=== PATIENT | male | born 1955 ===

== ENCOUNTER 2016-12-12 16:53 | Inpatient (IN) | payer OTHER ==
[2016-12-12] MEDS ORDERED: IBUPROFEN 600 MG TAB PO STA (17:16)
[2016-12-12] MEDS ORDERED: ACETAMINOPHEN TAB 325 MG TAB PO STA ×2 (17:16→18:43)
[2016-12-12] MEDS ORDERED: HYDROmorphone 1 MG/ML 1 ML SYRINGE IVP STA (17:31)
[2016-12-12] MEDS ORDERED: ALBUTEROL NEBULIZED 7.5 MG, IPRATROPIUM NEBULIZED 0.5 MG, SODIUM CHLORIDE 0.9% NEBULIZ ... INHALATION ONE ×3 (17:32)
--- NOTE | 2016-12-12 17:43 | ED ---
SOB HPI - General Source: patient, family, RN notes reviewed Mode of arrival: wheelchair Limitations: no limitations <Alisa Torre - Last Filed: 12/12/16 19:37> <Demian Michael - Last Filed: 12/12/16 19:51> - General Chief Complaint: Shortness of Breath Stated Complaint: Legs Numb Time Seen by Provider: 12/12/16 17:01 - History of Present Illness Initial Comments: 61-year-old male presents to the emergency department with a chief complaint of weakness. The patient has been weak for the past few days. They state that they've noticed changes in his breathing. He stated at home it was down to 84. They state that they have noticed that he has not been eating much and he has been having falls at home due to weakness in his lower extremities. They state that at the beginning of fall this about one week ago he did complain of some neck discomfort and he has pain with movement of the neck. Patient states that there is no fall or injury that developed this discomfort. Patient denies any nausea or vomiting and the patient. The patient states besides his neck hurting he has no complaints. Family states that they do notice obvious shortness of breath as well. They state that they were concerned due to the patient's symptoms so they thought that they should be evaluated. Patient denies any recent chest pain, back pain, abdominal pain, nausea vomiting, numbness or tingling, dysuria or hematuria, constipation or diarrhea, headaches or visual changes, or any other current symptoms. (Alisa Torre) - Related Data Home Medications Medication Instructions Recorded Confirmed ALPRAZolam [Xanax] 0.25 mg PO BID PRN 12/12/16 12/12/16 Aspirin [Adult Low Dose Aspirin EC] 81 mg PO DAILY 12/12/16 12/12/16 Atorvastatin [Lipitor] 20 mg PO DAILY 12/12/16 12/12/16 Glimepiride [Amaryl] 2 mg PO BID 12/12/16 12/12/16 Labetalol [Trandate] 200 mg PO BID 12/12/16 12/12/16 Zolpidem [Ambien] 5 mg PO HS PRN 12/12/16 12/12/16 amLODIPine BESYLATE/BENAZEPRIL 1 cap PO DAILY 12/12/16 12/12/16 [amLODIPine BESYLATE/BENAZEPRIL 10-20 mg] metFORMIN HCL 1,000 mg PO BID 12/12/16 12/12/16 oxyCODONE-APAP 5-325MG [Percocet 0.5 - 1 tab PO Q6HR PRN 12/12/16 12/12/16 5-325 mg] Allergies Allergy/AdvReac Type Severity Reaction Status Date / Time No Known Allergies Allergy Verified 12/12/16 17:16 Review of Systems ROS Other: All systems not noted in ROS Statement are negative. <Alisa Torre - Last Filed: 12/12/16 19:37> ROS Other: All systems not noted in ROS Statement are negative. <Demian Michael - Last Filed: 12/12/16 19:51> ROS Statement: Those systems with pertinent positive or pertinent negative responses have been documented in the HPI. Past Medical History Past Medical History: Diabetes Mellitus, Hypertension History of Any Multi-Drug Resistant Organisms: None Reported Past Surgical History: Hernia Repair Past Psychological History: No Psychological Hx Reported Smoking Status: Never smoker Past Alcohol Use History: None Reported Past Drug Use History: None Reported <Alisa Torre - Last Filed: 12/12/16 19:37> General Exam Limitations: no limitations <Alisa Torre - Last Filed: 12/12/16 19:37> <Demian Michael - Last Filed: 12/12/16 19:51> - General Exam Comments Initial Comments: General: The patient is awake and alert, in no distress, and does not appear acutely ill. Eye: Pupils are equal, round and reactive to light, extra-ocular movements are intact; there is normal conjunctiva bilaterally. No signs of icterus. Ears, nose, mouth and throat: There are dry mucous membranes. Neck: The neck is supple, there is tenderness palpation midline. Cardiovascular: There is a regular rate and rhythm. No murmur, rub or gallop is appreciated. Respiratory: Patient being unable to sit up in the room unable to get a good examination of the patient's lungs at this time. Patient does have an obese body habitus he does appear to have some respiratory distress. Gastrointestinal: Soft, non-distended, non-tender abdomen without masses or organomegaly noted. There is no rebound or guarding present. No CVA tenderness. Bowel sounds are unremarkable. Back: There is no tenderness to palpation in the midline. There is no obvious deformity. No rashes noted. Musculoskeletal: Normal ROM, no tenderness, There is no pedal edema. There is no calf tenderness or swelling. Sensation intact. Pulses equal bilaterally 2+. Neurological: CN II-XII intact, There are no obvious motor or sensory deficits. Coordination appears grossly intact. Speech is normal. Skin: Skin is warm and dry and no rashes or lesions are noted. Psychiatric: Cooperative, appropriate mood & affect, normal judgment. (Alisa Torre) Medical Decision Making - Lab Data Result diagrams: 12/12/16 17:40 12/12/16 17:40 - Radiology Data Radiology results: report reviewed, image reviewed <Alisa Torre - Last Filed: 12/12/16 19:37> - Lab Data Result diagrams: 12/12/16 17:40 12/12/16 17:40 <Demian Michael - Last Filed: 12/12/16 19:51> - Medical Decision Making 61-year-old male with a chief complaint of what appears to be fever and weakness. At this time patient's lab work has been reviewed. Patient has an elevated white blood cell count with a concern for possible pneumonia as well as concern for UTI. Patient was given Rocephin as well as Levaquin here in the emergency department. Patient is also found to be in DKA as well as dehydration at this time. We did give the patient fluid bolus. We did not meet the criteria for fluid hydration due to the fact that the patient is obese and this requires a large fluid bolus of 4358 along with an elevated BNP with concern for possible heart failure as well as for sepsis as well as the DKA. This time we will get a 3 L bolus and the patient can be reevaluated at that time for further fluid necessity. At this time the severity of the case was discussed with the family. We did discuss we will be admitting to the ICU. We did discuss the lab findings. They state that they understood. (Alisa Torre) Decision-making. The patient arrived emergency room with complaint of runs of breath. Labs find of the patient's chest x-ray shows possible left lower lobe pneumonia. Rations labs show white count 12.6 hemoglobin 13 hematocrit of 43, and INR 1.0. Lites show a sodium states his sodium to be low at 128 as chlorides 90. Potassium is 4.0. BUN is elevated at 44 creatinine elevated at 2.12 significantly elevated blood sugar 749. Patient reports that he's been altering his medications at home and has not been taking any medications for the last week or more. Patient is pleasant last gas is 3.4. CK is elevated at 3188 with MB of 6.0 and troponin 0.059. BNP is 1900. Chest x-ray reviewed radiologist suggests left lower lobe pneumonia. Urinalysis shows 10 reds 33 whites. Influenza is negative. Troponin is negative. I examine the patient and interviewed the patient. I discussed the case with Dr. Harrell who is coming emergency room the see the patient. Dr. Michael (Demian Michael) - Lab Data Lab Results 12/12/16 12/12/16 12/12/16 Range/Units 17:40 17:40 17:40 WBC 12.6 H (3.8-10.6) k/uL RBC 4.81 (4.30-5.90) m/uL Hgb 13.8 (13.0-17.5) gm/dL Hct 43.0 (39.0-53.0) % MCV 89.5 (80.0-100.0) fL MCH 28.7 (25.0-35.0) pg MCHC 32.1 (31.0-37.0) g/dL RDW 13.7 (11.5-15.5) % Plt Count 170 (150-450) k/uL Neutrophils % 87 % Lymphocytes % 4 % Monocytes % 6 % Eosinophils % 0 % Basophils % 0 % Neutrophils # 10.9 H (1.3-7.7) k/uL Lymphocytes # 0.5 L (1.0-4.8) k/uL Monocytes # 0.8 (0-1.0) k/uL Eosinophils # 0.0 (0-0.7) k/uL Basophils # 0.1 (0-0.2) k/uL PT (9.0-12.0) sec INR (<1.1) APTT (22.0-30.0) sec Sodium 128 L (137-145) mmol/L Potassium 4.0 (3.5-5.1) mmol/L Chloride 90 L (98-107) mmol/L Carbon Dioxide 25 (22-30) mmol/L Anion Gap 13 mmol/L BUN 44 H (9-20) mg/dL Creatinine 2.12 H (0.66-1.25) mg/dL Est GFR (MDRD) Af Amer 39 (>60 ml/min/1.73 sqM) Est GFR (MDRD) Non-Af 32 (>60 ml/min/1.73 sqM) Glucose 749 H* (74-99) mg/dL Plasma Lactic Acid Juan A 3.4 H* (0.7-2.0) mmol/L Calcium 8.3 L (8.4-10.2) mg/dL Total Bilirubin 1.0 (0.2-1.3) mg/dL AST 77 H (17-59) U/L ALT 47 (21-72) U/L Alkaline Phosphatase 112 (38-126) U/L Total Creatine Kinase (55-170) U/L CK-MB (CK-2) (0.0-2.4) ng/mL CK-MB (CK-2) Rel Index Troponin I (0.000-0.034) ng/mL NT-Pro-B Natriuret Pep pg/mL Total Protein 5.7 L (6.3-8.2) g/dL Albumin 2.9 L (3.5-5.0) g/dL Urine Color Urine Appearance (Clear) Urine pH (5.0-8.0) Ur Specific [place] (1.001-1.035) Urine Protein (Negative) Urine Glucose (UA) (Negative) Urine Ketones (Negative) Urine Blood (Negative) Urine Nitrite (Negative) Urine Bilirubin (Negative) Urine Urobilinogen (<2.0) mg/dL Ur Leukocyte Esterase (Negative) Urine RBC (0-5) /hpf Urine WBC (0-5) /hpf Ur Squamous Epith Cells (0-4) /hpf Urine Bacteria (None) /hpf Acetone, Qual (Negative) Influenza Type A RNA (Not Detectd) Influenza Type B (PCR) (Not Detectd) 12/12/16 12/12/16 12/12/16 Range/Units 17:40 17:40 17:40 WBC (3.8-10.6) k/uL RBC (4.30-5.90) m/uL Hgb (13.0-17.5) gm/dL Hct (39.0-53.0) % MCV (80.0-100.0) fL MCH (25.0-35.0) pg MCHC (31.0-37.0) g/dL RDW (11.5-15.5) % Plt Count (150-450) k/uL Neutrophils % % Lymphocytes % % Monocytes % % Eosinophils % % Basophils % % Neutrophils # (1.3-7.7) k/uL Lymphocytes # (1.0-4.8) k/uL Monocytes # (0-1.0) k/uL Eosinophils # (0-0.7) k/uL Basophils # (0-0.2) k/uL PT 10.6 (9.0-12.0) sec INR 1.0 (<1.1) APTT 25.3 (22.0-30.0) sec Sodium (137-145) mmol/L Potassium (3.5-5.1) mmol/L Chloride (98-107) mmol/L Carbon Dioxide (22-30) mmol/L Anion Gap mmol/L BUN (9-20) mg/dL Creatinine (0.66-1.25) mg/dL Est GFR (MDRD) Af Amer (>60 ml/min/1.73 sqM) Est GFR (MDRD) Non-Af (>60 ml/min/1.73 sqM) Glucose (74-99) mg/dL Plasma Lactic Acid Juan A (0.7-2.0) mmol/L Calcium (8.4-10.2) mg/dL Total Bilirubin (0.2-1.3) mg/dL AST (17-59) U/L ALT (21-72) U/L Alkaline Phosphatase (38-126) U/L Total Creatine Kinase 3188 H (55-170) U/L CK-MB (CK-2) 6.0 H* (0.0-2.4) ng/mL CK-MB (CK-2) Rel Index Troponin I 0.059 H* (0.000-0.034) ng/mL NT-Pro-B Natriuret Pep pg/mL Total Protein (6.3-8.2) g/dL Albumin (3.5-5.0) g/dL Urine Color Urine Appearance (Clear) Urine pH (5.0-8.0) Ur Specific [place] (1.001-1.035) Urine Protein (Negative) Urine Glucose (UA) (Negative) Urine Ketones (Negative) Urine Blood (Negative) Urine Nitrite (Negative) Urine Bilirubin (Negative) Urine Urobilinogen (<2.0) mg/dL Ur Leukocyte Esterase (Negative) Urine RBC (0-5) /hpf Urine WBC (0-5) /hpf Ur Squamous Epith Cells (0-4) /hpf Urine Bacteria (None) /hpf Acetone, Qual (Negative) Influenza Type A RNA Not Detected (Not Detectd) Influenza Type B (PCR) Not Detected (Not Detectd) 12/12/16 12/12/16 12/12/16 Range/Units 17:40 17:40 17:40 WBC (3.8-10.6) k/uL RBC (4.30-5.90) m/uL Hgb (13.0-17.5) gm/dL Hct (39.0-53.0) % MCV (80.0-100.0) fL MCH (25.0-35.0) pg MCHC (31.0-37.0) g/dL RDW (11.5-15.5) % Plt Count (150-450) k/uL Neutrophils % % Lymphocytes % % Monocytes % % Eosinophils % % Basophils % % Neutrophils # (1.3-7.7) k/uL Lymphocytes # (1.0-4.8) k/uL Monocytes # (0-1.0) k/uL Eosinophils # (0-0.7) k/uL Basophils # (0-0.2) k/uL PT (9.0-12.0) sec INR (<1.1) APTT (22.0-30.0) sec Sodium (137-145) mmol/L Potassium (3.5-5.1) mmol/L Chloride (98-107) mmol/L Carbon Dioxide (22-30) mmol/L Anion Gap mmol/L BUN (9-20) mg/dL Creatinine (0.66-1.25) mg/dL Est GFR (MDRD) Af Amer (>60 ml/min/1.73 sqM) Est GFR (MDRD) Non-Af (>60 ml/min/1.73 sqM) Glucose (74-99) mg/dL Plasma Lactic Acid Juan A (0.7-2.0) mmol/L Calcium (8.4-10.2) mg/dL Total Bilirubin (0.2-1.3) mg/dL AST (17-59) U/L ALT (21-72) U/L Alkaline Phosphatase (38-126) U/L Total Creatine Kinase (55-170) U/L CK-MB (CK-2) (0.0-2.4) ng/mL CK-MB (CK-2) Rel Index Troponin I (0.000-0.034) ng/mL NT-Pro-B Natriuret Pep 1900 pg/mL Total Protein (6.3-8.2) g/dL Albumin (3.5-5.0) g/dL Urine Color Yellow Urine Appearance Cloudy (Clear) Urine pH 5.0 (5.0-8.0) Ur Specific [place] 1.014 (1.001-1.035) Urine Protein 1+ H (Negative) Urine Glucose (UA) 4+ H (Negative) Urine Ketones Negative (Negative) Urine Blood Moderate H (Negative) Urine Nitrite Negative (Negative) Urine Bilirubin Negative (Negative) Urine Urobilinogen <2.0 (<2.0) mg/dL Ur Leukocyte Esterase Small H (Negative) Urine RBC 10 H (0-5) /hpf Urine WBC 33 H (0-5) /hpf Ur Squamous Epith Cells 1 (0-4) /hpf Urine Bacteria Occasional H (None) /hpf Acetone, Qual Negative (Negative) Influenza Type A RNA (Not Detectd) Influenza Type B (PCR) (Not Detectd) Critical Care Time Critical Care Time: Yes Total Critical Care Time: 45 <Demian Michael - Last Filed: 12/12/16 19:51> Disposition Time of Disposition: 19:13 Decision Date: 12/12/16 Decision Time: 19:13 <Alisa Torre - Last Filed: 12/12/16 19:37> <Demian Michael - Last Filed: 12/12/16 19:51> Clinical Impression: DKA, type 2, Septic shock, UTI (urinary tract infection), Bilateral pneumonia, Acute CHF (congestive heart failure), Acute kidney injury, Dehydration Disposition: ADMITTED IP TO THIS HOSP Condition: Critical Addendum entered and electronically signed by Alisa Torre PAC 12/12/16 19:37: Sinus tachycardia 108 bpm, normal axis, no atopy, no S-T depressions or elevations,
[2016-12-12] MEDS ORDERED: SODIUM CHLORIDE 0.9% 1,000 ML IV STA ×3 (17:46→19:34)
[2016-12-12 18:18] LABS: Basophils # (A) 0.1 k/uL (0-0.2); Basophils % (A) 0 %; CH 28.9; CHCM 32.4; Eosinophils % (A) 0 %; HDW 2.93; HGB 13.8 gm/dL (13.0-17.5); Luc # (Auto) 0.35; Luc % (Auto) 3; Lymphocytes # (A) 0.5 k/uL (1.0-4.8); Lymphocytes % (A) 4 %; MCH 28.7 pg (25.0-35.0); MCHC 32.1 g/dL (31.0-37.0); MCV 89.5 fL (80.0-100.0); Mean Platelet Volume 8.9; Monocytes # (A) 0.8 k/uL (0-1.0); Monocytes % (A) 6 %; Neutrophils # (A) 10.9 k/uL (1.3-7.7); Neutrophils % (A) 87 %; RBC 4.81 m/uL (4.30-5.90); RDW 13.7 % (11.5-15.5); WBC 12.6 k/uL (3.8-10.6); WBC (Perox) 12.19
--- NOTE | 2016-12-12 18:30 | XR ---
EXAMINATION TYPE: XR chest 2V DATE OF EXAM: 12/12/2016 6:21 PM COMPARISON: NONE HISTORY: Fever per order. Weakness and shortness of breath for 1 day per patient. TECHNIQUE: Frontal and lateral views of the chest are obtained. FINDINGS: Lateral views essentially nondiagnostic due to patient's large body habitus low lung volume s are present. Cardiomegaly is seen. Ectatic aorta is noted. Visualized right lung is clear. Left low er lung is suboptimally evaluated cannot exclude infiltrate at this level. No large pleural effusion or pneumothorax is seen bilaterally. The osseous structures are intact. IMPRESSION: Suboptimal study, there is cardiomegaly and low lung volumes. Cannot exclude left lower l halie infiltrate on patient of this size.
[2016-12-12 18:31] LABS: Appearance,Urine Cloudy (Clear); Bacteria,Urine Occasional /hpf; Bilirubin,Urine Negative (Negative); Glucose,Urine (UA) 4+ (Negative); Ketones,Urine Negative (Negative); Leukocyte Esterase,Urine Small (Negative); Nitrite,Urine Negative (Negative); Particle Count 11429; Protein,Urine 1+ (Negative); RBC,Urine 10 /hpf (0-5); Specific Gravity,Urine 1.014 (1.001-1.035); Squamous Epithelial Cell,Urine 1 /hpf (0-4); UA Billing (MACRO vs. MICRO) MICRO; Urobilinogen,Urine <2.0 mg/dL (<2.0); WBC,Urine 33 /hpf (0-5)
[2016-12-12 18:35] LABS: Calcium 8.3 mg/dL (8.4-10.2); Total Protein 5.7 g/dL (6.3-8.2)
[2016-12-12] MEDS ORDERED: IBUPROFEN 200 MG TAB PO STA (18:44)
[2016-12-12] MEDS: SODIUM CHLORIDE 0.9% 500 ML IV SCH ×2 (18:45→19:15)
[2016-12-12 18:48] LABS: Partial Thromboplastin Time 25.3 sec (22.0-30.0); Prothrombin Time 10.6 sec (9.0-12.0)
[2016-12-12 18:52] LABS: Troponin I 0.059 ng/mL (0.000-0.034)
[2016-12-12] MEDS ORDERED: INSULIN REGULAR BOLUS (FROM DRIP BAG) IV ONE (18:56)
[2016-12-12] MEDS ORDERED: SODIUM CHLORIDE 0.9% 1,000 ML IV SCH (19:00)
[2016-12-12] MEDS ORDERED: D5-0.45% NACL WITH KCL 20MEQ/L 1,000 ML IV SCH (19:00)
--- NOTE | 2016-12-12 19:01 | CT ---
EXAMINATION TYPE: CT brain yesenia garcía DATE OF EXAM: 12/12/2016 6:48 PM COMPARISON: NONE HISTORY: Bilateral leg weakness and numbness. Headache and neck pain. CT DLP: 1659.70 mGycm. Automated Exposure Control for Dose Reduction was Utilized. TECHNIQUE: CT scan of the head and cervical spine are performed without contrast. FINDINGS: There is no acute intracranial hemorrhage or midline shift identified. There is mild vent ricular and sulcal prominence. There is mild low-attenuation periventricular white matter. Old lacun ar infarct right basal ganglia is felt present on axial image 24. The globes are intact and the visua lized sinuses are clear. Cervical spine is visualized in its entirety from C1 through upper thoracic levels and demonstrates r eversal of normal cervical curvature without evidence of acute fracture or dislocation. Prevertebral soft tissue appears within normal limits. The C1-C2 articulation is within normal limits on the cor onal images. Vertebral body heights are maintained. There is moderate spurring and disc space narrowing at C4-C5 t hrough C6-C7 levels. Reconstructed images are suboptimal due to artifact related to body habitus. Axial images C3-C4 level show broad-based central disc protrusion effacing anterior thecal sac and ca using moderate left greater than right neural foraminal narrowing. Axial images at mid to lower cervical levels are suboptimal as are degraded by artifact related to marilynn aviles's body habitus. Some uncovertebral facet degenerative changes and marginal spurring contribute bilateral neural foraminal narrowing at C4-C5 level. Spinal canal is suboptimally evaluated. Lung api avery are not included. IMPRESSION: 1. There is no acute fracture or dislocation evident in the cervical spine. Suboptimal study with str aightening and moderate multilevel degenerative changes. 2. No acute intracranial hemorrhage or midline shift shift is seen. There is mild diffuse age-related cerebral atrophy and chronic small vessel ischemic change with old right-sided lacunar infarct felt present.
[2016-12-12] MEDS ORDERED: LEVOFLOXACIN 750MG-D5W PMX 750 MG in DEXTROSE/WATER 1 150ML.BAG IVPB STA (19:04)
[2016-12-12] MEDS ORDERED: ZOLPIDEM 5 MG TAB PO PRN (19:07)
[2016-12-12] MEDS ORDERED: IPRATROPIUM-ALBUTEROL 3 ML NEB INHALATION PRN (19:13)
[2016-12-12] MEDS ORDERED: LEVOFLOXACIN 750MG-D5W PMX 750 MG in DEXTROSE/WATER 1 150ML.BAG IVPB SCH (19:15)
[2016-12-12] MEDS: INSULIN REGULAR 100 UNIT in SODIUM CHLORIDE 0.9% 100 ML IV SCH ×3 (19:32→23:59)
[2016-12-12 20:03] LABS: Glucose,Whole Blood 596 mg/dL (75-99)
[2016-12-12 20:29] LABS: Glucose,Whole Blood 523 mg/dL (75-99)
[2016-12-12] MEDS ORDERED: SODIUM CHLORIDE 0.9% 2,000 ML IV ONE (20:45)
[2016-12-12] MEDS: NOREPINEPHRIN 4 MG-0.9% NS PMX 4 MG/250 ML ML IV SCH (21:00)
[2016-12-12] MEDS ORDERED: LABETALOL 200 MG TAB PO SCH (21:00)
[2016-12-12 21:01] LABS: Phosphorous 2.9 mg/dL (2.5-4.5); Potassium 3.3 mmol/L (3.5-5.1)
[2016-12-12 21:17] LABS: Glucose,Whole Blood 448 mg/dL (75-99)
[2016-12-12] MEDS: SODIUM CHLORIDE 0.9% 1,000 ML IV SCH (21:33)
[2016-12-12] MEDS ORDERED: NALOXONE 0.4 MG/ML 1 ML VIAL IV PRN (21:53)
[2016-12-12 22:08] LABS: Glucose,Whole Blood 506 mg/dL (75-99)
[2016-12-12] MEDS: FAMOTIDINE 20 MG TAB PO SCH (22:22)
[2016-12-12 23:02] LABS: Glucose,Whole Blood 362 mg/dL (75-99)
--- NOTE | 2016-12-12 23:18 | HP ---
DATE OF ADMISSION: 12/12/2016 Patient is a 61-year-old came to the emergency department quite weak and lethargic found to have highly elevated temperature, the patient only has cough. Patient was found to be severely septic with elevated lactic acid and patient was cyanotic when he came in. The patient also found to have highly elevated blood sugars and quite a bit dehydrate secondary to that. The patient is morbidly obese. Wheezing secondary to morbidly obese, possibility of sleep apnea. The patient was complaining of some questionable dysuria. Denied any history of benign prostatic hypertrophy. Only complaining of minimal cough. Denied any chest pain. Patient actually had a fall because of the weakness I believe but he says because of his floor and he slipped on the floor. Denied any nausea, vomiting, denied any diarrhea. REVIEW OF SYSTEMS: CONSTITUTIONAL: As described in HPI HEENT: No recent visual problems or hearing problems. Denied any sore throat. CARDIOVASCULAR: No chest pain, orthopnea, PND, no palpitations, no syncope. PULMONARY: As described in HPI GASTROINTESTINAL: No diarrhea, no nausea, no vomiting, no abdominal pain. Normoactive bowel sounds. NEUROLOGICAL: No headaches, no weakness, no numbness. HEMATOLOGICAL: Denies any bleeding or petechiae. GENITOURINARY: Denies any burning micturition, frequency, or urgency. MUSCULOSKELETAL/RHEUMATOLOGICAL: Denies any joint pain, swelling, or any muscle pain. ENDOCRINE: Denies any polyuria or polydipsia. The rest of the 14 point review of systems is negative. Home medications: 1. Alprazolam. 2. Aspirin. 3. Atorvastatin. 4. Glimepiride. 5. Labetalol. 6. Ambien. 7. Amlodipine. 8. Metformin. 9. Oxycodone. ALLERGIES: No known drug allergies. PAST MEDICAL HISTORY: Significant for diabetes mellitus, hypertension, morbid obesity, probably undiagnosed sleep apnea. SOCIAL HISTORY: Denied any smoking, alcohol abuse or any drug abuse. PAST SURGICAL HISTORY: Patient had a hernia repair in the past. FAMILY HISTORY: Significant for diabetes mellitus. PHYSICAL EXAMINATION: VITAL SIGNS: Temperature 99.8. A 24-hour T-max is 102.7, pulse of 86, respiratory rate of 28 shallow breathing and blood pressure is 81/44. Patient is presently on Levophed drip, saturating at 93% O2 by nasal cannula. GENERAL: The patient is in significant respiratory distress appears to be in respiratory distress because of lactic acidosis. Alert and oriented x2, morbidly obese. HEENT: Pupils are round and equally reacting to light. EOMI. No scleral icterus. No conjunctival pallor. Normocephalic, atraumatic. No pharyngeal erythema. No thyromegaly. CARDIOVASCULAR: S1 and S2 present. No murmurs, rubs, or gallops. PULMONARY: The patient has decreased air entry into bilateral lung bases. Significant wheezing on exam. No crackles were appreciated. The patient does not have any elevated JVD, thick neck. Patient is not cyanotic when I evaluated the patient. ABDOMEN: Soft, nontender, nondistended, normoactive bowel sounds. No palpable organomegaly. MUSCULOSKELETAL: No joint swelling or deformity. EXTREMITIES: No cyanosis, clubbing, or pedal edema. NEUROLOGICAL: Gross neurological examination did not reveal any focal deficits. SKIN: No rashes. LABORATORY DATA: CBC, CMP is abnormal for elevated WBC count ( ), sodium is 128 secondary to Pseudohyponatremia from hyperglycemia, potassium of 3.3 which will be supplemented and bicarbonate of 21, anion gap of 30, anion gap was secondary to lactic acidosis, not due to DKA. Patient's creatinine is around 2.12 and now 0.5. Unfortunately he received ibuprofen in the ER. Patient's blood sugars when he came in is around 700 and now came down to 448 and a nonspecific elevation of CK to 3188. AST is 77. CK MBs is 6.0. Minimal elevation of troponins 0.59, without any significant EKG changes or chest pain. Urinary protein is 1+, 4+ glucose, moderate blood and small leukocyte esterase, 10 RBC, 33 WBC. Acetone negative. Chest x-ray because of morbid obesity not very clear but patient appears to have some infiltrate of the left lower lung phillips. ASSESSMENT AND PLAN: 1. Severe septic shock requiring patient received 3 L of IV fluids, continue to monitor ( ) normal saline and patient is not in diabetic ketoacidosis although because of highly elevated blood sugars we will continue with IV insulin at this point of time. Patient was started on Levophed drip. 2. Significant intravascular volume depletion and severe dehydration secondary to diuresis secondary to diabetes mellitus and highly elevated blood sugars. Patient will need continued aggressive hydration and management as mentioned above. 3. Hyponatremia appears to be Pseudohyponatremia from hyperglycemia. 4. Hypokalemia secondary to IV fluid resuscitation, which will be supplemented. 5. Acute renal failure, prerenal azotemia, plus possible acute tubular necrosis from severe sepsis. Patient appears to have a BUN and creatinine ratio patient appears to some chronic kidney disease component from diabetic nephropathy and uncontrolled diabetes mellitus . 6. Diabetes mellitus , patient was apparently tried on new medications in the past with significant side effects because of which his primary care physician is in the process of changing the medications. Since then, his blood sugars were not under control. 7. Lactic acidosis due to septic shock as mentioned above. 8. Minimal nonspecific elevation of troponins ( ) from severe sepsis. 9. Severe hyperglycemia. Management as mentioned above. 10. Morbid obesity. 11. Possibility of sleep apnea. 12. My suspicion is low that patient has chronic obstructive pulmonary disease. Patient wheezing is probably related to his morbid obesity and restrictive lung disease. Patient will need sleep study down the line. 13. Possible community acquired pneumonia initially started on ceftriaxone. Because of his severity in the illness we should broaden the spectrum of antibiotic therapy to Zosyn for now and I will obtain sputum cultures and blood cultures. Patient will need GI prophylaxis as well as DVT prophylaxis this time. Patient will be started on Symbicort. Patient is critically ill. I spent about 90 minutes of critical care time in managing the patient.
[2016-12-12] MEDS: HEPARIN SODIUM,PORCINE 5,000 UNIT/ML 1 ML VIAL SQ SCH (23:56)
[2016-12-12] MEDS: PIPERACILLIN-TAZOBACTAM 3.375 GM in DEXTROSE/WATER 1 50ML.BAG IVPB SCH (23:56)
[2016-12-12 23:59] LABS: Glucose,Whole Blood 340 mg/dL (75-99)
[2016-12-13] MEDS ORDERED: IPRATROPIUM-ALBUTEROL 3 ML NEB INHALATION SCH
[2016-12-13 00:48] LABS: Glucose,Whole Blood 309 mg/dL (75-99)
[2016-12-13] MEDS: INSULIN REGULAR 100 UNIT in SODIUM CHLORIDE 0.9% 100 ML IV SCH (00:50)
[2016-12-13 01:50] LABS: Glucose,Whole Blood 220 mg/dL (75-99)
[2016-12-13] MEDS ORDERED: INSULIN GLARGINE 100 UNIT/ML 10 ML VIAL SQ ONE (03:00)
[2016-12-13 03:02] LABS: Glucose,Whole Blood 152 mg/dL (75-99)
[2016-12-13] MEDS: SODIUM CHLORIDE 0.9% 1,000 ML IV SCH ×3 (04:48→21:46)
[2016-12-13 05:06] LABS: Aty Lym Flag Slight; CHCM 33.9; HCT 35.6 % (39.0-53.0); HDW 3.18; HGB 12.1 gm/dL (13.0-17.5); MCH 29.2 pg (25.0-35.0); MCV 85.9 fL (80.0-100.0); Mean Platelet Volume 8.9; RBC 4.15 m/uL (4.30-5.90); RDW 13.5 % (11.5-15.5); WBC 11.1 k/uL (3.8-10.6); WBC (Perox) 11.79
[2016-12-13 05:20] LABS: Magnesium 1.5 mg/dL (1.6-2.3); Phosphorous 3.2 mg/dL (2.5-4.5); Potassium 3.2 mmol/L (3.5-5.1)
[2016-12-13] MEDS ORDERED: Potassium Replacement Protocol 1 EACH MISC MISCELLANE PRN (05:26)
[2016-12-13] MEDS ORDERED: Magnesium Replacement Protocol 1 EACH MISC MISCELLANE PRN (05:26)
[2016-12-13 05:34] LABS: Add Differential Manual Differential
[2016-12-13 05:36] LABS: Manual Review Performed; Nucleated Red Blood Cells 0 /100 WBC (0-0); Total Cells Counted 100
[2016-12-13 05:37] LABS: Large Platelets Present
[2016-12-13] MEDS: POTASSIUM CHLORIDE ER 20 MEQ TAB.ER PO SCH ×2 (06:17→10:29)
[2016-12-13] MEDS: MAGNESIUM SULFATE-D5W PMX 1 GM in DEXTROSE/WATER 1 100ML.BAG IVPB SCH ×2 (06:17→10:41)
[2016-12-13] MEDS: NOREPINEPHRIN 4 MG-0.9% NS PMX 4 MG/250 ML ML IV SCH (06:31)
[2016-12-13] MEDS: IPRATROPIUM-ALBUTEROL 3 ML NEB INHALATION SCH ×4 (07:20→20:21)
[2016-12-13] MEDS: SYMBICORT 160-4.5 MCG INHALER INHALATION SCH ×2 (07:20→20:21)
[2016-12-13 07:26] LABS: Glucose,Whole Blood 275 mg/dL (75-99)
--- NOTE | 2016-12-13 07:30 | XR ---
EXAMINATION TYPE: XR chest 1V DATE OF EXAM: 12/13/2016 6:29 AM CLINICAL HISTORY: Difficulty breathing and pneumonia progress study. TECHNIQUE: Single AP portable upright view of the chest is obtained. COMPARISON: Chest x-ray from one day earlier FINDINGS: Exam suboptimal secondary to patient's large body habitus. Cardiomegaly is redemonstrated. Ectatic aorta is noted. Visualized right lung is clear. Left lower lung remains suboptimally evaluate d cannot exclude infiltrate at this level. Left upper lung is clear. No large pleural effusion or pne umothorax is seen bilaterally. The osseous structures are intact. IMPRESSION: Overall stable findings, cardiomegaly with left lower lung infiltrate and/or atelectasi s not excluded.
[2016-12-13] MEDS: oxyCODONE-APAP 5-325MG 1 EACH TAB PO PRN ×2 (08:26→21:16)
[2016-12-13] MEDS: FAMOTIDINE 20 MG TAB PO SCH (08:37)
[2016-12-13] MEDS: HEPARIN SODIUM,PORCINE 5,000 UNIT/ML 1 ML VIAL SQ SCH (08:37)
[2016-12-13] MEDS: ATORVASTATIN 20 MG TAB PO SCH (08:37)
[2016-12-13] MEDS: PIPERACILLIN-TAZOBACTAM 3.375 GM in DEXTROSE/WATER 1 50ML.BAG IVPB SCH ×2 (08:37→16:55)
[2016-12-13] MEDS ORDERED: AMLODIPINE BESYLATE PO SCH (09:00)
[2016-12-13] MEDS ORDERED: BENAZEPRIL PO SCH (09:00)
[2016-12-13] MEDS ORDERED: [UNRECOGNIZED DRUG - OTHER] PO SCH (09:00)
[2016-12-13] MEDS ORDERED: FUROSEMIDE 10 MG/ML 2 ML VIAL IV SCH (09:00)
[2016-12-13] MEDS ORDERED: AZITHROMYCIN 500 MG in SODIUM CHLORIDE 0.9% 250 ML IVPB SCH (09:00)
[2016-12-13] MEDS ORDERED: PANTOPRAZOLE 40 MG/10 ML VIAL IV SCH (09:00)
[2016-12-13] MEDS: INSULIN LISPRO (humaLOG) 300 UNIT/3 ML VIAL SQ SCH ×5 (09:00→21:17)
--- NOTE | 2016-12-13 09:37 | P.CNPUL ---
History of Present Illness Consult date: 12/13/16 Chief complaint: Sepsis History of present illness: Orally daily obese 61-year-old male patient who weighs approximately 150 kg, came into the emergency department yesterday with generalized weakness, lethargy , fever and feeling sick in general. Immediately the patient was found to be in septic shock. The patient was hypotensive with diminished urine output. He is known to have urethral strictures and chronic urinary retention and previous history of urinary tract infections. As such a UA was done and the findings were quite abnormal and the urine itself was quite dirty and cloudy. At that point, the patient was started on IV fluids for aggressive fluid resuscitation. He got moved to the intensive care unit where he was placed on a combination of Zosyn and Zithromax. The patient was also placed on pressors briefly when he was on norepinephrine infusion and later on 6:30 AM the norepinephrine infusion was discontinued. Most recent blood pressure is in the 108 systolic. Urine output has been uncertain nontender the patient had difficulties in urination. He claims it has been difficult for him to insert a Davalos catheter because of urinary stricture. He refused a Davalos catheter. A urology consultation has been initiated. The patient also has BPH. Meanwhile, the patient was noted to have significantly elevated blood sugar with his blood sugar was in the 700s range. He was started on insulin drip which ultimately got discontinued. Patient is known to have diabetes mellitus and hypertension. He is morbidly obese. Earlier this morning he went into atrial fibrillation with a heart rate of 118. No chest pain. No shortness of breath. Minimal cough. No open wounds or sores. No change in mental status. He is complaining of a neck pain and he has had multiple falls. Note that the CAT scan of the brain and spine was done in the emergency department at time of arrival and it showed no acute intracranial hemorrhage or midline shift. There was mild ventricular prominence. There is evidence of old lacunar infarct in the right basal ganglia. Cervical spine showed moderate degree of multilevel degenerative changes. Note that his lactic acid level has dropped from 3.4 at baseline down to 1.8. Review of Systems 12 point review of system was done and the positive findings are mentioned above in history of present illness. In addition his mental status is improved. He is complaining of neck pain. He has had frequent falls. He has had difficulty with urination and urethral stricture and BPH. He has had previous UTIs. No nausea. No vomiting. No abdominal pain. No chest pain. 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 Patient also has hyperlipidemia, chronic degenerative arthritis and neck pain, lacunar infarct on a CAT scan of the head History of Any Multi-Drug Resistant Organisms: None Reported Past Surgical History: Hernia Repair Additional Past Surgical History / Comment(s): urthera strictures x2 Past Anesthesia/Blood Transfusion Reactions: No Reported Reaction Past Psychological History: No Psychological Hx Reported Smoking Status: Never smoker Past Alcohol Use History: None Reported Past Drug Use History: None Reported Medications and Allergies Home Medications Medication Instructions Recorded Confirmed Type ALPRAZolam [Xanax] 0.25 mg PO BID PRN 12/12/16 12/12/16 History Aspirin [Adult Low Dose Aspirin EC] 81 mg PO DAILY 12/12/16 12/12/16 History Atorvastatin [Lipitor] 20 mg PO DAILY 12/12/16 12/12/16 History Glimepiride [Amaryl] 2 mg PO BID 12/12/16 12/12/16 History Labetalol [Trandate] 200 mg PO BID 12/12/16 12/12/16 History Zolpidem [Ambien] 5 mg PO HS PRN 12/12/16 12/12/16 History amLODIPine BESYLATE/BENAZEPRIL 1 cap PO DAILY 12/12/16 12/12/16 History [amLODIPine BESYLATE/BENAZEPRIL 10-20 mg] metFORMIN HCL 1,000 mg PO BID 12/12/16 12/12/16 History oxyCODONE-APAP 5-325MG [Percocet 0.5 - 1 tab PO Q6HR PRN 12/12/16 12/12/16 History 5-325 mg] Allergies Allergy/AdvReac Type Severity Reaction Status Date / Time No Known Allergies Allergy Verified 12/12/16 17:16 Physical Exam Vitals: Vital Signs Temp Pulse Resp BP Pulse Ox 12/13/16 09:00 108 H 26 H 108/65 95 12/13/16 08:00 98.6 F 125 H 29 H 114/67 95 12/13/16 07:29 108 H 12/13/16 07:20 100 04/30/17 07:00 93 26 H 117/60 96 12/13/16 06:00 96 31 H 109/60 94 L 12/13/16 05:00 96 30 H 119/57 93 L 12/13/16 04:00 98.2 F 89 24 85/63 96 12/13/16 03:00 87 26 H 100/58 94 L 12/13/16 02:00 84 27 H 103/60 94 L 12/13/16 01:00 86 24 118/65 95 12/13/16 00:00 97.5 F L 84 26 H 106/62 94 L 12/12/16 23:18 83 12/12/16 23:07 84 12/12/16 23:00 84 66 H 91/54 94 L 12/12/16 22:00 87 29 H 103/51 88 L 12/12/16 21:20 86 28 H 81/44 93 L 12/12/16 21:10 88 30 H 77/49 94 L 12/12/16 21:00 89 26 H 77/49 94 L 12/12/16 20:50 88 28 H 69/44 92 L 12/12/16 20:40 89 25 H 62/38 89 L 12/12/16 20:30 91 6 L 64/44 92 L 12/12/16 20:26 94 L 12/12/16 20:00 99.8 F H 102 H 24 102/58 98 12/12/16 19:45 106 H 24 99/44 98 Intake and Output 12/12/16 12/13/16 12/13/16 22:59 06:59 14:59 Intake Total 2554.215 2550.50 875 Output Total 0 150 0 Balance 2554.215 2400.50 875 Intake: IV 2400 2000 375 Sodium Chloride 0.9% 1, 400 1000 375 000 ml @ 125 mls/hr IV . Q8H [facility] Rx#:[id number] Sodium Chloride 0.9% 1, 2000 1000 000 ml @ 999 mls/hr IV . Q1H1M [facility] Rx#:[id number] Intake, IV Titration 154.215 400.50 300 Amount Azithromycin 500 mg In 250 Sodium Chloride 0.9% 250 ml @ 125 mls/hr IVPB DAILY [facility] Rx#:[id number] Insulin Regular 100 unit 102.715 202 In Sodium Chloride 0.9% 100 ml @ 0.1 UNITS/KG/HR 14.7 mls/hr IV .Q6H53M [facility] Rx#:[id number] Norepinephrin 4 mg-0.9% 51.5 198.50 Ns Pmx 4 mg In 250 ml @ Titrate IV .Q0M [facility] Rx#: [id number] Piperacillin-Tazobactam 3 50 .375 gm In Dextrose/Water 1 50ml.bag @ 12.5 mls/hr IVPB Q8HR [facility] Rx#: [id number] Oral 150 200 Output: Urine 0 150 0 Other: Voiding Method Urinal # Voids 0 0 Weight 145.7 kg 151.2 kg Morbid obese, calm and comfortable, not in acute distress. His main complaint is neck pain. His neck is hurting and for that reason the patient is trying to get himself comfortable and tries not to move his neck because of pain. The upper cervical spine is a bit tender to palpation. The neck is also painful to passive range of motion.Head exam was generally normal. There was no scleral icterus or corneal arcus. Mucous membranes were moist. No JVDs. No goiter or neck masses. The patient has significant crowding of the posterior oropharynx. Lung sounds are diminished in the lung bases bilaterally. There is no wheezes or rhonchi. Heart sounds are irregular and tachycardic, positive S1-S2 , no significant murmurs appreciated. Abdomen is obese soft nontender. Organs cannot be palpated. No direct tenderness, no rebound tenderness, no guarding. Extremities trace edema there is no cyanosis or clubbing and pulses are diminished bilaterally. Neurologically the patient is awake and alert. No focal neurological deficits. Results - Laboratory Findings CBC and BMP: 12/13/16 04:49 12/13/16 04:49 PT/INR, D-dimer PT 10.6 sec (9.0-12.0) 12/12/16 17:40 INR 1.0 (<1.1) 12/12/16 17:40 Abnormal lab findings: Abnormal Labs 12/12/16 12/12/16 12/12/16 20:01 20:27 20:31 WBC RBC Hgb Hct Plt Count Neutrophils # (Manual) Sodium Potassium Carbon Dioxide BUN Creatinine Glucose POC Glucose (mg/dL) 596 H 523 H Plasma Lactic Acid Juan A 3.3 H* Calcium Magnesium 12/12/16 12/12/16 12/12/16 20:31 21:15 22:06 WBC RBC Hgb Hct Plt Count Neutrophils # (Manual) Sodium 131 L Potassium 3.3 L Carbon Dioxide 21 L BUN 44 H Creatinine 2.50 H Glucose 564 H* POC Glucose (mg/dL) 448 H 506 H Plasma Lactic Acid Juan A Calcium Magnesium 12/12/16 12/12/16 12/13/16 23:01 23:58 00:46 WBC RBC Hgb Hct Plt Count Neutrophils # (Manual) Sodium Potassium Carbon Dioxide BUN Creatinine Glucose POC Glucose (mg/dL) 362 H 340 H 309 H Plasma Lactic Acid Juan A Calcium Magnesium 12/13/16 12/13/16 12/13/16 01:48 02:59 04:49 WBC 11.1 H RBC 4.15 L Hgb 12.1 L Hct 35.6 L Plt Count 142 L Neutrophils # (Manual) 8.8 H Sodium Potassium Carbon Dioxide BUN Creatinine Glucose POC Glucose (mg/dL) 220 H 152 H Plasma Lactic Acid Juan A Calcium Magnesium 12/13/16 12/13/16 04:49 07:24 WBC RBC Hgb Hct Plt Count Neutrophils # (Manual) Sodium 136 L Potassium 3.2 L Carbon Dioxide 21 L BUN 44 H Creatinine 2.50 H Glucose 201 H POC Glucose (mg/dL) 275 H Plasma Lactic Acid Juan A Calcium 7.0 L Magnesium 1.5 L - Diagnostic Findings Chest x-ray: image reviewed Assessment and Plan Plan: Assessment 1 acute septic shock/intravascular volume depletion/dehydration. Suspect a urine checked infection with secondary septicemia. 2 profound hypovolemia 3 diabetes mellitus with severe hyperglycemia, no signs of DKA 4 acute kidney injury secondary to above 5 chronic obstructive uropathy secondary to BPH and urethral strictures 6 new onset atrial fibrillation with rapid ventricular response 7 lactic acidosis, improving 8 morbid obesity 9 chronic obstructive sleep apnea. 10 neck pain/muscle spasm 11 Lacunar infarct of the brain, old and chronic Plan Continue IV fluids for fluid resuscitation. Norepinephrine infusion is already been discontinued. Meanwhile the patient went into atrial fibrillation with rapid ventricular response. We'll put the patient on 5 L of Cardizem drip for rate control and will put the patient IV heparin order an echocardiogram. Meanwhile we'll order a bladder scan to make sure the patient is voiding appropriately. We'll insert the Davalos catheter if needed. We'll obtain urology consultation. We'll obtain ultrasound the kidneys to make her there is no hydronephrosis. Urine cultures. Blood cultures. Continue the Zosyn. Discontinue the Zithromax. Tighter blood sugar control. Percocet for neck pain along with Flexeril for muscle relaxation. We will continue to follow.
[2016-12-13] MEDS ORDERED: IV VANCOMYCIN PER PHARMACY 1 EACH MISC MISCELLANE PRN (09:40)
--- NOTE | 2016-12-13 10:22 | US ---
EXAMINATION TYPE: US kidneys/renal and bladder DATE OF EXAM: 12/13/2016 10:14 AM COMPARISON: NONE CLINICAL HISTORY: 61-year-old male JULIO CESAR. Diabetic, no flank pain. TECHNIQUE: Multiple sonographic images of the kidneys and bladder were obtained. FINDINGS: Incidental echogenic appearance to the adjacent liver. Right Kidney: 12.2 x 6.3 x 6.3 cm Left Kidney: 13.9 x 6.2 x 7.1 cm No hydronephrosis on either side. There is a dromedary hump along the mid left kidney. Partial distention of the bladder limits its evaluation. Neither ureteral jet is seen during the cour se of the exam. IMPRESSION: 1. No hydronephrosis. 2. Somewhat echogenic appearance to the liver. Correlate for underlying fatty infiltration.
[2016-12-13] MEDS: HEPARIN SODIUM,PORCINE/D5W PMX 25,000 UNIT in DEXTROSE/WATER 1 500ML.BAG IV SCH (10:28)
[2016-12-13] MEDS: DILTIAZEM 125 MG in SODIUM CHLORIDE 0.9% 100 ML IV SCH (10:29)
[2016-12-13] MEDS ORDERED: VANCOMYCIN 2,250 MG in SODIUM CHLORIDE 0.9% 500 ML IVPB ONE (11:00)
[2016-12-13] MEDS: CYCLOBENZAPRINE 10 MG TAB PO PRN ×2 (11:11→21:46)
[2016-12-13 12:14] LABS: Glucose,Whole Blood 308 mg/dL (75-99)
[2016-12-13] MEDS ORDERED: INSULIN LISPRO (humaLOG) 300 UNIT/3 ML VIAL SQ ONE (12:54)
--- NOTE | 2016-12-13 15:59 | P.CRDCN ---
History of Present Illness Consult date: 12/13/16 History of present illness: This is a pleasant 61-year-old gentleman with a past medical history significant for morbid obesity, diabetes, hypertension, and dyslipidemia, was admitted to the emergency room because he was not feeling well. The patient history started about a week ago when he was experiencing some exertional dyspnea up on doing some work at home. The symptoms got worse over the next few days. Earlier today he went to the bathroom and obviously he fell on the floor and he was unable to get up because he was so weak. He did not experience any chest pain or discomfort and he did not lose his consciousness. The family brought the patient to the emergency room. In the ER the patient was found to have fever and also he was diagnosed with septic shock where he required vasopressors for brief period of time. We get involved in the care of the patient because he developed an A. fib with RVR. The patient is not aware of any prior cardiac history and there were seen a web search evaluator in the past. Currently the patient is in A. fib with uncontrolled heart rate. The blood pressure has been stable without any vasopressors. He was initiated on Cardizem. Beside that he was also started on heparin IV. I will keep the patient on the Cardizem IV as far as he is maintaining the blood pressure. Its a blood pressure drop I will stop the Cardizem and start the patient on amiodarone IV. I will obtain an echocardiogram with Doppler. 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 Patient also has hyperlipidemia, chronic degenerative arthritis and neck pain, lacunar infarct on a CAT scan of the head History of Any Multi-Drug Resistant Organisms: None Reported Past Surgical History: Hernia Repair Additional Past Surgical History / Comment(s): urthera strictures x2 Past Anesthesia/Blood Transfusion Reactions: No Reported Reaction Past Psychological History: No Psychological Hx Reported Smoking Status: Never smoker Past Alcohol Use History: None Reported Past Drug Use History: None Reported Medications and Allergies Home Medications Medication Instructions Recorded Confirmed Type ALPRAZolam [Xanax] 0.25 mg PO BID PRN 12/12/16 12/12/16 History Aspirin [Adult Low Dose Aspirin EC] 81 mg PO DAILY 12/12/16 12/12/16 History Atorvastatin [Lipitor] 20 mg PO DAILY 12/12/16 12/12/16 History Glimepiride [Amaryl] 2 mg PO BID 12/12/16 12/12/16 History Labetalol [Trandate] 200 mg PO BID 12/12/16 12/12/16 History Zolpidem [Ambien] 5 mg PO HS PRN 12/12/16 12/12/16 History amLODIPine BESYLATE/BENAZEPRIL 1 cap PO DAILY 12/12/16 12/12/16 History [amLODIPine BESYLATE/BENAZEPRIL 10-20 mg] metFORMIN HCL 1,000 mg PO BID 12/12/16 12/12/16 History oxyCODONE-APAP 5-325MG [Percocet 0.5 - 1 tab PO Q6HR PRN 12/12/16 12/12/16 History 5-325 mg] Allergies Allergy/AdvReac Type Severity Reaction Status Date / Time No Known Allergies Allergy Verified 12/12/16 17:16 Physical Exam Vitals: Vital Signs Temp Pulse Resp BP Pulse Ox 12/13/16 15:00 109 H 29 H 121/72 100 12/13/16 14:00 114 H 26 H 106/66 98 12/13/16 13:00 131 H 26 H 117/71 94 L 12/13/16 12:00 98.3 F 115 H 22 96/70 94 L 12/13/16 11:26 114 H 12/13/16 11:17 106 H 12/13/16 11:00 114 H 26 H 115/60 95 12/13/16 10:00 119 H 27 H 102/57 96 12/13/16 09:00 108 H 26 H 108/65 95 12/13/16 08:00 98.6 F 125 H 29 H 114/67 95 12/13/16 07:29 108 H 12/13/16 07:20 100 12/13/16 07:00 93 26 H 117/60 96 12/13/16 06:00 96 31 H 109/60 94 L 12/13/16 05:00 96 30 H 119/57 93 L 12/13/16 04:00 98.2 F 89 24 85/63 96 12/13/16 03:00 87 26 H 100/58 94 L 12/13/16 02:00 84 27 H 103/60 94 L 12/13/16 01:00 86 24 118/65 95 12/13/16 00:00 97.5 F L 84 26 H 106/62 94 L 12/12/16 23:18 83 12/12/16 23:07 84 12/12/16 23:00 84 66 H 91/54 94 L 12/12/16 22:00 87 29 H 103/51 88 L 12/12/16 21:20 86 28 H 81/44 93 L 12/12/16 21:10 88 30 H 77/49 94 L 12/12/16 21:00 89 26 H 77/49 94 L 12/12/16 20:50 88 28 H 69/44 92 L 12/12/16 20:40 89 25 H 62/38 89 L 12/12/16 20:30 91 6 L 64/44 92 L 12/12/16 20:26 94 L 12/12/16 20:00 99.8 F H 102 H 24 102/58 98 12/12/16 19:45 106 H 24 99/44 98 Intake and Output 12/13/16 12/13/16 12/13/16 06:59 14:59 22:59 Intake Total 2550.50 2534.2 249.9 Output Total 150 425 Balance 2400.50 2109.2 249.9 Intake: IV 2000 1000 125 Sodium Chloride 0.9% 1, 1000 1000 125 000 ml @ 125 mls/hr IV . Q8H [facility] Rx#:[id number] Sodium Chloride 0.9% 1, 1000 000 ml @ 999 mls/hr IV . Q1H1M [facility] Rx#:[id number] Intake, IV Titration 400.50 994.2 24.9 Amount Azithromycin 500 mg In 250 Sodium Chloride 0.9% 250 ml @ 125 mls/hr IVPB DAILY [facility] Rx#:[id number] Diltiazem 125 mg In 15 5 Sodium Chloride 0.9% 100 ml @ 5 MG/HR 5 mls/hr IV .Q24H [facility] Rx#:[id number] Heparin Sodium,Porcine/ 79.2 19.9 D5w Pmx 25,000 unit In Dextrose/Water 1 500ml. bag @ 6.6 UNITS/KG/HR 19. 95 mls/hr IV .Q24H [facility] Rx #:[id number] Insulin Regular 100 unit 202 In Sodium Chloride 0.9% 100 ml @ 0.1 UNITS/KG/HR 14.7 mls/hr IV .Q6H53M [facility] Rx#:[id number] Magnesium Sulfate-D5w Pmx 100 1 gm In Dextrose/Water 1 100ml.bag @ 100 mls/hr IVPB Q1H [facility] Rx#: [id number] Norepinephrin 4 mg-0.9% 198.50 Ns Pmx 4 mg In 250 ml @ Titrate IV .Q0M [facility] Rx#: [id number] Piperacillin-Tazobactam 3 50 .375 gm In Dextrose/Water 1 50ml.bag @ 12.5 mls/hr IVPB Q8HR [facility] Rx#: [id number] Vancomycin 2,250 mg In 500 Sodium Chloride 0.9% 500 ml @ 167 mls/hr IVPB Q24H [facility] Rx#:[id number] Oral 150 540 100 Output: Urine 150 425 Post Void Residual 0 Other: Voiding Method Urinal Urinal # Voids 0 0 Weight 151.2 kg - Constitutional General appearance: mild distress - Respiratory Respiratory: bilateral: diminished - Cardiovascular Rhythm: irregularly irregular Results 12/13/16 04:49 12/13/16 04:49 CBC 12/13/16 Range/Units 04:49 WBC 11.1 H (3.8-10.6) k/uL RBC 4.15 L (4.30-5.90) m/uL Hgb 12.1 L (13.0-17.5) gm/dL Hct 35.6 L (39.0-53.0) % Plt Count 142 L (150-450) k/uL Comprehensive Metabolic Panel 12/12/16 12/13/16 Range/Units 20:31 04:49 Sodium 131 L 136 L (137-145) mmol/L Potassium 3.3 L 3.2 L (3.5-5.1) mmol/L Chloride 100 106 (98-107) mmol/L Carbon Dioxide 21 L 21 L (22-30) mmol/L BUN 44 H 44 H (9-20) mg/dL Creatinine 2.50 H 2.50 H (0.66-1.25) mg/dL Glucose 564 H* 201 H (74-99) mg/dL Calcium 7.0 L (8.4-10.2) mg/dL Current Medications Generic Name Dose Route Start Last Admin Trade Name Freq PRN Reason Stop Dose Admin Albuterol/Ipratropium 3 ml 12/12/16 19:13 12/12/16 23:14 Duoneb 0.5 Mg-3 Mg/3 Ml Soln INHALATION 3 ml RT-QID PRN Administration Shortness Of Breath Or Wheezing Albuterol/Ipratropium 3 ml 12/13/16 08:00 12/13/16 11:17 Duoneb 0.5 Mg-3 Mg/3 Ml Soln INHALATION 3 ml RT-QID [facility] Administration Alprazolam 0.25 mg 12/12/16 19:07 Xanax PO BID PRN Anxiety Atorvastatin Calcium 20 mg 12/13/16 09:00 12/13/16 08:37 Lipitor PO 20 mg DAILY [facility] Administration Budesonide/Formoterol Fumarate 2 puff 12/13/16 08:00 12/13/16 07:20 Symbicort 160-4.5 Mcg Inhaler INHALATION 2 puff RT-BID [facility] Administration Cyclobenzaprine HCl 10 mg 12/13/16 09:38 12/13/16 11:11 Flexeril PO 10 mg TID PRN Administration Muscle Spasm Famotidine 20 mg 12/14/16 09:00 Pepcid PO DAILY [facility] Heparin Sodium (Porcine) 0 unit 12/13/16 09:39 Heparin IV PER PROTOCOL PRN Low PTT Protocol Sodium Chloride 1,000 mls @ 125 mls/hr 12/12/16 19:45 12/13/16 12:55 Saline 0.9% IV 125 mls/hr .Q8H [facility] Administration Norepinephrine Bitartrate 4 mg in 250 mls @ 0 mls/hr 12/12/16 20:45 12/13/16 06:31 Levophed-0.9% Nacl 4 Mg/250ml Pmx IV 0 mcg/min .Q0M [facility] 0 mls/hr Protocol Titration Titrate Piperacillin/Tazobactam/ 50 mls @ 12.5 mls/hr 12/13/16 00:00 12/13/16 08:37 Dextrose 3.375 gm/ IV Solution IVPB 12.5 mls/hr Q8HR [facility] Administration Diltiazem HCl 125 mg/ Sodium 125 mls @ 5 mls/hr 12/13/16 09:45 12/13/16 10:29 Chloride IV 5 mg/hr .Q24H [facility] 5 mls/hr Protocol Administration 5 MG/HR Heparin Sodium/Dextrose 25,000 500 mls @ 19.95 mls/hr 12/13/16 09:45 10:28 unit/ IV Solution IV 6.6 units/kg/hr .Q24H [facility] 19.95 mls/hr Protocol Administration 6.6 UNITS/KG/HR Vancomycin HCl 2,250 mg/ 500 mls @ 167 mls/hr 12/14/16 06:00 Sodium Chloride IVPB Q24H [facility] Insulin Glargine 35 unit 12/13/16 21:00 Lantus SQ HS [facility] Insulin Human Lispro 0 unit 12/13/16 07:30 12/13/16 12:47 Humalog SQ 5 unit ACHS [facility] Administration Protocol Insulin Human Lispro 10 unit 12/13/16 17:30 Humalog SQ AC-TID [facility] Miscellaneous Information 1 each 12/13/16 05:26 Magnesium Per Protocol MISCELLANE DAILY PRN Per Protocol Protocol Miscellaneous Information 1 each 12/13/16 05:26 Potassium Per Protocol MISCELLANE DAILY PRN Per Protocol Protocol Morphine Sulfate 4 mg 12/12/16 19:14 Morphine Sulfate (Inj) IVP Q4HR PRN Pain Naloxone HCl 0.2 mg 12/12/16 21:53 Narcan IV Q2M PRN Opioid Reversal Oxycodone/Acetaminophen 1 each 12/12/16 19:07 12/13/16 08:26 Percocet 5-325 PO 1 each Q6HR PRN Administration Pain Zolpidem Tartrate 5 mg 12/12/16 19:07 Ambien PO HS PRN Insomnia Intake and Output 12/13/16 12/13/16 12/13/16 06:59 14:59 22:59 Intake Total 2550.50 2534.2 249.9 Output Total 150 425 Balance 2400.50 2109.2 249.9 Intake: IV 2000 1000 125 Sodium Chloride 0.9% 1, 1000 1000 125 000 ml @ 125 mls/hr IV . Q8H [facility] Rx#:[id number] Sodium Chloride 0.9% 1, 1000 000 ml @ 999 mls/hr IV . Q1H1M [facility] Rx#:[id number] Intake, IV Titration 400.50 994.2 24.9 Amount Azithromycin 500 mg In 250 Sodium Chloride 0.9% 250 ml @ 125 mls/hr IVPB DAILY [facility] Rx#:[id number] Diltiazem 125 mg In 15 5 Sodium Chloride 0.9% 100 ml @ 5 MG/HR 5 mls/hr IV .Q24H [facility] Rx#:[id number] Heparin Sodium,Porcine/ 79.2 19.9 D5w Pmx 25,000 unit In Dextrose/Water 1 500ml. bag @ 6.6 UNITS/KG/HR 19. 95 mls/hr IV .Q24H [facility] Rx #:[id number] Insulin Regular 100 unit 202 In Sodium Chloride 0.9% 100 ml @ 0.1 UNITS/KG/HR 14.7 mls/hr IV .Q6H53M [facility] Rx#:[id number] Magnesium Sulfate-D5w Pmx 100 1 gm In Dextrose/Water 1 100ml.bag @ 100 mls/hr IVPB Q1H [facility] Rx#: [id number] Norepinephrin 4 mg-0.9% 198.50 Ns Pmx 4 mg In 250 ml @ Titrate IV .Q0M [facility] Rx#: [id number] Piperacillin-Tazobactam 3 50 .375 gm In Dextrose/Water 1 50ml.bag @ 12.5 mls/hr IVPB Q8HR [facility] Rx#: [id number] Vancomycin 2,250 mg In 500 Sodium Chloride 0.9% 500 ml @ 167 mls/hr IVPB Q24H [facility] Rx#:[id number] Oral 150 540 100 Output: Urine 150 425 Post Void Residual 0 Other: Voiding Method Urinal Urinal # Voids 0 0 Weight 151.2 kg 12/13/16 04:49 12/13/16 04:49 Assessment and Plan Plan: Assessment Septic shock A. fib with RVR Morbid obesity Acute renal failure Hypovolemia Plan Agree to keep the patient on Cardizem and drip as far as he is maintaining blood pressure The patient was initiated on heparin IV we'll continue that Obtain an echocardiogram was Doppler Follow-up with the patient
[2016-12-13 16:53] LABS: Calcium 7.2 mg/dL (8.4-10.2); Potassium 3.7 mmol/L (3.5-5.1); Total Bilirubin 0.4 mg/dL (0.2-1.3)
--- NOTE | 2016-12-13 17:08 | PN ---
Patient is a 61-year-old came into the emergency department with septic shock and patient is in septic shock. Source is not very clear. It can be either pneumonia or UTI. Patient is bacteremic awaiting cultures. We will repeat ( ) the patient went into atrial fibrillation. Patient is off Levophed drip at this point of time. Continue with IV fluids. Patient had an ultrasound of the abdomen. Multiple consultants following the patient. Patient went into atrial fibrillation after which patient is started on IV heparin and Cardizem drip. REVIEW OF SYSTEMS: CARDIOVASCULAR: No chest pain, no orthopnea, no PND, no palpitations. PULMONARY: Denied any shortness of breath. No cough or hemoptysis. GASTROINTESTINAL: No diarrhea, nausea or vomiting. No abdominal pain. Normoactive bowel sounds. NEUROLOGIC: No headaches, no weakness, no numbness. Patient is feeling much better compared to yesterday. PHYSICAL EXAMINATION: Temperature 98.5, pulse of 109. Patient is in A. fib, irregularly irregular rhythm, respiratory rate of 29, blood pressure is 129/72. Saturating at 97% on 4 liters O2 by nasal cannula. GENERAL: On examination the patient looks much better compared to yesterday, although still in is in distress, morbidly obese. HEENT: Pupils are round and equally reacting to light. EOMI. No scleral icterus. No conjunctival pallor. Normocephalic, atraumatic. No pharyngeal erythema. No thyromegaly. CARDIOVASCULAR: S1 and S2 present. Patient is irregularly irregular rhythm. PULMONARY: Chest is clear to auscultation, no wheezing or crackles. ABDOMEN: Soft, nontender, nondistended, normoactive bowel sounds. No palpable organomegaly. MUSCULOSKELETAL: No joint swelling or deformity. EXTREMITIES: No cyanosis, clubbing, or pedal edema. NEUROLOGICAL: Gross neurological examination did not reveal any focal deficits. SKIN: No rashes. LABORATORY DATA: CBC, and BNP are abnormal for improved leukocytosis, sodium of 136, potassium 3.2, mildly worsening kidney function which is expected to worsen initially and get back to normal, come down. Patient may have a component of CKD, magnesium of 1.5 which will be supplemented, calcium is 7, corrected calcium should be okay. ASSESSMENT AND PLAN: 1. Severe septic shock. Shock is improving. Patient is bacteremic with gram-positive cocci. Repeat blood cultures tomorrow and the day after. Patient will be continued on Zosyn and vancomycin. Possibility of ( ) source, possible sources as mentioned above. 2. Significant intravascular volume depletion, severe dehydration secondary to excessive diuresis from diabetes mellitus, continue with aggressive IV hydration. 3. Pseudohyponatremia from hyperglycemia, which improved with the resolution of hyperglycemia. 4. Type 2 diabetes mellitus, patient Lantus and premeal insulin dosing was uptitrated. 5. Atrial fibrillation. Management as mentioned above. Echocardiogram will be obtained. 6. Acute renal failure from prerenal azotemia from acute tubular necrosis as well as from severe sepsis. 7. The patient may have a component of diabetic nephropathy and chronic kidney disease. 8. Diabetes mellitus type 2 uncontrolled blood sugars. 9. Lactic acidosis due to septic shock which improved. 10. Mild, nonspecific elevation of troponin secondary to demand ischemia. 11. Mild morbid obesity. 12. Possibility of sleep apnea.
[2016-12-13] MEDS: HEPARIN SODIUM,PORCINE 5,000 UNIT/ML 1 ML VIAL IV PRN (17:10)
[2016-12-13] MEDS ORDERED: POTASSIUM CHLORIDE ER 20 MEQ TAB.ER PO ONE (17:30)
[2016-12-13 17:39] LABS: Magnesium 2.2 mg/dL (1.6-2.3)
[2016-12-13 17:49] LABS: Glucose,Whole Blood 390 mg/dL (75-99)
[2016-12-13] MEDS ORDERED: INSULIN GLARGINE 100 UNIT/ML 10 ML VIAL SQ SCH (21:00)
[2016-12-13 21:09] LABS: Glucose,Whole Blood 324 mg/dL (75-99)
[2016-12-14] MEDS: PIPERACILLIN-TAZOBACTAM 3.375 GM in DEXTROSE/WATER 1 50ML.BAG IVPB SCH ×4 (00:31→23:06)
[2016-12-14] MEDS: HEPARIN SODIUM,PORCINE 5,000 UNIT/ML 1 ML VIAL IV PRN ×2 (00:32→14:35)
[2016-12-14 05:10] LABS: Basophils % (A) 0 %; CH 28.6; CHCM 32.3; Eosinophils # (A) 0.1 k/uL (0-0.7); Eosinophils % (A) 1 %; HCT 37.1 % (39.0-53.0); HDW 3.01; HGB 11.9 gm/dL (13.0-17.5); Luc # (Auto) 0.42; Luc % (Auto) 4; Lymphocytes # (A) 0.8 k/uL (1.0-4.8); Lymphocytes % (A) 8 %; MCH 28.7 pg (25.0-35.0); MCHC 32.2 g/dL (31.0-37.0); MCV 89.1 fL (80.0-100.0); Mean Platelet Volume 8.8; Monocytes # (A) 0.7 k/uL (0-1.0); Monocytes % (A) 7 %; Neutrophils # (A) 7.7 k/uL (1.3-7.7); Neutrophils % (A) 79 %; RBC 4.16 m/uL (4.30-5.90); RDW 13.6 % (11.5-15.5); WBC 9.7 k/uL (3.8-10.6)
[2016-12-14 05:24] LABS: Calcium 7.1 mg/dL (8.4-10.2); Potassium 3.6 mmol/L (3.5-5.1)
[2016-12-14] MEDS: HEPARIN SODIUM,PORCINE/D5W PMX 25,000 UNIT in DEXTROSE/WATER 1 500ML.BAG IV SCH ×5 (05:51→17:28)
[2016-12-14] MEDS: SODIUM CHLORIDE 0.9% 1,000 ML IV SCH ×3 (05:52→12:06)
[2016-12-14] MEDS: DILTIAZEM 125 MG in SODIUM CHLORIDE 0.9% 100 ML IV SCH ×3 (05:53→12:06)
[2016-12-14] MEDS ORDERED: VANCOMYCIN 2,250 MG in SODIUM CHLORIDE 0.9% 500 ML IVPB SCH (06:00)
[2016-12-14] MEDS ORDERED: POTASSIUM CHLORIDE ER 20 MEQ TAB.ER PO SCH ×2 (06:00→14:00)
--- NOTE | 2016-12-14 07:24 | XR ---
EXAMINATION TYPE: XR chest 1V DATE OF EXAM: 12/14/2016 6:42 AM HISTORY: Shortness of breath. COMPARISON: 12/13/2016 TECHNIQUE: Single view of the chest is submitted. FINDINGS: Demonstrated are scattered senescent parenchymal change. There is no evidence for focal infiltrate. The heart is stable. Hilar and mediastinal structures are within normal limits. Degenerative changes are seen of the dorsal spine. IMPRESSION: 1. Chronic changes without evidence for acute pulmonary disease.
[2016-12-14 07:27] LABS: Glucose,Whole Blood 323 mg/dL (75-99)
[2016-12-14] MEDS: SYMBICORT 160-4.5 MCG INHALER INHALATION SCH ×2 (08:10→18:04)
[2016-12-14] MEDS: IPRATROPIUM-ALBUTEROL 3 ML NEB INHALATION SCH ×4 (08:10→18:04)
[2016-12-14] MEDS: INSULIN LISPRO (humaLOG) 300 UNIT/3 ML VIAL SQ SCH ×7 (08:16→21:08)
[2016-12-14] MEDS: ATORVASTATIN 20 MG TAB PO SCH (08:20)
[2016-12-14] MEDS: FAMOTIDINE 20 MG TAB PO SCH (08:20)
[2016-12-14] MEDS: CYCLOBENZAPRINE 10 MG TAB PO PRN (08:24)
--- NOTE | 2016-12-14 09:05 | P.GSCN ---
History of Present Illness Consult date: 12/14/16 Reason for Consult: Urethral stricture Requesting physician: Abel Cantrell History of present illness: Mr. Garcia is a 61-year-old male with known urethral stricture disease. He underwent a direct visual internal ureterotomy (DVIU) by Dr. Plasencia on 2 occasions, in 2009 and in 2010. He was self catheterizing, but is now unable to do so. He reports a weak stream, but feels that he empties his bladder. He reports occasional mild dysuria. Blladder Scan showed complete bladder emptying. Review of Systems - Genitourinary Reports dysuria, Reports urinary hesitancy Past Medical History Past Medical History: Diabetes Mellitus, Hypertension Additional Past Medical History / Comment(s): Morbid obesity, diabetes mellitus , hypertension, 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 Patient also has hyperlipidemia, chronic degenerative arthritis and neck pain, lacunar infarct on a CAT scan of the head History of Any Multi-Drug Resistant Organisms: None Reported Past Surgical History: Hernia Repair Additional Past Surgical History / Comment(s): urthera strictures x2 Past Anesthesia/Blood Transfusion Reactions: No Reported Reaction Past Psychological History: No Psychological Hx Reported Smoking Status: Never smoker Past Alcohol Use History: None Reported Past Drug Use History: None Reported Medications and Allergies Home Medications Medication Instructions Recorded Confirmed Type ALPRAZolam [Xanax] 0.25 mg PO BID PRN 12/12/16 12/12/16 History Aspirin [Adult Low Dose Aspirin EC] 81 mg PO DAILY 12/12/16 12/12/16 History Atorvastatin [Lipitor] 20 mg PO DAILY 12/12/16 12/12/16 History Glimepiride [Amaryl] 2 mg PO BID 12/12/16 12/12/16 History Labetalol [Trandate] 200 mg PO BID 12/12/16 12/12/16 History Zolpidem [Ambien] 5 mg PO HS PRN 12/12/16 12/12/16 History amLODIPine BESYLATE/BENAZEPRIL 1 cap PO DAILY 12/12/16 12/12/16 History [amLODIPine BESYLATE/BENAZEPRIL 10-20 mg] metFORMIN HCL 1,000 mg PO BID 12/12/16 12/12/16 History oxyCODONE-APAP 5-325MG [Percocet 0.5 - 1 tab PO Q6HR PRN 12/12/16 12/12/16 History 5-325 mg] Allergies Allergy/AdvReac Type Severity Reaction Status Date / Time No Known Allergies Allergy Verified 12/12/16 17:16 Surgical - Exam Vital Signs Temp Pulse Resp BP Pulse Ox 102 F H 110 H 22 119/71 92 L 12/12/16 16:57 12/12/16 16:57 12/12/16 16:57 12/12/16 16:57 12/12/16 16:57 - General well developed, well nourished, no distress, obese - Abdomen Abdomen: soft, non tender, no guarding, no rigid, no rebound - Psychiatric oriented to time, oriented to person, oriented to place, speech is normal, memory intact Results - Labs 12/14/16 04:04 12/14/16 04:04 Abnormal Lab Results - Last 24 Hours (Table) 12/13/16 12/13/16 12/13/16 Range/Units 12:11 16:21 17:48 RBC (4.30-5.90) m/uL Hgb (13.0-17.5) gm/dL Hct (39.0-53.0) % Plt Count (150-450) k/uL Lymphocytes # (1.0-4.8) k/uL APTT (22.0-30.0) sec Sodium 134 L (137-145) mmol/L Carbon Dioxide (22-30) mmol/L BUN 47 H (9-20) mg/dL Creatinine 2.48 H (0.66-1.25) mg/dL Glucose 355 H (74-99) mg/dL POC Glucose (mg/dL) 308 H 390 H (75-99) mg/dL Calcium 7.2 L (8.4-10.2) mg/dL Total Protein 5.0 L (6.3-8.2) g/dL Albumin 2.3 L (3.5-5.0) g/dL 12/13/16 12/14/16 12/14/16 Range/Units 21:07 04:04 04:04 RBC 4.16 L (4.30-5.90) m/uL Hgb 11.9 L (13.0-17.5) gm/dL Hct 37.1 L (39.0-53.0) % Plt Count 147 L (150-450) k/uL Lymphocytes # 0.8 L (1.0-4.8) k/uL APTT (22.0-30.0) sec Sodium (137-145) mmol/L Carbon Dioxide 21 L (22-30) mmol/L BUN 49 H (9-20) mg/dL Creatinine 2.69 H (0.66-1.25) mg/dL Glucose 332 H (74-99) mg/dL POC Glucose (mg/dL) 324 H (75-99) mg/dL Calcium 7.1 L (8.4-10.2) mg/dL Total Protein (6.3-8.2) g/dL Albumin (3.5-5.0) g/dL 12/14/16 12/14/16 Range/Units 04:04 07:25 RBC (4.30-5.90) m/uL Hgb (13.0-17.5) gm/dL Hct (39.0-53.0) % Plt Count (150-450) k/uL Lymphocytes # (1.0-4.8) k/uL APTT 34.0 H (22.0-30.0) sec Sodium (137-145) mmol/L Carbon Dioxide (22-30) mmol/L BUN (9-20) mg/dL Creatinine (0.66-1.25) mg/dL Glucose (74-99) mg/dL POC Glucose (mg/dL) 323 H (75-99) mg/dL Calcium (8.4-10.2) mg/dL Total Protein (6.3-8.2) g/dL Albumin (3.5-5.0) g/dL Diabetes panel 12/13/16 12/14/16 Range/Units 16:21 04:04 Sodium 134 L 137 (137-145) mmol/L Potassium 3.7 3.6 (3.5-5.1) mmol/L Chloride 104 106 (98-107) mmol/L Carbon Dioxide 22 21 L (22-30) mmol/L BUN 47 H 49 H (9-20) mg/dL Creatinine 2.48 H 2.69 H (0.66-1.25) mg/dL Glucose 355 H 332 H (74-99) mg/dL Calcium 7.2 L 7.1 L (8.4-10.2) mg/dL AST 50 (17-59) U/L ALT 43 (21-72) U/L Alkaline Phosphatase 83 (38-126) U/L Total Protein 5.0 L (6.3-8.2) g/dL Albumin 2.3 L (3.5-5.0) g/dL Calcium panel 12/13/16 12/14/16 Range/Units 16:21 04:04 Calcium 7.2 L 7.1 L (8.4-10.2) mg/dL Phosphorus 3.0 (2.5-4.5) mg/dL Albumin 2.3 L (3.5-5.0) g/dL Pituitary panel 12/13/16 12/14/16 Range/Units 16:21 04:04 Sodium 134 L 137 (137-145) mmol/L Potassium 3.7 3.6 (3.5-5.1) mmol/L Chloride 104 106 (98-107) mmol/L Carbon Dioxide 22 21 L (22-30) mmol/L BUN 47 H 49 H (9-20) mg/dL Creatinine 2.48 H 2.69 H (0.66-1.25) mg/dL Glucose 355 H 332 H (74-99) mg/dL Calcium 7.2 L 7.1 L (8.4-10.2) mg/dL Adrenal panel 12/13/16 12/14/16 Range/Units 16:21 04:04 Sodium 134 L 137 (137-145) mmol/L Potassium 3.7 3.6 (3.5-5.1) mmol/L Chloride 104 106 (98-107) mmol/L Carbon Dioxide 22 21 L (22-30) mmol/L BUN 47 H 49 H (9-20) mg/dL Creatinine 2.48 H 2.69 H (0.66-1.25) mg/dL Glucose 355 H 332 H (74-99) mg/dL Calcium 7.2 L 7.1 L (8.4-10.2) mg/dL Total Bilirubin 0.4 (0.2-1.3) mg/dL AST 50 (17-59) U/L ALT 43 (21-72) U/L Alkaline Phosphatase 83 (38-126) U/L Total Protein 5.0 L (6.3-8.2) g/dL Albumin 2.3 L (3.5-5.0) g/dL - Imaging US - kidney/bladder: report reviewed Assessment and Plan (1) Urethral stricture, postoperative Status: Acute Plan: Mr. Garcia almost certainly has a recurrent urethral stricture. However, he is emptying his bladder. His renal ultrasound is unremarkable, and a urine culture is negative. In view of this, he does not require immediate intervention. He was advised to follow up with Dr. Plasencia as an outpatient. Time with Patient: Less than 30
--- NOTE | 2016-12-14 09:13 | P.PN ---
Subjective Principal diagnosis: Atrial fibrillation This is a pleasant 61-year-old gentleman with a past medical history significant for morbid obesity, diabetes, hypertension, and dyslipidemia, was admitted to the emergency room because he was not feeling well. The patient history started about a week ago when he was experiencing some exertional dyspnea up on doing some work at home. The symptoms got worse over the next few days. Earlier today he went to the bathroom and obviously he fell on the floor and he was unable to get up because he was so weak. He did not experience any chest pain or discomfort and he did not lose his consciousness. The family brought the patient to the emergency room. In the ER the patient was found to have fever and also he was diagnosed with septic shock where he required vasopressors for brief period of time. We get involved in the care of the patient because he developed an A. fib with RVR. The patient is not aware of any prior cardiac history and there were seen a insurance sales specialist in the past. Currently the patient is in A. fib with uncontrolled heart rate. The blood pressure has been stable without any vasopressors. He was initiated on Cardizem. Beside that he was also started on heparin IV. On follow-up with the patient today, he is feeling slightly better. He continues to be in atrial fibrillation with slightly uncontrolled heart rates. He continues to be on Cardizem and drip as well as heparin drip. I am going to start him back on the beta melanie by mouth and he was taking at home labetalol. He seems to be retaining some fluid. He might need to be started on diuretics by tomorrow. Objective - Vital Signs Vital signs: Vital Signs Temp 99.5 F 12/14/16 08:00 Pulse 119 H 12/14/16 08:00 Resp 37 H 12/14/16 08:00 BP 179/85 12/14/16 08:00 Pulse Ox 97 12/14/16 08:00 Intake & Output 12/13/16 12/14/16 12/14/16 18:59 06:59 18:59 Intake Total 3292.9 2399.684 585 Output Total 600 1175 225 Balance 2692.9 1224.684 360 Weight 155 kg Intake: IV 1500 1125 75 Sodium Chloride 0.9% 1, 1500 1125 75 000 ml @ 125 mls/hr IV . Q8H [facility] Rx#:[id number] Intake, IV Titration 1152.9 674.684 510 Amount Azithromycin 500 mg In 250 Sodium Chloride 0.9% 250 ml @ 125 mls/hr IVPB DAILY [facility] Rx#:[id number] Diltiazem 125 mg In 35 60 10 Sodium Chloride 0.9% 100 ml @ 5 MG/HR 5 mls/hr IV .Q24H [facility] Rx#:[id number] Heparin Sodium,Porcine/ 167.9 552.184 D5w Pmx 25,000 unit In Dextrose/Water 1 500ml. bag @ 12.6 UNITS/KG/HR 38 .1 mls/hr IV .Q13H8M [facility] Rx#:[id number] Magnesium Sulfate-D5w Pmx 100 1 gm In Dextrose/Water 1 100ml.bag @ 100 mls/hr IVPB Q1H [facility] Rx#: [id number] Piperacillin-Tazobactam 3 100 62.5 .375 gm In Dextrose/Water 1 50ml.bag @ 12.5 mls/hr IVPB Q8HR [facility] Rx#: [id number] Vancomycin 2,250 mg In 500 500 Sodium Chloride 0.9% 500 ml @ 167 mls/hr IVPB Q24H [facility] Rx#:[id number] Oral 640 600 Output: Urine 600 1175 225 Post Void Residual 0 Other: Voiding Method Urinal Urinal # Voids 0 # Bowel Movements 0 0 - Constitutional General appearance: Present: mild distress, morbidly obese, no acute distress - Respiratory Respiratory: bilateral: rales - Cardiovascular Rhythm: irregularly irregular - Labs CBC & Chem 7: 12/14/16 04:04 12/14/16 04:04 Labs: Abnormal Lab Results - Last 24 Hours (Table) 12/13/16 12/13/16 12/13/16 Range/Units 12:11 16:21 17:48 RBC (4.30-5.90) m/uL Hgb (13.0-17.5) gm/dL Hct (39.0-53.0) % Plt Count (150-450) k/uL Lymphocytes # (1.0-4.8) k/uL APTT (22.0-30.0) sec Sodium 134 L (137-145) mmol/L Carbon Dioxide (22-30) mmol/L BUN 47 H (9-20) mg/dL Creatinine 2.48 H (0.66-1.25) mg/dL Glucose 355 H (74-99) mg/dL POC Glucose (mg/dL) 308 H 390 H (75-99) mg/dL Calcium 7.2 L (8.4-10.2) mg/dL Total Protein 5.0 L (6.3-8.2) g/dL Albumin 2.3 L (3.5-5.0) g/dL 12/13/16 12/14/16 12/14/16 Range/Units 21:07 04:04 04:04 RBC 4.16 L (4.30-5.90) m/uL Hgb 11.9 L (13.0-17.5) gm/dL Hct 37.1 L (39.0-53.0) % Plt Count 147 L (150-450) k/uL Lymphocytes # 0.8 L (1.0-4.8) k/uL APTT (22.0-30.0) sec Sodium (137-145) mmol/L Carbon Dioxide 21 L (22-30) mmol/L BUN 49 H (9-20) mg/dL Creatinine 2.69 H (0.66-1.25) mg/dL Glucose 332 H (74-99) mg/dL POC Glucose (mg/dL) 324 H (75-99) mg/dL Calcium 7.1 L (8.4-10.2) mg/dL Total Protein (6.3-8.2) g/dL Albumin (3.5-5.0) g/dL 12/14/16 12/14/16 Range/Units 04:04 07:25 RBC (4.30-5.90) m/uL Hgb (13.0-17.5) gm/dL Hct (39.0-53.0) % Plt Count (150-450) k/uL Lymphocytes # (1.0-4.8) k/uL APTT 34.0 H (22.0-30.0) sec Sodium (137-145) mmol/L Carbon Dioxide (22-30) mmol/L BUN (9-20) mg/dL Creatinine (0.66-1.25) mg/dL Glucose (74-99) mg/dL POC Glucose (mg/dL) 323 H (75-99) mg/dL Calcium (8.4-10.2) mg/dL Total Protein (6.3-8.2) g/dL Albumin (3.5-5.0) g/dL Assessment and Plan Plan: Assessment Septic shock A. fib with RVR Morbid obesity Acute renal failure Hypovolemia Plan Start the patient on beta melanie by mouth The patient was initiated on heparin IV we'll continue that Obtain an echocardiogram was Doppler Follow-up with the patient
[2016-12-14] MEDS: LABETALOL 100 MG TAB PO SCH ×2 (09:33→21:24)
[2016-12-14 10:53] VITALS: BMI 50.4
[2016-12-14 12:02] LABS: Glucose,Whole Blood 337 mg/dL (75-99)
--- NOTE | 2016-12-14 12:18 | ECHOF ---
Referral Reason:AFIB MEASUREMENTS -------- HEIGHT: 175.3 cm WEIGHT: 154.7 kg BP: 166/82 Ao Diam: 4.0 cm (2.0 - 3.7) AV Cusp: 2.5 cm (1.5 - 2.6) LA Diam: 3.4 cm (2.7 - 3.8) MV E Demetri: 0.68 m/s MV DecT: 174 ms MV A Demetri: 0.50 m/s MV E/A Ratio: 1.36 RAP: 5.00 mmHg RVSP: 9.42 mmHg FINDINGS -------- Sinus rhythm. This was a technically difficult study with suboptimal views. Limited Study The RV was not well visualized. The left atrium was not well visualized. The right atrium was not well visualized. 1.5mg of Definity was utilized for enhancement of images The aortic valve was not well visualized. The mitral valve was not well visualized. The tricuspid valve was not well visualized. The pulmonic valve was not well visualized. CONCLUSIONS -------- 1. Sinus rhythm. 2. The mitral valve was not well visualized. 3. The tricuspid valve was not well visualized. 4. The pulmonic valve was not well visualized. 5. This was a technically difficult study with suboptimal views. 6. Limited Study 7. Unable to comment on EF due to poor images with definity. 8. The RV was not well visualized. 9. The left atrium was not well visualized. 10. The right atrium was not well visualized. 11. 1.5mg of Definity was utilized for enhancement of images 12. The aortic valve was not well visualized. SCIENTIFIC PHOTOGRAPHER: Lara Wall RD
[2016-12-14] MEDS: ACETAMINOPHEN TAB 325 MG TAB PO PRN (12:46)
[2016-12-14 13:19] LABS: Calcium 7.4 mg/dL (8.4-10.2); Potassium 3.7 mmol/L (3.5-5.1)
[2016-12-14 14:09] LABS: ABG HCO3 21 mmol/L (21-25); ABG PCO2 38 mmHg (35-45); ABG PH 7.36 (7.35-7.45); ABG PO2 83 mmHg (83-108)
[2016-12-14 14:10] LABS: ABG Base Excess -0.4 mmol/L; ABG TCO2 22 mmol/L (19-24)
[2016-12-14 14:34] LABS: Hemoglobin A1C 11.1 % (4.2-6.1)
--- NOTE | 2016-12-14 14:45 | P.PN ---
Subjective Principal diagnosis: Acute septic shock obese 61-year-old male patient who weighs approximately 150 kg, came into the emergency department yesterday with generalized weakness, lethargy, fever and feeling sick in general. Immediately the patient was found to be in septic shock. The patient was hypotensive with diminished urine output. He is known to have urethral strictures and chronic urinary retention and previous history of urinary tract infections. As such a UA was done and the findings were quite abnormal and the urine itself was quite dirty and cloudy. At that point, the patient was started on IV fluids for aggressive fluid resuscitation. He got moved to the intensive care unit where he was placed on a combination of Zosyn and Zithromax. The patient was also placed on pressors briefly when he was on norepinephrine infusion and later on 6:30 AM the norepinephrine infusion was discontinued. Most recent blood pressure is in the 108 systolic. Urine output has been uncertain nontender the patient had difficulties in urination. He claims it has been difficult for him to insert a Davalos catheter because of urinary stricture. He refused a Davalos catheter. A urology consultation has been initiated. The patient also has BPH. Meanwhile, the patient was noted to have significantly elevated blood sugar with his blood sugar was in the 700s range. He was started on insulin drip which ultimately got discontinued. Patient is known to have diabetes mellitus and hypertension. He is morbidly obese. Earlier this morning he went into atrial fibrillation with a heart rate of 118. No chest pain. No shortness of breath. Minimal cough. No open wounds or sores. No change in mental status. He is complaining of a neck pain and he has had multiple falls. Note that the CAT scan of the brain and spine was done in the emergency department at time of arrival and it showed no acute intracranial hemorrhage or midline shift. There was mild ventricular prominence. There is evidence of old lacunar infarct in the right basal ganglia. Cervical spine showed moderate degree of multilevel degenerative changes. Note that his lactic acid level has dropped from 3.4 at baseline down to 1.8. Patient was reevaluated today on 12/14/2016, he is off norepinephrine, responded well initially to fluids along with norepinephrine, and he remains hemodynamically stable at this point. However intermittently he seems to be a bit confused, but he is running a temp of 101.5 earlier today. Blood cultures came back positive for strep agalactiae group B. Urine cultures are pending. Patient is on antibiotics in the form of Zosyn and vancomycin. Infectious disease consultation is pending. Patient is in A. fib with RVR, and he is hypertensive, hence I have recommended increasing the Cardizem drip to 10 mg per hour. IV fluid is down to 50 mL/h, patient did receive significant amount of fluid boluses yesterday up on presentation. ABG on 36% FiO2 showed a pO2 of 83 pCO2 of 38 pH of 7.36. Renal profile is a bit improved and creatinine is down to 2.50 from 2.69 yesterday. Lactic acid is down to 1.8 set of 3.4 on admission. Patient seems to be comfortable, in no distress. Objective - Vital Signs Vital signs: Vital Signs Temp 101.7 F H 12/14/16 12:00 Pulse 90 12/14/16 14:00 Resp 22 12/14/16 14:00 BP 141/77 12/14/16 14:00 Pulse Ox 95 12/14/16 14:00 Intake & Output 12/13/16 12/14/16 12/14/16 18:59 06:59 18:59 Intake Total 3292.9 2399.684 1434.843 Output Total 600 1175 725 Balance 2692.9 1224.684 709.843 Weight 155 kg 155 kg Intake: IV 1500 1125 375 Sodium Chloride 0.9% 1, 1500 1125 375 000 ml @ 50 mls/hr IV . Q20H [facility] Rx#:[id number] Intake, IV Titration 1152.9 674.684 819.843 Amount Azithromycin 500 mg In 250 Sodium Chloride 0.9% 250 ml @ 125 mls/hr IVPB DAILY [facility] Rx#:[id number] Diltiazem 125 mg In 35 60 81.083 Sodium Chloride 0.9% 100 ml @ 10 MG/HR 10 mls/hr IV .[id number] [facility] Rx#: [id number] Heparin Sodium,Porcine/ 167.9 552.184 238.76 D5w Pmx 25,000 unit In Dextrose/Water 1 500ml. bag @ 15.6 UNITS/KG/HR 47 .17 mls/hr IV .[id number] [facility] Rx#:[id number] Magnesium Sulfate-D5w Pmx 100 1 gm In Dextrose/Water 1 100ml.bag @ 100 mls/hr IVPB Q1H [facility] Rx#: [id number] Piperacillin-Tazobactam 3 100 62.5 .375 gm In Dextrose/Water 1 50ml.bag @ 12.5 mls/hr IVPB Q8HR [facility] Rx#: [id number] Vancomycin 2,250 mg In 500 500 Sodium Chloride 0.9% 500 ml @ 167 mls/hr IVPB Q24H [facility] Rx#:[id number] Oral 640 600 240 Output: Urine 600 1175 725 Post Void Residual 0 Other: Voiding Method Urinal Urinal Urinal # Voids 0 # Bowel Movements 0 0 - Exam Morbid obese, calm and comfortable, not in acute distress. His main complaint is neck pain. His neck is hurting and for that reason the patient is trying to get himself comfortable and tries not to move his neck because of pain. The upper cervical spine is a bit tender to palpation. The neck is also painful to passive range of motion.Head exam was generally normal. There was no scleral icterus or corneal arcus. Mucous membranes were moist. No JVDs. No goiter or neck masses. The patient has significant crowding of the posterior oropharynx. Lung sounds are diminished in the lung bases bilaterally. There is no wheezes or rhonchi. Heart sounds are irregular and tachycardic, positive S1-S2 , no significant murmurs appreciated. Abdomen is obese soft nontender. Organs cannot be palpated. No direct tenderness, no rebound tenderness, no guarding. Extremities trace edema there is no cyanosis or clubbing and pulses are diminished bilaterally. Neurologically the patient is awake and alert. No focal neurological deficits. - Labs CBC & Chem 7: 12/14/16 04:04 12/14/16 12:50 Labs: Abnormal Lab Results - Last 24 Hours (Table) 12/13/16 12/13/16 12/13/16 Range/Units 16:21 17:48 21:07 RBC (4.30-5.90) m/uL Hgb (13.0-17.5) gm/dL Hct (39.0-53.0) % Plt Count (150-450) k/uL Lymphocytes # (1.0-4.8) k/uL APTT (22.0-30.0) sec Sodium 134 L (137-145) mmol/L Chloride (98-107) mmol/L Carbon Dioxide (22-30) mmol/L BUN 47 H (9-20) mg/dL Creatinine 2.48 H (0.66-1.25) mg/dL Glucose 355 H (74-99) mg/dL POC Glucose (mg/dL) 390 H 324 H (75-99) mg/dL Calcium 7.2 L (8.4-10.2) mg/dL Total Protein 5.0 L (6.3-8.2) g/dL Albumin 2.3 L (3.5-5.0) g/dL 12/14/16 12/14/16 12/14/16 Range/Units 04:04 04:04 04:04 RBC 4.16 L (4.30-5.90) m/uL Hgb 11.9 L (13.0-17.5) gm/dL Hct 37.1 L (39.0-53.0) % Plt Count 147 L (150-450) k/uL Lymphocytes # 0.8 L (1.0-4.8) k/uL APTT 34.0 H (22.0-30.0) sec Sodium (137-145) mmol/L Chloride (98-107) mmol/L Carbon Dioxide 21 L (22-30) mmol/L BUN 49 H (9-20) mg/dL Creatinine 2.69 H (0.66-1.25) mg/dL Glucose 332 H (74-99) mg/dL POC Glucose (mg/dL) (75-99) mg/dL Calcium 7.1 L (8.4-10.2) mg/dL Total Protein (6.3-8.2) g/dL Albumin (3.5-5.0) g/dL 12/14/16 12/14/16 12/14/16 Range/Units 07:25 12:00 12:50 RBC (4.30-5.90) m/uL Hgb (13.0-17.5) gm/dL Hct (39.0-53.0) % Plt Count (150-450) k/uL Lymphocytes # (1.0-4.8) k/uL APTT (22.0-30.0) sec Sodium (137-145) mmol/L Chloride 109 H (98-107) mmol/L Carbon Dioxide 20 L (22-30) mmol/L BUN 50 H (9-20) mg/dL Creatinine 2.50 H (0.66-1.25) mg/dL Glucose 314 H (74-99) mg/dL POC Glucose (mg/dL) 323 H 337 H (75-99) mg/dL Calcium 7.4 L (8.4-10.2) mg/dL Total Protein (6.3-8.2) g/dL Albumin (3.5-5.0) g/dL Assessment and Plan Plan: 1 acute septic shock/intravascular volume depletion/dehydration. Source of the sepsis is not clear, possibly urine in nature, blood cultures are positive for strep agalactiae group B. 2 profound hypovolemia 3 diabetes mellitus with severe hyperglycemia, no signs of DKA 4 acute kidney injury secondary to above 5 chronic obstructive uropathy secondary to BPH and urethral strictures 6 new onset atrial fibrillation with rapid ventricular response 7 lactic acidosis, improving 8 morbid obesity 9 chronic obstructive sleep apnea. 10 neck pain/muscle spasm 11 Lacunar infarct of the brain, old and chronic Recommendation: Continue present antibiotics, continue Cardizem drip at 10 mg per hour. Infectious disease consultation is pending. Continue insulin for sugar control. Echocardiogram report was reviewed, suboptimal because of the patient's size. Keep in ICU, will continue to follow. Critical care time is 32 minutes. Time with Patient: Greater than 30
[2016-12-14 16:52] LABS: Glucose,Whole Blood 275 mg/dL (75-99)
--- NOTE | 2016-12-14 17:44 | PN ---
Patient has minimal improvement regarding infection. Patient is still having high-grade fevers. Infectious Disease was consulted. Patient is wheezing quite a bit. Patient is quite sick, off Levophed drip. Continues to be on Cardizem drip. Echocardiogram was inconclusive because of his obesity; not even able to assess the ejection fraction. Repeat blood cultures are pending. Patient will be continued on Zosyn. REVIEW OF SYSTEMS: CARDIOVASCULAR: No chest pain, no orthopnea, no PND, no palpitations. PULMONARY: Continued shortness of breath. Patient is still not feeling well. GASTROINTESTINAL: No diarrhea, nausea or vomiting. No abdominal pain. Normoactive bowel sounds. NEUROLOGIC: No headaches, no weakness, no numbness. Medications were reviewed. PHYSICAL EXAMINATION: VITAL SIGNS: Temperature 99.1, pulse of 90, respiratory rate of 22. Blood pressure is 141/77. Saturating at 95% on 5 L of oxygen by nasal cannula. GENERAL: Patient is in significant respiratory distress. Not using accessory muscles of breathing. HEENT: Pupils are round and equally reacting to light. EOMI. No scleral icterus. No conjunctival pallor. Normocephalic, atraumatic. No pharyngeal erythema. No thyromegaly. CARDIOVASCULAR: S1 and S2 present. No murmurs, rubs, or gallops. PULMONARY: Significant expiratory wheezing. No crackles were appreciated. ABDOMEN: Soft, nontender, nondistended, normoactive bowel sounds. No palpable organomegaly. MUSCULOSKELETAL: No joint swelling or deformity. EXTREMITIES: No cyanosis, clubbing, or pedal edema. NEUROLOGICAL: Gross neurological examination did not reveal any focal deficits. SKIN: No rashes. LABORATORY DATA: CBC abnormal for elevated BUN and creatinine of 50 and 2.5. Chloride of 109. Blood sugar is still elevated. I am up-titrating the insulin. ASSESSMENT AND PLAN: 1. Septic shock. Shock improved. Patient continues to be bacteremic, possible source being lung. Continue Zosyn. Discontinue vancomycin. Consulted Infectious Disease. Repeat blood cultures are pending. 2. Possible chronic obstructive pulmonary disease with acute exacerbation. Patient is not on any systemic steroids. Continue with inhalational steroids and albuterol ipratropium. Rest of the management as per Pulmonary. 3. Severe intravascular volume depletion leading to acute renal failure. Renal failure did not improve. Patient probably has chronic kidney disease, stage IV, from diabetic nephropathy. 4. Pseudohyponatremia from hyperglycemia, resolved. 5. Atrial fibrillation. Continue with Cardizem drip. Echocardiogram inconclusive. Patient is being continued on heparin drip as well. 6. Type 2 diabetes mellitus with uncontrolled blood sugars. Up-titrating the insulin. 7. Lactic acidosis, improved, secondary to septic shock. 8. Elevated troponin secondary to sepsis. 9. Morbid obesity. 10. Possible sleep apnea.
[2016-12-14] MEDS: oxyCODONE-APAP 5-325MG 1 EACH TAB PO PRN (20:58)
[2016-12-14] MEDS ORDERED: INSULIN GLARGINE 100 UNIT/ML 10 ML VIAL SQ SCH (21:00)
[2016-12-14 21:04] LABS: Glucose,Whole Blood 176 mg/dL (75-99)
[2016-12-14] MEDS: ALPRAZolam 0.25 MG TAB PO PRN (22:17)
[2016-12-15] MEDS: HEPARIN SODIUM,PORCINE/D5W PMX 25,000 UNIT in DEXTROSE/WATER 1 500ML.BAG IV SCH (00:59)
[2016-12-15] MEDS: MORPHINE SULFATE 4 MG/ML SYRINGE IVP PRN (01:48)
[2016-12-15] MEDS: DILTIAZEM 125 MG in SODIUM CHLORIDE 0.9% 100 ML IV SCH ×2 (04:21→16:23)
[2016-12-15 05:02] LABS: Calcium 7.5 mg/dL (8.4-10.2); Magnesium 1.8 mg/dL (1.6-2.3); Phosphorous 4.4 mg/dL (2.5-4.5); Potassium 3.8 mmol/L (3.5-5.1)
[2016-12-15 05:07] LABS: Basophils % (A) 0 %; CH 28.8; CHCM 32.6; Eosinophils # (A) 0.1 k/uL (0-0.7); Eosinophils % (A) 1 %; HCT 36.7 % (39.0-53.0); HDW 3.01; HGB 12.1 gm/dL (13.0-17.5); Luc # (Auto) 0.35; Luc % (Auto) 3; Lymphocytes % (A) 9 %; MCH 29.2 pg (25.0-35.0); MCV 88.7 fL (80.0-100.0); Mean Platelet Volume 8.9; Monocytes # (A) 0.6 k/uL (0-1.0); Monocytes % (A) 6 %; Neutrophils # (A) 8.5 k/uL (1.3-7.7); Neutrophils % (A) 80 %; RBC 4.14 m/uL (4.30-5.90); RDW 13.7 % (11.5-15.5); WBC 10.6 k/uL (3.8-10.6); WBC (Perox) 9.93
[2016-12-15] MEDS ORDERED: Potassium Replacement Protocol 1 EACH MISC MISCELLANE PRN (06:08)
[2016-12-15] MEDS ORDERED: POTASSIUM CHLORIDE ER 20 MEQ TAB.ER PO SCH (07:00)
[2016-12-15 07:26] LABS: INR 1.1 (<1.1); Partial Thromboplastin Time 35.7 sec (22.0-30.0); Prothrombin Time 10.7 sec (9.0-12.0)
--- NOTE | 2016-12-15 07:44 | XR ---
EXAMINATION TYPE: XR chest 1V DATE OF EXAM: 12/15/2016 6:31 AM CLINICAL HISTORY: Difficulty breathing and pneumonia progress study. TECHNIQUE: Single AP portable upright view of the chest is obtained. COMPARISON: Chest x-ray from one day earlier FINDINGS: There is cardiomegaly with ectatic thoracic aorta identified. There is chronic parenchymal change without suspicious new focal airspace opacity, pleural effusion, or pneumothorax seen. Osseou s structures are intact. IMPRESSION: Overall stable findings, cardiomegaly without suspicious acute pulmonary process.
[2016-12-15] MEDS: HEPARIN SODIUM,PORCINE 5,000 UNIT/ML 1 ML VIAL IV PRN (07:54)
[2016-12-15] MEDS: IPRATROPIUM-ALBUTEROL 3 ML NEB INHALATION SCH ×4 (08:50→20:36)
[2016-12-15] MEDS: INSULIN LISPRO (humaLOG) 300 UNIT/3 ML VIAL SQ SCH ×7 (08:50→20:33)
[2016-12-15] MEDS: PIPERACILLIN-TAZOBACTAM 3.375 GM in DEXTROSE/WATER 1 50ML.BAG IVPB SCH (08:51)
--- NOTE | 2016-12-15 08:51 | P.PN ---
Subjective Principal diagnosis: Atrial fibrillation This is a pleasant 61-year-old gentleman with a past medical history significant for morbid obesity, diabetes, hypertension, and dyslipidemia, was admitted to the emergency room because he was not feeling well. The patient history started about a week ago when he was experiencing some exertional dyspnea up on doing some work at home. The symptoms got worse over the next few days. Earlier today he went to the bathroom and obviously he fell on the floor and he was unable to get up because he was so weak. He did not experience any chest pain or discomfort and he did not lose his consciousness. The family brought the patient to the emergency room. In the ER the patient was found to have fever and also he was diagnosed with septic shock where he required vasopressors for brief period of time. We get involved in the care of the patient because he developed an A. fib with RVR. 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 Currently the patient is in A. fib with controlled heart rate. The blood pressure seems to be better controlled after I started the patient back on labetalol by mouth yesterday. He is on heparin IV which I am going to discontinue and start him on oral anticoagulation with Eliquis. Beside that the patient seems to be positive for fluid and I am going to start the patient on Lasix at 40 mg IV daily with close monitoring the kidney function and electrolytes. An echocardiogram was performed and it was difficult to assess ejection fraction. Objective - Vital Signs Vital signs: Vital Signs Temp 100.1 F H 12/15/16 08:00 Pulse 98 12/15/16 08:00 Resp 38 H 12/15/16 08:00 BP 149/81 12/15/16 08:00 Pulse Ox 97 12/15/16 08:00 Intake & Output 12/14/16 12/15/16 12/15/16 18:59 06:59 18:59 Intake Total 5552.257 9333.000 488.993 Output Total 1150 900 350 Balance 534.843 175.000 138.993 Weight 155 kg 157.7 kg Intake: IV 575 400 100 Sodium Chloride 0.9% 1, 575 400 100 000 ml @ 50 mls/hr IV . Q20H [facility] Rx#:[id number] Intake, IV Titration 869.843 675.000 388.993 Amount Diltiazem 125 mg In 81.083 125.000 Sodium Chloride 0.9% 100 ml @ 10 MG/HR 10 mls/hr IV .[id number] [facility] Rx#: [id number] Heparin Sodium,Porcine/ 238.76 500.00 388.993 D5w Pmx 25,000 unit In Dextrose/Water 1 500ml. bag @ 15.6 UNITS/KG/HR 47 .17 mls/hr IV .[id number] [facility] Rx#:[id number] Piperacillin-Tazobactam 3 50 50 .375 gm In Dextrose/Water 1 50ml.bag @ 12.5 mls/hr IVPB Q8HR [facility] Rx#: [id number] Vancomycin 2,250 mg In 500 Sodium Chloride 0.9% 500 ml @ 167 mls/hr IVPB Q24H [facility] Rx#:[id number] Oral 240 Output: Urine 1150 900 350 Other: Voiding Method Urinal Urinal # Bowel Movements 0 - Constitutional General appearance: Present: no acute distress - Respiratory Respiratory: bilateral: rhonchi, wheezing - Cardiovascular Rhythm: irregularly irregular - Labs CBC & Chem 7: 12/15/16 04:06 12/15/16 04:06 Labs: Abnormal Lab Results - Last 24 Hours (Table) 12/13/16 12/14/16 12/14/16 Range/Units 04:49 12:00 12:50 RBC (4.30-5.90) m/uL Hgb (13.0-17.5) gm/dL Hct (39.0-53.0) % Neutrophils # (1.3-7.7) k/uL APTT (22.0-30.0) sec Chloride 109 H (98-107) mmol/L Carbon Dioxide 20 L (22-30) mmol/L BUN 50 H (9-20) mg/dL Creatinine 2.50 H (0.66-1.25) mg/dL Glucose 314 H (74-99) mg/dL POC Glucose (mg/dL) 337 H (75-99) mg/dL Hemoglobin A1c 11.1 H (4.2-6.1) % Calcium 7.4 L (8.4-10.2) mg/dL 12/14/16 12/14/16 12/14/16 Range/Units 16:50 20:39 21:02 RBC (4.30-5.90) m/uL Hgb (13.0-17.5) gm/dL Hct (39.0-53.0) % Neutrophils # (1.3-7.7) k/uL APTT 36.3 H (22.0-30.0) sec Chloride (98-107) mmol/L Carbon Dioxide (22-30) mmol/L BUN (9-20) mg/dL Creatinine (0.66-1.25) mg/dL Glucose (74-99) mg/dL POC Glucose (mg/dL) 275 H 176 H (75-99) mg/dL Hemoglobin A1c (4.2-6.1) % Calcium (8.4-10.2) mg/dL 12/15/16 12/15/16 12/15/16 Range/Units 04:06 04:06 07:02 RBC 4.14 L (4.30-5.90) m/uL Hgb 12.1 L (13.0-17.5) gm/dL Hct 36.7 L (39.0-53.0) % Neutrophils # 8.5 H (1.3-7.7) k/uL APTT 35.7 H (22.0-30.0) sec Chloride 109 H (98-107) mmol/L Carbon Dioxide 21 L (22-30) mmol/L BUN 49 H (9-20) mg/dL Creatinine 2.50 H (0.66-1.25) mg/dL Glucose 251 H (74-99) mg/dL POC Glucose (mg/dL) (75-99) mg/dL Hemoglobin A1c (4.2-6.1) % Calcium 7.5 L (8.4-10.2) mg/dL Microbiology - Last 24 Hours (Table) 12/14/16 04:04 Blood Culture - Preliminary Blood No Growth after 24 hours 12/13/16 23:08 Blood Culture - Preliminary Blood No Growth after 24 hours Assessment and Plan Plan: Assessment Septic shock A. fib with RVR Morbid obesity Acute renal failure Hypovolemia Plan #1 add Lasix #2 DC heparin and start oral anticoagulation #3 follow-up with the patient
[2016-12-15] MEDS: LABETALOL 100 MG TAB PO SCH ×2 (08:52→09:01)
[2016-12-15] MEDS: FAMOTIDINE 20 MG TAB PO SCH (08:52)
[2016-12-15] MEDS: ATORVASTATIN 20 MG TAB PO SCH (08:52)
[2016-12-15] MEDS: SYMBICORT 160-4.5 MCG INHALER INHALATION SCH ×2 (08:55→20:36)
[2016-12-15] MEDS ORDERED: LABETALOL 100 MG TAB PO ONE (08:57)
[2016-12-15] MEDS: APIXABAN 2.5 MG TABLET PO SCH ×2 (09:23→20:30)
[2016-12-15] MEDS: FUROSEMIDE 10 MG/ML 4 ML VIAL IV SCH (09:25)
[2016-12-15] MEDS ORDERED: IV VANCOMYCIN PER PHARMACY 1 EACH MISC MISCELLANE PRN (10:06)
[2016-12-15] MEDS ORDERED: VANCOMYCIN 2,250 MG in SODIUM CHLORIDE 0.9% 500 ML IVPB SCH (10:45)
[2016-12-15 11:55] LABS: Glucose,Whole Blood 339 mg/dL (75-99)
[2016-12-15 11:55] LABS: Glucose,Whole Blood 335 mg/dL (75-99)
[2016-12-15] MEDS ORDERED: CLINDAMYCIN 900 MG in DEXTROSE 5% IN WATER 50 ML IVPB SCH ×2 (12:00)
[2016-12-15] MEDS ORDERED: ceFAZolin 2 GM in SODIUM CHLORIDE 0.9% 100 ML IVPB SCH (13:00)
--- NOTE | 2016-12-15 13:15 | CT ---
EXAMINATION TYPE: CT soft tissue neck wo con DATE OF EXAM: 12/15/2016 12:38 PM COMPARISON: Correlation CT cervical spine 12/12/2016 HISTORY: 61-year-old male complains neck pain post fall 3 days ago. Evaluate for neck cellulitis, abs cess. TECHNIQUE: Contiguous axial scanning of the soft tissues of the neck without IV contrast. Coronal and sagittal reconstructions performed. CT DLP: 1396 mGycm Automated exposure control for dose reduction was used. FINDINGS: Visualized intracranial structures show no gross abnormal body. Orbits and globes, paranasal sinuses, and mastoid air cells appear clear. Nasopharynx appears clear. In the oropharynx, there is slight asymmetric left lingual tonsillar hyper trophy noted. Prominent motion artifact is present and additional degradation of image quality due to patient body habitus. Incidental 3.6 x 1.9 cm fatty lesion of the left paramedian posterior paraspinal musculature opposite the C4 level at the mid neck level. There is thickening of the prevertebral soft tissues up to 1.4 cm anterior to C2 and up to 1.0 cm ant erior to C4-C5. There is some edema in the retropharyngeal space, axial image 44 for example. The parotid and submandibular glands appear grossly unremarkable. Thyroid gland not well evaluated du e to motion and normal areas. Scattered cervical lymph nodes are present but remain less than 1 cm. There is prominent motion artif act limiting evaluation. IMPRESSION: THERE IS RETROPHARYNGEAL EDEMA THICKENING THE PREVERTEBRAL SPACE ESPECIALLY ALONG THE UPPER TO MID CE RVICAL SPINE. CORRELATE FOR RETROPHARYNGEAL CELLULITIS. ASSESSMENT FOR ABSCESS LIMITED ON NONCONTRAST CT.
[2016-12-15 15:11] LABS: INR 1.1 (<1.1); Partial Thromboplastin Time 24.1 sec (22.0-30.0); Prothrombin Time 10.7 sec (9.0-12.0)
--- NOTE | 2016-12-15 16:03 | P.PN ---
Subjective Principal diagnosis: Acute septic shock obese 61-year-old male patient who weighs approximately 150 kg, came into the emergency department yesterday with generalized weakness, lethargy, fever and feeling sick in general. Immediately the patient was found to be in septic shock. The patient was hypotensive with diminished urine output. He is known to have urethral strictures and chronic urinary retention and previous history of urinary tract infections. As such a UA was done and the findings were quite abnormal and the urine itself was quite dirty and cloudy. At that point, the patient was started on IV fluids for aggressive fluid resuscitation. He got moved to the intensive care unit where he was placed on a combination of Zosyn and Zithromax. The patient was also placed on pressors briefly when he was on norepinephrine infusion and later on 6:30 AM the norepinephrine infusion was discontinued. Most recent blood pressure is in the 108 systolic. Urine output has been uncertain nontender the patient had difficulties in urination. He claims it has been difficult for him to insert a Davalos catheter because of urinary stricture. He refused a Davalos catheter. A urology consultation has been initiated. The patient also has BPH. Meanwhile, the patient was noted to have significantly elevated blood sugar with his blood sugar was in the 700s range. He was started on insulin drip which ultimately got discontinued. Patient is known to have diabetes mellitus and hypertension. He is morbidly obese. Earlier this morning he went into atrial fibrillation with a heart rate of 118. No chest pain. No shortness of breath. Minimal cough. No open wounds or sores. No change in mental status. He is complaining of a neck pain and he has had multiple falls. Note that the CAT scan of the brain and spine was done in the emergency department at time of arrival and it showed no acute intracranial hemorrhage or midline shift. There was mild ventricular prominence. There is evidence of old lacunar infarct in the right basal ganglia. Cervical spine showed moderate degree of multilevel degenerative changes. Note that his lactic acid level has dropped from 3.4 at baseline down to 1.8. Patient was reevaluated today on 12/14/2016, he is off norepinephrine, responded well initially to fluids along with norepinephrine, and he remains hemodynamically stable at this point. However intermittently he seems to be a bit confused, but he is running a temp of 101.5 earlier today. Blood cultures came back positive for strep agalactiae group B. Urine cultures are pending. Patient is on antibiotics in the form of Zosyn and vancomycin. Infectious disease consultation is pending. Patient is in A. fib with RVR, and he is hypertensive, hence I have recommended increasing the Cardizem drip to 10 mg per hour. IV fluid is down to 50 mL/h, patient did receive significant amount of fluid boluses yesterday up on presentation. ABG on 36% FiO2 showed a pO2 of 83 pCO2 of 38 pH of 7.36. Renal profile is a bit improved and creatinine is down to 2.50 from 2.69 yesterday. Lactic acid is down to 1.8 set of 3.4 on admission. Patient seems to be comfortable, in no distress. On 12/15/2016, patient remains off norepinephrine, hemodynamically stable, and I discussed his condition with the infectious disease specialist on the case, he believes that the source of infection could be a soft tissue, and he is raising the possibility of soft tissue of the neck, patient presented with neck pain, and the patient will have a CT of the head and neck today. Follow-up blood cultures after 12/12 remain negative. However blood cultures from 12/12 were all positive for strep agalactiae group B. Urine culture is nondiagnostic, it showed mostly skin madhu. Blood pressure remains elevated. Patient is now on oral labetalol, atrial fibrillation is controlled. Heparin was switched to eliquis. Patient seems to be short of breath, however the patient denies being short of breath, and he told me today that he is normally like this. Last ABG was relatively unremarkable. Patient is receiving diuretics as per cardiology on the case. Objective - Vital Signs Vital signs: Vital Signs Temp 100 F H 12/15/16 12:00 Pulse 115 H 12/15/16 15:00 Resp 33 H 12/15/16 15:36 BP 199/99 12/15/16 15:00 Pulse Ox 96 12/15/16 15:00 Intake & Output 12/14/16 12/15/16 12/15/16 18:59 06:59 18:59 Intake Total 4071.461 4496.000 738.993 Output Total 7657 755 5279 Balance 534.843 175.000 -1186.007 Weight 155 kg 157.7 kg Intake: IV 575 400 300 Sodium Chloride 0.9% 1, 575 400 300 000 ml @ 20 mls/hr IV . Q24H [facility] Rx#:[id number] Intake, IV Titration 869.843 675.000 438.993 Amount Diltiazem 125 mg In 81.083 125.000 Sodium Chloride 0.9% 100 ml @ 10 MG/HR 10 mls/hr IV .[id number] [facility]THE[facility] Rx#: [id number] Heparin Sodium,Porcine/ 238.76 500.00 388.993 D5w Pmx 25,000 unit In Dextrose/Water 1 500ml. bag @ 15.6 UNITS/KG/HR 47 .17 mls/hr IV .[id number] ALTHE[facility] Rx#:[id number] Piperacillin-Tazobactam 3 50 50 50 .375 gm In Dextrose/Water 1 50ml.bag @ 12.5 mls/hr IVPB Q8HR [facility] Rx#: [id number] Vancomycin 2,250 mg In 500 Sodium Chloride 0.9% 500 ml @ 167 mls/hr IVPB Q24H [facility] Rx#:[id number] Oral 240 Output: Urine 0200 365 4057 Other: Voiding Method Urinal Urinal Urinal # Voids 0 # Bowel Movements 0 0 - Exam Morbid obese, calm and comfortable, not in acute distress. His main complaint is neck pain. His neck is hurting and for that reason the patient is trying to get himself comfortable and tries not to move his neck because of pain. The upper cervical spine is a bit tender to palpation. The neck is also painful to passive range of motion.Head exam was generally normal. There was no scleral icterus or corneal arcus. Mucous membranes were moist. No JVDs. No goiter or neck masses. The patient has significant crowding of the posterior oropharynx. Lung sounds are diminished in the lung bases bilaterally. There is no wheezes or rhonchi. Heart sounds are irregular and tachycardic, positive S1-S2 , no significant murmurs appreciated. Abdomen is obese soft nontender. Organs cannot be palpated. No direct tenderness, no rebound tenderness, no guarding. Extremities trace edema there is no cyanosis or clubbing and pulses are diminished bilaterally. Neurologically the patient is awake and alert. No focal neurological deficits. - Labs CBC & Chem 7: 12/15/16 04:06 12/15/16 04:06 Labs: Abnormal Lab Results - Last 24 Hours (Table) 12/14/16 12/14/16 12/14/16 Range/Units 16:50 20:39 21:02 RBC (4.30-5.90) m/uL Hgb (13.0-17.5) gm/dL Hct (39.0-53.0) % Neutrophils # (1.3-7.7) k/uL APTT 36.3 H (22.0-30.0) sec Chloride (98-107) mmol/L Carbon Dioxide (22-30) mmol/L BUN (9-20) mg/dL Creatinine (0.66-1.25) mg/dL Glucose (74-99) mg/dL POC Glucose (mg/dL) 275 H 176 H (75-99) mg/dL Calcium (8.4-10.2) mg/dL Creatine Kinase (55-170) U/L 12/15/16 12/15/16 12/15/16 Range/Units 04:06 04:06 04:06 RBC 4.14 L (4.30-5.90) m/uL Hgb 12.1 L (13.0-17.5) gm/dL Hct 36.7 L (39.0-53.0) % Neutrophils # 8.5 H (1.3-7.7) k/uL APTT (22.0-30.0) sec Chloride 109 H (98-107) mmol/L Carbon Dioxide 21 L (22-30) mmol/L BUN 49 H (9-20) mg/dL Creatinine 2.50 H (0.66-1.25) mg/dL Glucose 251 H (74-99) mg/dL POC Glucose (mg/dL) (75-99) mg/dL Calcium 7.5 L (8.4-10.2) mg/dL Creatine Kinase 474 H (55-170) U/L 12/15/16 12/15/16 12/15/16 Range/Units 07:02 11:33 11:35 RBC (4.30-5.90) m/uL Hgb (13.0-17.5) gm/dL Hct (39.0-53.0) % Neutrophils # (1.3-7.7) k/uL APTT 35.7 H (22.0-30.0) sec Chloride (98-107) mmol/L Carbon Dioxide (22-30) mmol/L BUN (9-20) mg/dL Creatinine (0.66-1.25) mg/dL Glucose (74-99) mg/dL POC Glucose (mg/dL) 339 H 335 H (75-99) mg/dL Calcium (8.4-10.2) mg/dL Creatine Kinase (55-170) U/L Microbiology - Last 24 Hours (Table) 12/14/16 04:04 Blood Culture - Preliminary Blood No Growth after 24 hours 12/13/16 23:08 Blood Culture - Preliminary Blood No Growth after 24 hours Assessment and Plan Plan: 1 acute septic shock/intravascular volume depletion/dehydration. Source of the sepsis is not clear, CT of the neck report was reviewed, this was ordered by the infectious disease specialist on the case., May consider ENT referral for evaluation of retropharyngeal area which was described as abnormal on the CT of the neck. blood cultures are positive for strep agalactiae group B. 2 profound hypovolemia 3 diabetes mellitus with severe hyperglycemia, no signs of DKA 4 acute kidney injury secondary to above 5 chronic obstructive uropathy secondary to BPH and urethral strictures 6 new onset atrial fibrillation with rapid ventricular response 7 lactic acidosis, improving 8 morbid obesity 9 chronic obstructive sleep apnea. 10 neck pain/muscle spasm 11 Lacunar infarct of the brain, old and chronic Recommendation: Continue present antibiotics, patient is presently on Zosyn and vancomycin. A sitter ENT referral, patient is to be kept in the intensive care unit, will continue to follow closely. Time with Patient: Less than 30
[2016-12-15] MEDS: predniSONE 20 MG TAB PO SCH (16:23)
[2016-12-15] MEDS: AMPICILLIN-SULBACTAM 3 GM in SODIUM CHLORIDE 0.9% 100 ML IVPB SCH (16:24)
[2016-12-15 16:46] LABS: Glucose,Whole Blood 242 mg/dL (75-99)
--- NOTE | 2016-12-15 17:06 | P.OP ---
Date of Procedure: 12/15/16 Preoperative Diagnosis: Fever, CT findings of nasopharyngeal edema, rule out abscess Postoperative Diagnosis: Same Procedure(s) Performed: Flexible nasofrontal laryngoscopy Anesthesia: none Surgeon: Kyle Caro Pathology: none sent Condition: stable Disposition: PACU Indications for Procedure: This patient has constitutional symptoms of fever chills and general malaise with some shortness of breath and exacerbation of his asthma. Source of his infection is being investigated. Patient had a CAT scan done demonstrating some nasal pharyngeal inflammation and abscess and her cellulitis was a consideration. Operative Findings: This patient has some dryness to the nasopharynx oropharynx and hypopharynx. There is an adenoidectomy scar and tonsils are missing area does not evidence of any adenoid tissue. The nasopharynx is some crusting and dryness is no evidence of a nasal pharyngitis or retropharyngeal abscess. The epiglottis is dry crusting but there is no thickening to the epiglottis. Vocal cords are working well. There is no evidence of infection of the nasopharynx oropharynx or hypopharynx. Again it adenoidectomy scar is noticing that may be what was seen by the radiologist. There is a retropharyngeal fat pad noted from his obesity. Description of Procedure: This patient had a NF type GP nasopharyngoscope inserted into the patient's nose with care to avoid any trauma to the lips teeth gums and tongue. We entered the right nares went into the nasopharynx and adenoidectomy scar was noted large amount of dryness and crusting was noted. There is no evidence of any nasopharyngeal or retropharyngeal abscess or cellulitis there was some generalized crusting and dryness. Epiglottis was erythematous but no thickening was noted. Vocal cords worked well. Lateral pharynx base of tongue retropharynx all appeared to be unremarkable other than some xerostomia crusting scabbing. There is NO evidence of a retropharyngeal cellulitis or evidence of a retropharyngeal abscess.
--- NOTE | 2016-12-15 17:14 | P.GSCN ---
History of Present Illness Consult date: 12/15/16 Reason for Consult: Infection rule out head and neck etiology rule out retropharyngeal cellulitis or abscess, Requesting physician: Sandee Cardoza History of present illness: This is a 61-year-old white obese male admitted. Over the last week this patient has developed worsening constitutional symptoms of fever chills and shortness of breath. He was admitted and treated with appropriate antibiotic therapy and infectious disease has been counseled to it. Aggressive antibiotic therapy has been prescribed. A CAT scan was performed of the neck demonstrating some irregularity of the nasopharynx and a retropharyngeal cellulitis in her abscess was suspect. We were unable to do contrast because of his kidney function. He has neck pain but attributes the neck pain to morning lawn on the right a lawnmower. He has no dysphasia. He has no odontophagia. He is able to swallow well and he has no pain when he swallows. The CAT scan showed irregularity to the nasopharynx and I did review the films. Patient had a previous adenoidectomy and tonsillectomy many years ago. Review of Systems - Constitutional Constitutional Comment(s): Neck pain possibly from riding a lawnmower. Fevers chills are noted Reports malaise, Reports night sweats, Reports poor appetite - EENT Eyes: denies decreased vision, denies diplopia Ears: deny: decreased hearing Ears, nose, mouth and throat: Denies dental pain, Denies epistaxis, Denies neck lump - Cardiovascular Denies claudication, Denies palpitations - Respiratory Reports cough, Reports dyspnea - Gastrointestinal Denies belching, Denies early satiety - Genitourinary Reports dysuria - Musculoskeletal Denies fractures - Integumentary Reports dryness - Neurological Denies change in speech - Psychiatric Denies anxiety attacks - Endocrine Denies flushing - Hematologic/Lymphatic Denies easy bleeding - Allergic/Immunologic Denies allergic rhinitis Past Medical History Past Medical History: Diabetes Mellitus, Hypertension Additional Past Medical History / Comment(s): Morbid obesity, diabetes mellitus , hypertension, 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 Patient also has hyperlipidemia, chronic degenerative arthritis and neck pain, lacunar infarct on a CAT scan of the head History of Any Multi-Drug Resistant Organisms: None Reported Past Surgical History: Hernia Repair Additional Past Surgical History / Comment(s): urthera strictures x2 Past Anesthesia/Blood Transfusion Reactions: No Reported Reaction Past Psychological History: No Psychological Hx Reported Smoking Status: Never smoker Past Alcohol Use History: None Reported Past Drug Use History: None Reported Medications and Allergies Home Medications Medication Instructions Recorded Confirmed Type ALPRAZolam [Xanax] 0.25 mg PO BID PRN 12/12/16 12/12/16 History Aspirin [Adult Low Dose Aspirin EC] 81 mg PO DAILY 12/12/16 12/12/16 History Atorvastatin [Lipitor] 20 mg PO DAILY 12/12/16 12/12/16 History Glimepiride [Amaryl] 2 mg PO BID 12/12/16 12/12/16 History Labetalol [Trandate] 200 mg PO BID 12/12/16 12/12/16 History Zolpidem [Ambien] 5 mg PO HS PRN 12/12/16 12/12/16 History amLODIPine BESYLATE/BENAZEPRIL 1 cap PO DAILY 12/12/16 12/12/16 History [amLODIPine BESYLATE/BENAZEPRIL 10-20 mg] metFORMIN HCL 1,000 mg PO BID 12/12/16 12/12/16 History oxyCODONE-APAP 5-325MG [Percocet 0.5 - 1 tab PO Q6HR PRN 12/12/16 12/12/16 History 5-325 mg] Allergies Allergy/AdvReac Type Severity Reaction Status Date / Time No Known Allergies Allergy Verified 12/12/16 17:16 Surgical - Exam Osteopathic Statement: *. No significant issues noted on an osteopathic structural exam other than those noted in the History and Physical/Consult. Vital Signs Temp Pulse Resp BP Pulse Ox 102 F H 110 H 22 119/71 92 L 12/12/16 16:57 12/12/16 16:57 12/12/16 16:57 12/12/16 16:57 12/12/16 16:57 - General moderate distress, chronically ill, obese - Eyes PERRL, normal ocular movement - ENT Head is normocephalic, the face is symmetric, there is no abnormal movements, there is no tenderness to the sinuses are mastoids. Ears 0 was well-formed canals are clear to medical murmurs without bulging or retraction. Nose is patent with some dryness noted septum relatively straight. Mouth and throat dryness is noted no oral lesions are seen. Neck is unremarkable no tumors or masses are palpable. normal pinna, normal nares - Neck no masses, no bruits - Respiratory Dyspnea with audible expiratory stridor. - Neurologic no confused - Psychiatric oriented to time, oriented to person, oriented to place, speech is normal, memory intact Results - Labs 12/15/16 04:06 12/15/16 04:06 Abnormal Lab Results - Last 24 Hours (Table) 12/14/16 12/14/16 12/15/16 Range/Units 20:39 21:02 04:06 RBC 4.14 L (4.30-5.90) m/uL Hgb 12.1 L (13.0-17.5) gm/dL Hct 36.7 L (39.0-53.0) % Neutrophils # 8.5 H (1.3-7.7) k/uL APTT 36.3 H (22.0-30.0) sec Chloride (98-107) mmol/L Carbon Dioxide (22-30) mmol/L BUN (9-20) mg/dL Creatinine (0.66-1.25) mg/dL Glucose (74-99) mg/dL POC Glucose (mg/dL) 176 H (75-99) mg/dL Calcium (8.4-10.2) mg/dL Creatine Kinase (55-170) U/L 12/15/16 12/15/16 12/15/16 Range/Units 04:06 04:06 07:02 RBC (4.30-5.90) m/uL Hgb (13.0-17.5) gm/dL Hct (39.0-53.0) % Neutrophils # (1.3-7.7) k/uL APTT 35.7 H (22.0-30.0) sec Chloride 109 H (98-107) mmol/L Carbon Dioxide 21 L (22-30) mmol/L BUN 49 H (9-20) mg/dL Creatinine 2.50 H (0.66-1.25) mg/dL Glucose 251 H (74-99) mg/dL POC Glucose (mg/dL) (75-99) mg/dL Calcium 7.5 L (8.4-10.2) mg/dL Creatine Kinase 474 H (55-170) U/L 0512/15/16 12/15/16 Range/Units 11:33 11:35 16:44 RBC (4.30-5.90) m/uL Hgb (13.0-17.5) gm/dL Hct (39.0-53.0) % Neutrophils # (1.3-7.7) k/uL APTT (22.0-30.0) sec Chloride (98-107) mmol/L Carbon Dioxide (22-30) mmol/L BUN (9-20) mg/dL Creatinine (0.66-1.25) mg/dL Glucose (74-99) mg/dL POC Glucose (mg/dL) 339 H 335 H 242 H (75-99) mg/dL Calcium (8.4-10.2) mg/dL Creatine Kinase (55-170) U/L Microbiology - Last 24 Hours (Table) 12/14/16 04:04 Blood Culture - Preliminary Blood No Growth after 24 hours 12/13/16 23:08 Blood Culture - Preliminary Blood No Growth after 24 hours Diabetes panel 12/15/16 Range/Units 04:06 Sodium 140 (137-145) mmol/L Potassium 3.8 (3.5-5.1) mmol/L Chloride 109 H (98-107) mmol/L Carbon Dioxide 21 L (22-30) mmol/L BUN 49 H (9-20) mg/dL Creatinine 2.50 H (0.66-1.25) mg/dL Glucose 251 H (74-99) mg/dL Calcium 7.5 L (8.4-10.2) mg/dL Calcium panel 12/15/16 Range/Units 04:06 Calcium 7.5 L (8.4-10.2) mg/dL Phosphorus 4.4 (2.5-4.5) mg/dL Pituitary panel 12/15/16 Range/Units 04:06 Sodium 140 (137-145) mmol/L Potassium 3.8 (3.5-5.1) mmol/L Chloride 109 H (98-107) mmol/L Carbon Dioxide 21 L (22-30) mmol/L BUN 49 H (9-20) mg/dL Creatinine 2.50 H (0.66-1.25) mg/dL Glucose 251 H (74-99) mg/dL Calcium 7.5 L (8.4-10.2) mg/dL Adrenal panel 12/15/16 Range/Units 04:06 Sodium 140 (137-145) mmol/L Potassium 3.8 (3.5-5.1) mmol/L Chloride 109 H (98-107) mmol/L Carbon Dioxide 21 L (22-30) mmol/L BUN 49 H (9-20) mg/dL Creatinine 2.50 H (0.66-1.25) mg/dL Glucose 251 H (74-99) mg/dL Calcium 7.5 L (8.4-10.2) mg/dL Assessment and Plan (1) Xerostomia Status: Acute (2) Neck pain, musculoskeletal Status: Acute Plan: this patient's neck pain any nasopharyngeal abnormality. There is no evidence of a retropharyngeal abscess. The patient had adenoidectomy and demonstrates an adenoidectomy scar. There is some significant dryness and crusting to the nasopharynx oropharynx and hypopharynx. No obvious signs of infection or noted. Expiratory stridor is noted. I see no evidence of a head and neck etiology for this patient's infection. We continue antibiotic therapy as prescribed as the patient is feeling better. Again, the retropharynx. Oropharynx nasopharynx and hypopharynx appear unremarkable other than the significant dryness and crusting that is noted. Thank you very much for allowing me to participate in the care of this patient. If I can be of any further service to you please do not hesitate to contact me. . Time with Patient: Greater than 30
--- NOTE | 2016-12-15 19:09 | CONS ---
DATE OF CONSULTATION: 12/15/2016 REASON FOR CONSULTATION: Sepsis and group B strep bacteremia. HISTORY OF PRESENT ILLNESS: The patient is a 61-year-old male who presented to the ER at [facility] on 12/12/2016 with chief complaints of generalized weakness, lethargy, fever. The patient's symptoms have been going on for a few days and the patient has also been complaining of pain in the neck area, with no history of any fall. However, apparently the patient had been mowing the lawn, both his and his parents', though no history of any trauma. Subsequently the patient was evaluated by the ER physician. The patient was noted to have hypertension and fever with elevated white count with features of septic shock. The patient was started on Zithromax and Zosyn. Chest x-ray was negative for any pneumonia. The patient did require fluid boluses . A CT of cervical spine and the brain was negative for any acute fracture. Patient's blood cultures were growing Streptococcus agalactiae, group B; hence ID was consulted for further recommendation regarding antibiotic therapy. At the time of my evaluation the patient remains to be tender in the posterior neck area with dull aching pain, 5 to 6 out of 10 and no radiation. No skin breakdown, no drainage. The patient denies any difficulty in swallowing. He is complaining of shortness of breath, but no significant chest pain or cough. The patient denies any abdominal pain. The patient denies any diarrhea; no burning or frequency of urine. No wound or any swelling or redness in any part of the body. REVIEW OF SYSTEMS: CONSTITUTIONAL: Positive for weakness along with a fever. He did have a fever of 102 on admission. It is down to about 100 this morning. EYES: No complaint. ENT: As per HPI. RESPIRATORY: As per HPI. GENITOURINARY: No complaint. GASTROINTESTINAL: No complaint. MUSCULOSKELETAL: As per HPI. INTEGUMENTARY: As per HPI. PSYCHOLOGIC: No complaint. ENDOCRINE: No complaint. NEUROLOGIC: No complaint. Past medical history is significant for: 1. Morbid obesity. 2. Hypertension. 3. Diabetes mellitus. 4. Urethral stricture. PAST SURGICAL HISTORY: Hernia repair and urethral stricture dilatation SOCIAL HISTORY: Denies smoking, drinking or drug use. FAMILY HISTORY: No pertinent findings noticed. ALLERGIES: NO KNOWN DRUG ALLERGIES. Medications include: 1. Tylenol. 2. DuoNeb. 3. Xanax. 4. Eliquis. 5. Lipitor. 6. Celexa. 7. Diltiazem. 8. Lasix. 9. Lantus. 10. Humalog. 11. Trandate. 12. Narcan. 13. Percocet. 14. Zosyn. 15. Zithromax. 16. Vancomycin. On examination, blood pressure is 157/89 with a pulse of 102, temperature of 100. He is 98% on 4 L nasal cannula. General description is a middle-aged male lying in bed in no distress. No tachypnea or accessory muscle of respiration use. HEENT examination shows slight pallor. No scleral icterus. Oral mucous membrane is dry. Examination of the posterior neck area shows slight erythema and it is slightly warm to touch. There is no fluctuation or induration. LUNGS: Unlabored breathing. Clear to auscultation anteriorly. HEART: S1, S2. Regular rate and rhythm. ABDOMEN: Soft. No tenderness. EXTREMITIES: No edema of the feet. Genitourinary examination showed no swelling or redness of the scrotal area. No significant groin area cutaneous candidiasis. Neurologically patient was awake, alert and oriented x3. Mood and affect normal. LABS: Hemoglobin is 12.1, white count 10.6. Admission white count was 12 with a BUN of 49, creatinine 2.50. UA was not significantly positive. Chest x-ray negative. Blood cultures with group B Streptococcus agalactiae. DIAGNOSTIC IMPRESSION AND PLAN: Patient admitted to hospital with sepsis that could be strep bacteremia which is usually of skin and soft tissue, infection related. The patient's pain has been in the posterior neck area with some erythema and warmth noticed. The question of possible neck area cellulitis or retropharyngeal cellulitis cannot be entirely excluded as the likely etiology of his sepsis; no other clinical focus of infection. No significant inflammation or cellulitis was noticed in the groin or the lower extremity area. Chest x-ray has been negative for any pneumonia. Urine was negative. PLAN: 1. Will obtain a CT of the soft tissue of the neck with no contrast in view of his borderline kidney function. 2. Will discontinue vancomycin and Zosyn and start the patient on cefazolin and clindamycin to cover for group B strep. 3. Will follow up on his clinical condition and cultures to further adjust his medication if needed. Thank you for this consultation. Will follow this patient along with you. JEN
[2016-12-15 20:26] LABS: Glucose,Whole Blood 209 mg/dL (75-99)
[2016-12-15] MEDS: ALPRAZolam 0.25 MG TAB PO PRN (20:28)
[2016-12-15] MEDS: SODIUM CHLORIDE 0.9% 1,000 ML IV SCH (20:28)
[2016-12-15] MEDS: oxyCODONE-APAP 5-325MG 1 EACH TAB PO PRN (20:28)
[2016-12-15] MEDS: LABETALOL 200 MG TAB PO SCH (20:30)
[2016-12-15] MEDS: INSULIN GLARGINE 100 UNIT/ML 10 ML VIAL SQ SCH (20:32)
--- NOTE | 2016-12-15 21:00 | PN ---
The patient still continues to be quite sick and patient is wheezing quite a quite a bit because of which I will go ahead and give him steroids. Patient had soft tissue CT which showed posterior pharyngeal cellulitis, which may be the cause for his sepsis and septic shock and I will go ahead and give him steroids which helps with the edema and the posterior pharyngeal wall and also consult ENT regarding this. REVIEW OF SYSTEMS: CARDIOVASCULAR: No chest pain, no orthopnea, no PND, no palpitations. PULMONARY: Continued significant shortness of breath. Patient appears to be severely sick, malaise. GASTROINTESTINAL: No diarrhea, nausea or vomiting. No abdominal pain. Normoactive bowel sounds. NEUROLOGIC: No headaches, no weakness, no numbness. Medications were reviewed. PHYSICAL EXAMINATION: Temperature 99.0, pulse of 102, respiratory rate 25, blood pressure is 161/87. Saturating at 94% on 4 liters O2 by cannula. GENERAL: The patient appears to be in significant distress, wheezing, using accessory muscles for breathing. Morbidly obese. Alert and oriented x3. HEENT: Pupils are round and equally reacting to light. EOMI. No scleral icterus. No conjunctival pallor. Normocephalic, atraumatic. No pharyngeal erythema. No thyromegaly. CARDIOVASCULAR: S1 and S2 present. No murmurs, rubs, or gallops. PULMONARY: Significant expiratory wheezing was appreciated. No crackles were appreciated. ABDOMEN: Soft, nontender, nondistended, normoactive bowel sounds. No palpable organomegaly. MUSCULOSKELETAL: No joint swelling or deformity. EXTREMITIES: No cyanosis, clubbing, or pedal edema. NEUROLOGICAL: Gross neurological examination did not reveal any focal deficits. SKIN: No rashes. LABORATORY DATA: CBC, CMP are abnormal for elevated BUN and creatinine of 449 and 2.50. ASSESSMENT AND PLAN: 1. Septic shock improved, but patient is on Zosyn. Patient was switched to Unasyn. Patient has posterior pharyngeal cellulitis, probably that is the reason for his sepsis rather than pneumonia. 2. Possible chronic obstructive pulmonary disease or severe restrictive lung disease with posterior pharyngeal cellulitis obstructing on the trachea maybe resulting in that wheezing. I will go ahead and give him systemic steroids to decrease the swelling, although his blood sugars are expected to go high because of that. 3. Severe intravascular volume depletion leading to acute renal failure along with acute tubular necrosis with component of chronic kidney disease secondary to diabetic nephropathy. 4. Atrial fibrillation, rate controlled at this point of time. 5. Pseudohyponatremia which resolved secondary to hyperglycemia. 6. Uncontrolled diabetes mellitus, type II with uncontrolled blood sugars. 7. Lactic acidosis secondary to septic shock, improved. 8. Morbid obesity. 9. Possible sleep apnea and restrictive lung disease. Patient is quite sick.
--- NOTE | 2016-12-15 21:09 | CONS ---
DATE OF CONSULTATION: REASON FOR CONSULTATION: Renal failure. HISTORY OF PRESENT ILLNESS: Patient is a 61-year-old white male who was admitted to the hospital on 12/12/2016 with a history of weakness. He had decreased oral intake prior to admission. Patient was noted to be quite hypotensive and was admitted to the ICU. His x-ray showed left lower lobe pneumonia. Serum creatinine was 2.1 mg/dL on initial admission. It is now 2.5, which is slightly lower from 2.69 from yesterday. Patient's urine output is about 20 to 30 mL/hour. He is maintained on IV fluids. He has received significant IV fluid resuscitation. He appeared to be volume-overloaded and was started on Lasix today. Prior creatinine was 0.8 mg/dL as outpatient in his primary care physician's office. Current blood pressure is on the higher side. Patient does have significant urethral strictures and he has been voiding on his own currently. PAST MEDICAL HISTORY: 1. Type 2 diabetes. 2. Hypertension. 3. Obesity. 4. Urethral stricture. 5. Hyperlipidemia. 6. Osteoarthritis. SOCIAL HISTORY: Negative for smoking, drug abuse or alcohol abuse. PAST SURGICAL HISTORY: 1. Hernia repair. 2. Internal ureterotomy. Medications prior to admission included: 1. Lipitor. 2. Amaryl. 3. Trandate. 4. Ambien. 5. Benazepril. 6. Amlodipine. 7. Metformin. 8. Aspirin. 9. Xanax. ALLERGIES: NONE. On examination, currently patient is comfortable. He appears mildly short of breath. He is not in any acute distress. Blood pressure is 183/86, heart rate 96 per minute. He is afebrile. EXAMINATION OF THE HEART: S1 and S2. EXAMINATION OF THE LUNGS: Bilateral breath sounds are heard. Decreased breath sounds in bases. ABDOMEN: Soft, nontender, obese. Examination of lower extremities shows chronic skin changes. Trace edema noted bilaterally. POST ACUTE CARE NURSE exam shows patient has been moving all 4 extremities. Labs show sodium 140, potassium 3.8, chloride 109, BUN 49, serum creatinine 2.5. Hemoglobin 12.1 g/dL. UA shows WBCs 33, RBCs 10, 1+ protein, 4+ glucose, moderate blood. Chest x-ray shows evidence of cardiomegaly with no acute pulmonary process. Patient had a neck CT suggestive of retropharyngeal cellulitis. ASSESSMENT: 1. Acute kidney injury, acute tubular necrosis, currently non-oliguric, secondary to hypotension and hypoperfusion. 2. Retropharyngeal cellulitis; no evidence of abscess. Patient is status post evaluation by ENT. 3. Mild volume overload. May continue with the Lasix. Discontinue the IV fluids. Continue to encourage increased oral intake. Patient has been eating. 4. Atrial fibrillation with controlled ventricular response, being followed by Cardiology. Anticoagulation has been discontinued. 5. Bacteremia with blood cultures positive for Strep agalactiae, maintained on vancomycin. PLAN: Continue Lasix. Discontinue IV fluids. Continue to avoid nephrotoxic agents. Repeat labs in a.m. Hold off on the INES inhibitors for now, given the acute kidney injury. Thank you for this consultation. Will continue to follow the patient with you during his hospitalization.
[2016-12-16] MEDS: AMPICILLIN-SULBACTAM 3 GM in SODIUM CHLORIDE 0.9% 100 ML IVPB SCH ×3 (00:02→16:50)
[2016-12-16] MEDS: DILTIAZEM 125 MG in SODIUM CHLORIDE 0.9% 100 ML IV SCH (02:28)
[2016-12-16] MEDS: oxyCODONE-APAP 5-325MG 1 EACH TAB PO PRN (02:32)
[2016-12-16 04:43] LABS: Calcium 7.9 mg/dL (8.4-10.2); Magnesium 1.9 mg/dL (1.6-2.3); Phosphorous 6.5 mg/dL (2.5-4.5); Potassium 4.8 mmol/L (3.5-5.1)
[2016-12-16 04:50] LABS: Basophils % (A) 0 %; CH 28.1; CHCM 30.4; Eosinophils % (A) 0 %; HCT 39.2 % (39.0-53.0); HDW 2.78; HGB 11.8 gm/dL (13.0-17.5); Hypochromasia Moderate; Luc # (Auto) 0.13; Luc % (Auto) 1; Lymphocytes # (A) 0.5 k/uL (1.0-4.8); Lymphocytes % (A) 4 %; MCHC 30.2 g/dL (31.0-37.0); MCV 92.9 fL (80.0-100.0); Mean Platelet Volume 8.8; Monocytes # (A) 0.3 k/uL (0-1.0); Monocytes % (A) 3 %; Neutrophils # (A) 10.5 k/uL (1.3-7.7); Neutrophils % (A) 92 %; RBC 4.22 m/uL (4.30-5.90); RDW 13.8 % (11.5-15.5); WBC 11.4 k/uL (3.8-10.6); WBC (Perox) 11.99
[2016-12-16 05:09] LABS: Creatine Kinase MB 0.9 ng/mL (0.0-2.4); Troponin I <0.012 ng/mL (0.000-0.034)
[2016-12-16] MEDS: IPRATROPIUM-ALBUTEROL 3 ML NEB INHALATION SCH ×4 (07:19→19:22)
[2016-12-16] MEDS: SYMBICORT 160-4.5 MCG INHALER INHALATION SCH ×2 (07:19→19:22)
--- NOTE | 2016-12-16 08:07 | XR ---
EXAMINATION TYPE: XR chest 1V DATE OF EXAM: 12/16/2016 6:46 AM COMPARISON: 12/15/2016 HISTORY: 61-year-old male follow-up pneumonia TECHNIQUE: Single frontal view of the chest is obtained. FINDINGS: The heart remains mildly enlarged. Elongation/ectasia of the thoracic aorta. There may be distention of the azygos vein. Mild interstitial prominence is unchanged. Underpenetration of the peripheral lef t base limiting its evaluation. Otherwise, lungs and pleural spaces appear clear. IMPRESSION: Cardiomegaly and tortuous/ectatic thoracic aorta redemonstrated. Left base is underpenetrated and sub optimally assessed. Otherwise, no acute process seen elsewhere in the lungs.
[2016-12-16 08:13] LABS: Glucose,Whole Blood 369 mg/dL (75-99)
[2016-12-16] MEDS: INSULIN LISPRO (humaLOG) 300 UNIT/3 ML VIAL SQ SCH ×7 (09:01→21:58)
[2016-12-16] MEDS: APIXABAN 2.5 MG TABLET PO SCH ×2 (09:05→21:58)
[2016-12-16] MEDS: LABETALOL 200 MG TAB PO SCH ×2 (09:07→21:58)
[2016-12-16] MEDS: ATORVASTATIN 20 MG TAB PO SCH (09:07)
[2016-12-16] MEDS: FAMOTIDINE 20 MG TAB PO SCH (09:07)
[2016-12-16] MEDS: predniSONE 20 MG TAB PO SCH (09:08)
[2016-12-16] MEDS: LISINOPRIL 20 MG TAB PO SCH (10:07)
[2016-12-16] MEDS: amLODIPine 10 MG TAB PO SCH (10:07)
[2016-12-16] MEDS: FUROSEMIDE 20 MG TAB PO SCH (10:08)
--- NOTE | 2016-12-16 11:42 | CDI ---
In responding to this query, please exercise your independent professional judgment. The [facility] Coding Staff and Clinical Documentation Specialists appreciate your assistance in clarifying documentation, maintaining compliance with coding guidelines, accurately documenting patients condition and capturing severity of illness. The fact that a question is asked does not imply that any particular answer is desired or expected. Communication forms are a method of clarifying documentation and are not made part of the Legal Health Record. Thank you in advance for your clarification. Last Revision, June 2015 Tuyet Pascual [address] [facility] [place] [address] Documentation Clarification Form Date: 12/16/2016 11:34:00 AM From: Chiara Yeboah CCS, CCDS Admit Date: 12/12/2016 7:34:00 PM Patient Name: Hunter Garcia Visit Number: [id number] Discharge Date: Dr. Anthony Anguiano: Atrial fibrillation is documented in the 12/13 Cardiology Consult as "...developed an A Fib w/RVR". History/Risk Factors: No known cardiac history, DM, Hypertension, Morbid Obesity. Clinical Indicators: Presented with SOB, diagnosed with Severe Sepsis and Septic Shock & uncontrolled DM II EKG/telemetry: R 108 sinus tachycardia Heart rates: 110, 108, 102, 80s, 90s, 100s Treatment: Cardizem & Heparin drips, IV antibiotics, IV fluid resuscitation. Consults: Cardiology, Pulmonary/Critical Care, ENT, Urology, Infectious Disease , Nephrology In your professional opinion, can you please clarify the type of atrial fibrillation, if known? Chronic/Permanent Paroxysmal Persistent Other, please specify Unable to determine Please document in your progress notes and discharge summary in order to capture severity of illness and risk of mortality. Include clinical findings that support your diagnosis. FYI: Press F11 to launch patient chart Place X here if this finding has no clinical significance, is not applicable or if you are not able to provide any additional documentation. Thank You. JEN
[2016-12-16 11:46] LABS: Glucose,Whole Blood 466 mg/dL (75-99)
[2016-12-16] MEDS: FUROSEMIDE 10 MG/ML 4 ML VIAL IV SCH (12:29)
--- NOTE | 2016-12-16 12:52 | P.PN ---
Subjective Principal diagnosis: Acute septic shock obese 61-year-old male patient who weighs approximately 150 kg, came into the emergency department yesterday with generalized weakness, lethargy, fever and feeling sick in general. Immediately the patient was found to be in septic shock. The patient was hypotensive with diminished urine output. He is known to have urethral strictures and chronic urinary retention and previous history of urinary tract infections. As such a UA was done and the findings were quite abnormal and the urine itself was quite dirty and cloudy. At that point, the patient was started on IV fluids for aggressive fluid resuscitation. He got moved to the intensive care unit where he was placed on a combination of Zosyn and Zithromax. The patient was also placed on pressors briefly when he was on norepinephrine infusion and later on 6:30 AM the norepinephrine infusion was discontinued. Most recent blood pressure is in the 108 systolic. Urine output has been uncertain nontender the patient had difficulties in urination. He claims it has been difficult for him to insert a Davalos catheter because of urinary stricture. He refused a Davalos catheter. A urology consultation has been initiated. The patient also has BPH. Meanwhile, the patient was noted to have significantly elevated blood sugar with his blood sugar was in the 700s range. He was started on insulin drip which ultimately got discontinued. Patient is known to have diabetes mellitus and hypertension. He is morbidly obese. Earlier this morning he went into atrial fibrillation with a heart rate of 118. No chest pain. No shortness of breath. Minimal cough. No open wounds or sores. No change in mental status. He is complaining of a neck pain and he has had multiple falls. Note that the CAT scan of the brain and spine was done in the emergency department at time of arrival and it showed no acute intracranial hemorrhage or midline shift. There was mild ventricular prominence. There is evidence of old lacunar infarct in the right basal ganglia. Cervical spine showed moderate degree of multilevel degenerative changes. Note that his lactic acid level has dropped from 3.4 at baseline down to 1.8. Patient was reevaluated today on 12/14/2016, he is off norepinephrine, responded well initially to fluids along with norepinephrine, and he remains hemodynamically stable at this point. However intermittently he seems to be a bit confused, but he is running a temp of 101.5 earlier today. Blood cultures came back positive for strep agalactiae group B. Urine cultures are pending. Patient is on antibiotics in the form of Zosyn and vancomycin. Infectious disease consultation is pending. Patient is in A. fib with RVR, and he is hypertensive, hence I have recommended increasing the Cardizem drip to 10 mg per hour. IV fluid is down to 50 mL/h, patient did receive significant amount of fluid boluses yesterday up on presentation. ABG on 36% FiO2 showed a pO2 of 83 pCO2 of 38 pH of 7.36. Renal profile is a bit improved and creatinine is down to 2.50 from 2.69 yesterday. Lactic acid is down to 1.8 set of 3.4 on admission. Patient seems to be comfortable, in no distress. On 12/15/2016, patient remains off norepinephrine, hemodynamically stable, and I discussed his condition with the infectious disease specialist on the case, he believes that the source of infection could be a soft tissue, and he is raising the possibility of soft tissue of the neck, patient presented with neck pain, and the patient will have a CT of the head and neck today. Follow-up blood cultures after 12/12 remain negative. However blood cultures from 12/12 were all positive for strep agalactiae group B. Urine culture is nondiagnostic, it showed mostly skin madhu. Blood pressure remains elevated. Patient is now on oral labetalol, atrial fibrillation is controlled. Heparin was switched to eliquis. Patient seems to be short of breath, however the patient denies being short of breath, and he told me today that he is normally like this. Last ABG was relatively unremarkable. Patient is receiving diuretics as per cardiology on the case. On 12/16/2016, patient is doing much better, breathing a lot easier, was on BiPAP last night, however today he is on 2 L nasal cannula, and seems to be tolerating that well with O2 saturation in the mid and high 90s. patient feels more comfortable, even the neck pain is much improved. follow-up blood cultures have been negative compared to the initial blood cultures which were positive on admission. no clear source of soft tissue infection at this point. patient is denying any shortness of breath no cough no wheezing, no chest pain no nausea no vomiting no abdominal pain. hence I plan to transfer the patient out of the ICU today. antibiotics rankin, patient is now on Unasyn. Objective - Vital Signs Vital signs: Vital Signs Temp 97.0 F L 12/16/16 11:46 Pulse 100 12/16/16 11:46 Resp 22 12/16/16 11:46 BP 123/85 12/16/16 11:46 Pulse Ox 97 12/16/16 11:46 Intake & Output 12/15/16 12/16/16 12/16/16 18:59 06:59 18:59 Intake Total 543.435 1047 280 Output Total 2275 600 670 Balance -1376.007 720 -390 Weight 156.2 kg Intake: IV 360 240 80 Sodium Chloride 0.9% 1, 360 240 80 000 ml @ 20 mls/hr IV . Q24H [facility] Rx#:[id number] Intake, IV Titration 538.993 100 Amount Ampicillin-Sulbactam 3 gm 100 100 In Sodium Chloride 0.9% 100 ml @ 100 mls/hr IVPB Q8HR [facility] Rx#:[id number] Heparin Sodium,Porcine/ 388.993 D5w Pmx 25,000 unit In Dextrose/Water 1 500ml. bag @ 15.6 UNITS/KG/HR 47 .17 mls/hr IV .[id number] [facility] Rx#:[id number] Piperacillin-Tazobactam 3 50 .375 gm In Dextrose/Water 1 50ml.bag @ 12.5 mls/hr IVPB Q8HR [facility] Rx#: [id number] Oral 980 200 Output: Urine 2275 600 670 Other: Voiding Method Urinal Urinal Urinal # Voids 1 1 2 # Bowel Movements 0 0 - Exam Morbid obese, calm and comfortable, not in acute distress. The upper cervical spine is a bit tender to palpation. The neck is less painful to passive range of motion. tenderness over the right mastoid area was noted. Head exam was generally normal. There was no scleral icterus or corneal arcus. Mucous membranes were moist. No JVDs. No goiter or neck masses. The patient has significant crowding of the posterior oropharynx. Lung sounds are diminished in the lung bases bilaterally. There is no wheezes or rhonchi. Heart shows regular rate and rhythm positive S1-S2, no significant murmurs appreciated. Abdomen is obese soft nontender. Organs cannot be palpated. No direct tenderness, no rebound tenderness, no guarding. Extremities trace edema there is no cyanosis or clubbing and pulses are diminished bilaterally. Neurologically the patient is awake and alert. No focal neurological deficits. - Labs CBC & Chem 7: 12/16/16 04:00 12/16/16 04:00 Labs: Abnormal Lab Results - Last 24 Hours (Table) 12/15/16 12/15/16 12/16/16 Range/Units 16:44 20:25 04:00 WBC 11.4 H (3.8-10.6) k/uL RBC 4.22 L (4.30-5.90) m/uL Hgb 11.8 L (13.0-17.5) gm/dL MCHC 30.2 L (31.0-37.0) g/dL Neutrophils # 10.5 H (1.3-7.7) k/uL Lymphocytes # 0.5 L (1.0-4.8) k/uL Chloride (98-107) mmol/L Carbon Dioxide (22-30) mmol/L BUN (9-20) mg/dL Creatinine (0.66-1.25) mg/dL Glucose (74-99) mg/dL POC Glucose (mg/dL) 242 H 209 H (75-99) mg/dL Calcium (8.4-10.2) mg/dL Phosphorus (2.5-4.5) mg/dL 12/16/16 12/16/16 12/16/16 Range/Units 04:00 08:10 11:42 WBC (3.8-10.6) k/uL RBC (4.30-5.90) m/uL Hgb (13.0-17.5) gm/dL MCHC (31.0-37.0) g/dL Neutrophils # (1.3-7.7) k/uL Lymphocytes # (1.0-4.8) k/uL Chloride 109 H (98-107) mmol/L Carbon Dioxide 21 L (22-30) mmol/L BUN 54 H (9-20) mg/dL Creatinine 2.30 H (0.66-1.25) mg/dL Glucose 301 H (74-99) mg/dL POC Glucose (mg/dL) 369 H 466 H (75-99) mg/dL Calcium 7.9 L (8.4-10.2) mg/dL Phosphorus 6.5 H (2.5-4.5) mg/dL Microbiology - Last 24 Hours (Table) 12/14/16 04:04 Blood Culture - Preliminary Blood No Growth after 48 hours 12/15/16 04:06 Blood Culture - Preliminary Blood No Growth after 24 hours 12/15/16 20:45 Gram Stain - Preliminary Sputum Sputum Culture - Preliminary 12/13/16 23:08 Blood Culture - Preliminary Blood No Growth after 48 hours Assessment and Plan Plan: 1 acute septic shock/intravascular volume depletion/dehydration. Source of the sepsis is not clear, ENT evaluation felt that the source is not neck related and the findings were nondiagnostic. patient is presently on Unasyn for his septic shock and bacteremia upon presentation. follow-up cultures after 12/12 are negative. 2 profound hypovolemia , resolved, patient required fluid boluses, followed by Lasix later on, and now on cutting the dose of Lasix. 3 diabetes mellitus with severe hyperglycemia, no signs of DKA 4 acute kidney injury secondary to above 5 chronic obstructive uropathy secondary to BPH and urethral strictures 6 new onset atrial fibrillation with rapid ventricular response 7 lactic acidosis, improving 8 morbid obesity 9 chronic obstructive sleep apnea. 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 patient will be transferred out of the ICU today, and we will continue to follow. Time with Patient: Less than 30
--- NOTE | 2016-12-16 13:11 | P.PN ---
Subjective Principal diagnosis: Atrial fibrillation This is a pleasant 61-year-old gentleman with a past medical history significant for morbid obesity, diabetes, hypertension, and dyslipidemia, was admitted to the emergency room because he was not feeling well. The patient history started about a week ago when he was experiencing some exertional dyspnea up on doing some work at home. The symptoms got worse over the next few days. Earlier today he went to the bathroom and obviously he fell on the floor and he was unable to get up because he was so weak. He did not experience any chest pain or discomfort and he did not lose his consciousness. The family brought the patient to the emergency room. In the ER the patient was found to have fever and also he was diagnosed with septic shock where he required vasopressors for brief period of time. We get involved in the care of the patient because he developed an A. fib with RVR. The patient is not aware of any prior cardiac history and there were seen a bioinformatics research technician in the past. I'll follow-up with the patient today, he continues to be in A. fib with relatively controlled heart rates. He is alert be total 200 mg by mouth twice a day. He was started on anticoagulation with Eliquis and we will continue that. The echocardiogram was performed and the ejection fraction was not assessed because of the patient body habitus. Objective - Vital Signs Vital signs: Vital Signs Temp 97.0 F L 12/16/16 11:46 Pulse 100 12/16/16 11:46 Resp 22 12/16/16 11:46 BP 123/85 12/16/16 11:46 Pulse Ox 97 12/16/16 11:46 Intake & Output 12/15/16 12/16/16 12/16/16 18:59 06:59 18:59 Intake Total 343.187 7214 280 Output Total 2275 600 670 Balance -1376.007 720 -390 Weight 156.2 kg Intake: IV 360 240 80 Sodium Chloride 0.9% 1, 360 240 80 000 ml @ 20 mls/hr IV . Q24H [facility] Rx#:[id number] Intake, IV Titration 538.993 100 Amount Ampicillin-Sulbactam 3 gm 100 100 In Sodium Chloride 0.9% 100 ml @ 100 mls/hr IVPB Q8HR [facility] Rx#:[id number] Heparin Sodium,Porcine/ 388.993 D5w Pmx 25,000 unit In Dextrose/Water 1 500ml. bag @ 15.6 UNITS/KG/HR 47 .17 mls/hr IV .[id number] [facility] Rx#:[id number] Piperacillin-Tazobactam 3 50 .375 gm In Dextrose/Water 1 50ml.bag @ 12.5 mls/hr IVPB Q8HR [facility] Rx#: [id number] Oral 980 200 Output: Urine 2275 600 670 Other: Voiding Method Urinal Urinal Urinal # Voids 1 1 2 # Bowel Movements 0 0 - Constitutional General appearance: Present: no acute distress - Respiratory Respiratory: bilateral: wheezing - Cardiovascular Rhythm: irregularly irregular - Labs CBC & Chem 7: 12/16/16 04:00 12/16/16 04:00 Labs: Abnormal Lab Results - Last 24 Hours (Table) 12/15/16 12/15/16 12/16/16 Range/Units 16:44 20:25 04:00 WBC 11.4 H (3.8-10.6) k/uL RBC 4.22 L (4.30-5.90) m/uL Hgb 11.8 L (13.0-17.5) gm/dL MCHC 30.2 L (31.0-37.0) g/dL Neutrophils # 10.5 H (1.3-7.7) k/uL Lymphocytes # 0.5 L (1.0-4.8) k/uL Chloride (98-107) mmol/L Carbon Dioxide (22-30) mmol/L BUN (9-20) mg/dL Creatinine (0.66-1.25) mg/dL Glucose (74-99) mg/dL POC Glucose (mg/dL) 242 H 209 H (75-99) mg/dL Calcium (8.4-10.2) mg/dL Phosphorus (2.5-4.5) mg/dL 12/16/16 12/16/16 12/16/16 Range/Units 04:00 08:10 11:42 WBC (3.8-10.6) k/uL RBC (4.30-5.90) m/uL Hgb (13.0-17.5) gm/dL MCHC (31.0-37.0) g/dL Neutrophils # (1.3-7.7) k/uL Lymphocytes # (1.0-4.8) k/uL Chloride 109 H (98-107) mmol/L Carbon Dioxide 21 L (22-30) mmol/L BUN 54 H (9-20) mg/dL Creatinine 2.30 H (0.66-1.25) mg/dL Glucose 301 H (74-99) mg/dL POC Glucose (mg/dL) 369 H 466 H (75-99) mg/dL Calcium 7.9 L (8.4-10.2) mg/dL Phosphorus 6.5 H (2.5-4.5) mg/dL Microbiology - Last 24 Hours (Table) 12/14/16 04:04 Blood Culture - Preliminary Blood No Growth after 48 hours 12/15/16 04:06 Blood Culture - Preliminary Blood No Growth after 24 hours 12/15/16 20:45 Gram Stain - Preliminary Sputum Sputum Culture - Preliminary 12/13/16 23:08 Blood Culture - Preliminary Blood No Growth after 48 hours Assessment and Plan Plan: Assessment Septic shock A. fib with RVR Morbid obesity Acute renal failure Hypovolemia Plan #1 continue the current dose of labetalol which is 200 mg by mouth twice a day #2 continue anticoagulation #3 follow-up with the patient
--- NOTE | 2016-12-16 14:08 | PN ---
DATE OF SERVICE: 12/16/2016 Reason for followup is group B strep bacteremia and neck cellulitis. INTERVAL HISTORY: The patient is afebrile. Overall improvement. Patient denies any worsening pain to the neck area and denies significant swelling. Patient denies having any chest pain, shortness of breath, or cough. No abdominal pain or any diarrhea. On examination, blood pressure is 123/85 with a pulse of 100, temperature 97. He is 97% on 4 L nasal cannula. General description is a middle-age male up in the chair in no distress. HEENT EXAMINATION: Minimal erythema of the posterior neck but no fluctuation or induration. LUNGS: Unlabored breathing. Clear to auscultation anteriorly. HEART: S1, S2, regular rate and rhythm. ABDOMEN: Soft, no tenderness. LABS: Hemoglobin is 11.8, white count OF 11.4 with a BUN of 54, creatinine is 2.30. DIAGNOSTIC IMPRESSION AND PLAN: Patient with group B strep bacteremia. Source is likely neck cellulitis with no evidence of any abscess formation. Patient responded to Unasyn that will be continued for another 24 to 48 hours. If the patient continues to improve, hopefully we will be able to finish therapy with oral antibiotic therapy. Family was present at the beside. Their questions and concerns were answered.
[2016-12-16] MEDS ORDERED: FUROSEMIDE 10 MG/ML 4 ML VIAL IV STA (16:18)
--- NOTE | 2016-12-16 17:01 | PN ---
Patient is seen for followup for acute kidney injury. He is currently sitting out of bed, comfortable. He feels much better; looks better as well. He continues to have good urine output. Serum creatinine is slightly better at 2.3 from 2.5 yesterday. Patient's IV fluids were discontinued yesterday. He is maintained on daily dose of IV Lasix. He is being transferred out of the ICU. On examination, blood pressure is 123/85, heart rate 100 per minute. He is afebrile. EXAMINATION OF THE HEART: S1 and S2. EXAMINATION OF THE LUNGS: Bilateral breath sounds are heard. Decreased breath sounds in bases. ABDOMEN: Soft, obese. Examination of her extremities shows edema 1+ bilaterally, chronic skin changes. ONCOLOGY COORDINATOR exam is grossly intact. Labs show sodium 142, potassium 4.8, chloride 109, BUN 54, serum creatinine 2.3. Hemoglobin 11.8 g/dL. ASSESSMENT: 1. Acute kidney injury, acute tubular necrosis secondary to hypotension, hypoperfusion, currently improved. 2. Mild volume overload. Will repeat IV Lasix x1 and then switch to p.o. starting tomorrow. 3. Hypertension, currently better controlled. Patient is maintained on lisinopril, which we can continue. At this time it seems to be around 130 to 140 mmHg. 4. Urethral stricture; currently passing urine appropriately. 5. Retropharyngeal cellulitis with no evidence of abscess, status post evaluation by ENT; currently maintained on IV antibiotics. 6. Atrial fibrillation with controlled ventricular response. 7. Bacteremia with blood cultures growing Streptococcus agalactiae, maintained on IV vancomycin. PLAN: Repeat Lasix IV x1. May switch to p.o. Lasix starting tomorrow. BUN is disproportionately elevated from the steroids as well. If there is no significant improvement in renal function, I will decrease the INES inhibitors tomorrow. Patient's prior creatinine was 0.85 as outpatient.
--- NOTE | 2016-12-16 18:36 | PN ---
ADDENDUM PHYSICAL EXAMINATION: Temperature 97.0, pulse 101, respiratory rate of 22. Blood pressure is 144/85. Saturating at 97% on 4 L of oxygen by nasal cannula. GENERAL: Morbidly obese. Alert and oriented x3. Patient's respiratory status has improved significantly. His wheezing improved quite a bit with systemic steroids, although we will cut down the systemic steroids because of his uncontrolled blood sugars. HEENT: Pupils are round and equally reacting to light. EOMI. No scleral icterus. No conjunctival pallor. Normocephalic, atraumatic. No pharyngeal erythema. No thyromegaly. CARDIOVASCULAR: S1 and S2 present. No murmurs, rubs, or gallops. PULMONARY: Chest is clear to auscultation, no wheezing or crackles. ABDOMEN: Soft, nontender, nondistended, normoactive bowel sounds. No palpable organomegaly. MUSCULOSKELETAL: No joint swelling or deformity. EXTREMITIES: No cyanosis, clubbing, or pedal edema. NEUROLOGICAL: Gross neurological examination did not reveal any focal deficits. SKIN: No rashes. LABORATORY DATA: Basic metabolic profile is abnormal for elevated BUN and creatinine of 54 and 2.3. Blood sugars are highly elevated, going up to 400 due to systemic steroids we started him on. ASSESSMENT AND PLAN: 1. Septic shock, improved, secondary to bacteremia with Strep agalactiae, possible source being posterior pharyngeal cellulitis. Ruled out pneumonia. Possible chronic obstructive pulmonary disease with severe restrictive lung disease and pharyngeal cellulitis causing stridor and expiratory wheezing as well. 2. Acute renal failure, being managed by Nephrology. Possibility of acute tubular necrosis. 3. Possibility of chronic kidney disease, stage III to IV, from diabetic nephropathy. 4. Lactic acidosis secondary to septic shock, which improved. 5. Morbid obesity. 6. Sleep apnea.
--- NOTE | 2016-12-16 19:12 | PN ---
Patient is a 61-year-old male admitted for severe sepsis and bacteremia, probably related to posterior pharyngeal cellulitis. His neck pain improved significantly. His wheezing resolved after using systemic steroids. I am not sure why patient is receiving Lasix at this time, but Nephrology evaluated the patient and recommended Lasix. I do not believe patient is retaining fluid at this time. Patient's wheezing, though, improved quite a bit. REVIEW OF SYSTEMS: CARDIOVASCULAR: No chest pain, no orthopnea, no PND, no palpitations. PULMONARY: Improved shortness of breath. GASTROINTESTINAL: No diarrhea, nausea or vomiting. No abdominal pain. Normoactive bowel sounds. NEUROLOGIC: No headaches, no weakness, no numbness.
[2016-12-16 21:45] LABS: Glucose,Whole Blood 383 mg/dL (75-99)
[2016-12-16] MEDS: SODIUM CHLORIDE 0.9% 1,000 ML IV SCH ×2 (21:58)
[2016-12-16] MEDS: INSULIN GLARGINE 100 UNIT/ML 10 ML VIAL SQ SCH (22:00)
[2016-12-17] MEDS: AMPICILLIN-SULBACTAM 3 GM in SODIUM CHLORIDE 0.9% 100 ML IVPB SCH ×4 (01:01→23:27)
[2016-12-17 06:28] LABS: Glucose,Whole Blood 356 mg/dL (75-99)
[2016-12-17] MEDS: INSULIN LISPRO (humaLOG) 300 UNIT/3 ML VIAL SQ SCH ×7 (07:10→21:12)
[2016-12-17 07:28] LABS: Calcium 8.2 mg/dL (8.4-10.2); Magnesium 1.9 mg/dL (1.6-2.3); Phosphorous 5.1 mg/dL (2.5-4.5)
[2016-12-17] MEDS: IPRATROPIUM-ALBUTEROL 3 ML NEB INHALATION SCH ×4 (07:37→19:08)
[2016-12-17] MEDS: SYMBICORT 160-4.5 MCG INHALER INHALATION SCH ×2 (07:37→19:08)
[2016-12-17 07:41] LABS: Potassium 4.2 mmol/L (3.5-5.1)
[2016-12-17 07:54] LABS: Basophils % (A) 0 %; CH 28.5; CHCM 32.2; Eosinophils # (A) 0.1 k/uL (0-0.7); Eosinophils % (A) 1 %; HCT 37.9 % (39.0-53.0); HDW 2.85; HGB 12.3 gm/dL (13.0-17.5); Luc % (Auto) 2; Lymphocytes # (A) 1.1 k/uL (1.0-4.8); Lymphocytes % (A) 9 %; MCHC 32.5 g/dL (31.0-37.0); MCV 89.1 fL (80.0-100.0); Mean Platelet Volume 8.7; Monocytes # (A) 0.6 k/uL (0-1.0); Monocytes % (A) 5 %; Neutrophils # (A) 10.2 k/uL (1.3-7.7); Neutrophils % (A) 83 %; RBC 4.26 m/uL (4.30-5.90); RDW 13.4 % (11.5-15.5); WBC 12.3 k/uL (3.8-10.6); WBC (Perox) 12.01
[2016-12-17] MEDS: ACETAMINOPHEN TAB 325 MG TAB PO PRN (08:38)
[2016-12-17] MEDS: amLODIPine 10 MG TAB PO SCH (08:39)
[2016-12-17] MEDS: APIXABAN 2.5 MG TABLET PO SCH ×2 (08:39→21:11)
[2016-12-17] MEDS: FAMOTIDINE 20 MG TAB PO SCH (08:39)
[2016-12-17] MEDS: ATORVASTATIN 20 MG TAB PO SCH (08:39)
[2016-12-17] MEDS: FUROSEMIDE 20 MG TAB PO SCH (08:40)
[2016-12-17] MEDS: LABETALOL 200 MG TAB PO SCH ×2 (08:42→21:11)
[2016-12-17] MEDS: LISINOPRIL 20 MG TAB PO SCH (08:43)
[2016-12-17] MEDS ORDERED: predniSONE 20 MG TAB PO SCH (09:00)
[2016-12-17] MEDS: CYCLOBENZAPRINE 10 MG TAB PO PRN (09:09)
[2016-12-17 11:39] LABS: Glucose,Whole Blood 250 mg/dL (75-99)
--- NOTE | 2016-12-17 12:05 | P.PN ---
Subjective Principal diagnosis: Acute septic shock, and streptococcal bacteremia obese 61-year-old male patient who weighs approximately 150 kg, came into the emergency department yesterday with generalized weakness, lethargy, fever and feeling sick in general. Immediately the patient was found to be in septic shock. The patient was hypotensive with diminished urine output. He is known to have urethral strictures and chronic urinary retention and previous history of urinary tract infections. As such a UA was done and the findings were quite abnormal and the urine itself was quite dirty and cloudy. At that point, the patient was started on IV fluids for aggressive fluid resuscitation. He got moved to the intensive care unit where he was placed on a combination of Zosyn and Zithromax. The patient was also placed on pressors briefly when he was on norepinephrine infusion and later on 6:30 AM the norepinephrine infusion was discontinued. Most recent blood pressure is in the 108 systolic. Urine output has been uncertain nontender the patient had difficulties in urination. He claims it has been difficult for him to insert a Davalos catheter because of urinary stricture. He refused a Davalos catheter. A urology consultation has been initiated. The patient also has BPH. Meanwhile, the patient was noted to have significantly elevated blood sugar with his blood sugar was in the 700s range. He was started on insulin drip which ultimately got discontinued. Patient is known to have diabetes mellitus and hypertension. He is morbidly obese. Earlier this morning he went into atrial fibrillation with a heart rate of 118. No chest pain. No shortness of breath. Minimal cough. No open wounds or sores. No change in mental status. He is complaining of a neck pain and he has had multiple falls. Note that the CAT scan of the brain and spine was done in the emergency department at time of arrival and it showed no acute intracranial hemorrhage or midline shift. There was mild ventricular prominence. There is evidence of old lacunar infarct in the right basal ganglia. Cervical spine showed moderate degree of multilevel degenerative changes. Note that his lactic acid level has dropped from 3.4 at baseline down to 1.8. Patient was reevaluated today on 12/14/2016, he is off norepinephrine, responded well initially to fluids along with norepinephrine, and he remains hemodynamically stable at this point. However intermittently he seems to be a bit confused, but he is running a temp of 101.5 earlier today. Blood cultures came back positive for strep agalactiae group B. Urine cultures are pending. Patient is on antibiotics in the form of Zosyn and vancomycin. Infectious disease consultation is pending. Patient is in A. fib with RVR, and he is hypertensive, hence I have recommended increasing the Cardizem drip to 10 mg per hour. IV fluid is down to 50 mL/h, patient did receive significant amount of fluid boluses yesterday up on presentation. ABG on 36% FiO2 showed a pO2 of 83 pCO2 of 38 pH of 7.36. Renal profile is a bit improved and creatinine is down to 2.50 from 2.69 yesterday. Lactic acid is down to 1.8 set of 3.4 on admission. Patient seems to be comfortable, in no distress. On 12/15/2016, patient remains off norepinephrine, hemodynamically stable, and I discussed his condition with the infectious disease specialist on the case, he believes that the source of infection could be a soft tissue, and he is raising the possibility of soft tissue of the neck, patient presented with neck pain, and the patient will have a CT of the head and neck today. Follow-up blood cultures after 12/12 remain negative. However blood cultures from 12/12 were all positive for strep agalactiae group B. Urine culture is nondiagnostic, it showed mostly skin madhu. Blood pressure remains elevated. Patient is now on oral labetalol, atrial fibrillation is controlled. Heparin was switched to eliquis. Patient seems to be short of breath, however the patient denies being short of breath, and he told me today that he is normally like this. Last ABG was relatively unremarkable. Patient is receiving diuretics as per cardiology on the case. On 12/16/2016, patient is doing much better, breathing a lot easier, was on BiPAP last night, however today he is on 2 L nasal cannula, and seems to be tolerating that well with O2 saturation in the mid and high 90s. patient feels more comfortable, even the neck pain is much improved. follow-up blood cultures have been negative compared to the initial blood cultures which were positive on admission. no clear source of soft tissue infection at this point. patient is denying any shortness of breath no cough no wheezing, no chest pain no nausea no vomiting no abdominal pain. hence I plan to transfer the patient out of the ICU today. antibiotics rankin, patient is now on Unasyn. On 12/2016, patient is doing well, he is presently on 2 L nasal cannula, not requiring BiPAP overnight. His labs are showing slight improvement WBC count today is 12.3 hemoglobin is 12.3 electrolytes are normal BUN is 65 creatinine is 2.10. Patient remains in A. fib with a relatively controlled heart rate, placed on eliquis,, and Lasix was discontinued. Hoping that his renal functioning will improve by holding diuretics. Objective - Vital Signs Vital signs: Vital Signs Temp 97.6 F 12/17/16 08:00 Pulse 105 H 12/17/16 08:00 Resp 22 12/17/16 08:00 BP 131/86 12/17/16 08:00 Pulse Ox 94 L 12/17/16 08:00 Intake & Output 12/16/16 12/17/16 12/17/16 18:59 06:59 18:59 Intake Total 640 480 Output Total 1170 150 Balance -530 330 Weight 158 kg Intake: IV 80 Sodium Chloride 0.9% 1, 80 000 ml @ 20 mls/hr IV . Q24H ALTHEA Rx#:[id number] Oral 560 480 Output: Urine 1170 150 Other: Voiding Method Urinal Toilet Urinal # Voids 2 1 1 # Bowel Movements 0 - Exam Physical Exam: Revealed a 61-year-old white male in no distress. Morbidly obese. HEENT:[Neck is supple.] [No neck masses.] [No thyromegaly.] [No JVD.] Chest: [Diminished breath sounds at the bases no crackles or rhonchi or wheezes. ] Cardiac Exam: [Normal S1 and S2, no S3 gallop, no murmur.] Abdomen: [Soft, nontender, no megaly, no rebound, no guarding, normal bowel sounds.] Extremities: [No clubbing, no edema, no cyanosis.] Neurological Exam: [No focal neurologic deficit.] - Labs CBC & Chem 7: 12/17/16 06:28 12/17/16 06:28 Labs: Abnormal Lab Results - Last 24 Hours (Table) 12/16/16 12/17/16 12/17/16 Range/Units 21:44 06:27 06:28 WBC 12.3 H (3.8-10.6) k/uL RBC 4.26 L (4.30-5.90) m/uL Hgb 12.3 L (13.0-17.5) gm/dL Hct 37.9 L (39.0-53.0) % Neutrophils # 10.2 H (1.3-7.7) k/uL Chloride (98-107) mmol/L BUN (9-20) mg/dL Creatinine (0.66-1.25) mg/dL Glucose (74-99) mg/dL POC Glucose (mg/dL) 383 H 356 H (75-99) mg/dL Calcium (8.4-10.2) mg/dL Phosphorus (2.5-4.5) mg/dL 12/17/16 12/17/16 Range/Units 06:28 11:37 WBC (3.8-10.6) k/uL RBC (4.30-5.90) m/uL Hgb (13.0-17.5) gm/dL Hct (39.0-53.0) % Neutrophils # (1.3-7.7) k/uL Chloride 109 H (98-107) mmol/L BUN 65 H (9-20) mg/dL Creatinine 2.10 H (0.66-1.25) mg/dL Glucose 369 H (74-99) mg/dL POC Glucose (mg/dL) 250 H (75-99) mg/dL Calcium 8.2 L (8.4-10.2) mg/dL Phosphorus 5.1 H (2.5-4.5) mg/dL Microbiology - Last 24 Hours (Table) 12/15/16 20:45 Gram Stain - Final Sputum Sputum Culture - Final Jayda albicans 12/14/16 04:04 Blood Culture - Preliminary Blood No Growth after 72 hours 12/15/16 04:06 Blood Culture - Preliminary Blood No Growth after 48 hours 12/13/16 23:08 Blood Culture - Preliminary Blood No Growth after 72 hours Assessment and Plan Plan: 1 acute septic shock/intravascular volume depletion/dehydration. Source of the sepsis is not clear, follow-up blood cultures since admission became negative. 2 profound hypovolemia , resolved, patient required fluid boluses, followed by Lasix later on, and now on Lasix was discontinued 3 diabetes mellitus with severe hyperglycemia, no signs of DKA 4 acute kidney injury secondary to above, hydrate the patient cautiously, and hold Lasix. 5 chronic obstructive uropathy secondary to BPH and urethral strictures 6 new onset atrial fibrillation with rapid ventricular response 7 lactic acidosis, improving 8 morbid obesity 9 chronic obstructive sleep apnea. 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 Consider discharge planning once the patient is felt ready for discharge by infectious disease, and hopefully can switch her to oral antibiotics. Length of treatment to be determined by the infectious disease physician on the case. Time with Patient: Less than 30
--- NOTE | 2016-12-17 15:24 | P.PN ---
Subjective Principal diagnosis: Atrial fibrillation This is a pleasant 61-year-old gentleman with a past medical history significant for morbid obesity, diabetes, hypertension, and dyslipidemia, was admitted to the emergency room because he was not feeling well. The patient history started about a week ago when he was experiencing some exertional dyspnea up on doing some work at home. The symptoms got worse over the next few days. Earlier today he went to the bathroom and obviously he fell on the floor and he was unable to get up because he was so weak. He did not experience any chest pain or discomfort and he did not lose his consciousness. The family brought the patient to the emergency room. In the ER the patient was found to have fever and also he was diagnosed with septic shock where he required vasopressors for brief period of time. We get involved in the care of the patient because he developed an A. fib with RVR. The patient is not aware of any prior cardiac history and there were seen a turn laster in the past. On physical examination, he has diminished breathing sounds of the right lung base. The lower extremities edema has improved. I'll follow-up with the patient today, he continues to be in A. fib with relatively controlled heart rates. He is alert be total 200 mg by mouth twice a day. He was started on anticoagulation with Eliquis and we will continue that. I will try to take the oxygen off and monitored the saturation to see if the patient can be off oxygen. Objective - Vital Signs Vital signs: Vital Signs Temp 97.6 F 12/17/16 12:00 Pulse 88 12/17/16 12:25 Resp 18 12/17/16 12:00 BP 144/76 12/17/16 12:00 Pulse Ox 96 12/17/16 12:00 Intake & Output 12/16/16 12/17/16 12/17/16 18:59 06:59 18:59 Intake Total 640 480 Output Total 1170 150 Balance -530 330 Weight 158 kg Intake: IV 80 Sodium Chloride 0.9% 1, 80 000 ml @ 20 mls/hr IV . Q24H ALTHEA Rx#:[id number] Oral 560 480 Output: Urine 1170 150 Other: Voiding Method Urinal Toilet Urinal # Voids 2 1 1 # Bowel Movements 0 - Constitutional General appearance: Present: no acute distress - Respiratory Respiratory: right: diminished, left: CTA - Cardiovascular Rhythm: irregularly irregular - Labs CBC & Chem 7: 12/17/16 06:28 12/17/16 06:28 Labs: Abnormal Lab Results - Last 24 Hours (Table) 12/16/16 12/17/16 12/17/16 Range/Units 21:44 06:27 06:28 WBC 12.3 H (3.8-10.6) k/uL RBC 4.26 L (4.30-5.90) m/uL Hgb 12.3 L (13.0-17.5) gm/dL Hct 37.9 L (39.0-53.0) % Neutrophils # 10.2 H (1.3-7.7) k/uL Chloride (98-107) mmol/L BUN (9-20) mg/dL Creatinine (0.66-1.25) mg/dL Glucose (74-99) mg/dL POC Glucose (mg/dL) 383 H 356 H (75-99) mg/dL Calcium (8.4-10.2) mg/dL Phosphorus (2.5-4.5) mg/dL 12/17/16 12/17/16 Range/Units 06:28 11:37 WBC (3.8-10.6) k/uL RBC (4.30-5.90) m/uL Hgb (13.0-17.5) gm/dL Hct (39.0-53.0) % Neutrophils # (1.3-7.7) k/uL Chloride 109 H (98-107) mmol/L BUN 65 H (9-20) mg/dL Creatinine 2.10 H (0.66-1.25) mg/dL Glucose 369 H (74-99) mg/dL POC Glucose (mg/dL) 250 H (75-99) mg/dL Calcium 8.2 L (8.4-10.2) mg/dL Phosphorus 5.1 H (2.5-4.5) mg/dL Microbiology - Last 24 Hours (Table) 12/15/16 20:45 Gram Stain - Final Sputum Sputum Culture - Final Jayda albicans 12/14/16 04:04 Blood Culture - Preliminary Blood No Growth after 72 hours 12/15/16 04:06 Blood Culture - Preliminary Blood No Growth after 48 hours 12/13/16 23:08 Blood Culture - Preliminary Blood No Growth after 72 hours Assessment and Plan Plan: Assessment Septic shock A. fib with RVR Morbid obesity Acute renal failure Hypovolemia Plan #1 continue the current dose of labetalol which is 200 mg by mouth twice a day #2 continue anticoagulation #3 follow-up with the patient #4 possible discharge home tomorrow
--- NOTE | 2016-12-17 15:45 | PN ---
Patient is seen for followup for acute kidney injury. He was initially admitted to the ICU and then transferred to a regular medical floor. Patient has urethral strictures but has had good urine output. He was quite hypotensive on initial admission and his creatinine was as high as 2.6 mg/dL. It is now on a downward trend down to 2.1 today. Patient received IV fluids initially; however, that was discontinued and he is currently maintained on Lasix. Patient is also on steroids. On examination, he is comfortable, awake, not in any acute distress. Blood pressure is 144/76, heart rate 78 per minute. He is afebrile. EXAMINATION OF THE HEART: S1 and S2. EXAMINATION OF THE LUNGS: Bilateral breath sounds are heard. ABDOMEN: Soft, morbidly obese. Examination of lower extremities shows no significant edema. HAIRSPRING STAKER exam is grossly intact. Patient is moving all 4 extremities. Labs reveal sodium 141, potassium 4.2. Hemoglobin 12.3. BUN 65, serum creatinine 2.1. Phosphorus 5.1. Magnesium 1.9. ASSESSMENT: 1. Acute kidney injury, acute tubular necrosis, currently non-oliguric, with improving renal function. 2. Volume overload, currently improved. 3. Morbid obesity. 4. Hypertension, fairly well controlled. 5. Bacteremia with blood cultures growing Strep agalactiae with evidence of cellulitis in the retropharyngeal area with no abscess formation, status post evaluation by ENT. 6. Atrial fibrillation with controlled ventricular response. PLAN: Repeat labs in a.m. Continue to avoid nephrotoxic agents. Previous creatinine was 1 in April of 2016.
[2016-12-17 16:22] LABS: Glucose,Whole Blood 257 mg/dL (75-99)
[2016-12-17] MEDS: SODIUM CHLORIDE 0.9% 1,000 ML IV SCH (20:00)
--- NOTE | 2016-12-17 20:03 | PN ---
DATE OF SERVICE: 12/17/2016 REASON FOR FOLLOWUP: Group B strep bacteremia and neck cellulitis. INTERVAL HISTORY: The patient is afebrile; has been feeling better. The neck area swelling and redness and pain have improved. Denies significant chest pain, shortness of breath. Occasional cough. NO abdominal pain. He did have one episode of loose stool this morning, though. On examination, blood pressure is 139/97 with a pulse of 100, temperature 97.4. He is 94% on room air. General description is a middle-aged male up in the chair in no distress. RESPIRATORY SYSTEM: Unlabored breathing. Clear to auscultation anteriorly. HEART: S1, S2. Regular rate and rhythm. ABDOMEN: Soft. No tenderness. NECK: Area of swelling and redness has improved. LABS: Hemoglobin is 12.3, white count 12.3. BUN of 65. Creatinine is 2.10. Follow-up blood cultures negative. DIAGNOSTIC IMPRESSION AND PLAN: Patient with sepsis with group B strep bacteremia. Source is likely neck cellulitis, currently responding to Unasyn. Plan to finish therapy with Augmentin for another 10 to 12 days. Continue supportive care.
[2016-12-17] MEDS ORDERED: INSULIN GLARGINE 100 UNIT/ML 10 ML VIAL SQ SCH ×2 (21:00)
[2016-12-17 21:02] LABS: Glucose,Whole Blood 264 mg/dL (75-99)
[2016-12-17] MEDS: ALPRAZolam 0.25 MG TAB PO PRN (23:27)
[2016-12-18] MEDS: MORPHINE SULFATE 4 MG/ML SYRINGE IVP PRN ×2 (04:09→08:20)
[2016-12-18 06:25] LABS: Glucose,Whole Blood 162 mg/dL (75-99)
[2016-12-18] MEDS: INSULIN LISPRO (humaLOG) 300 UNIT/3 ML VIAL SQ SCH ×4 (08:21→12:26)
[2016-12-18] MEDS: APIXABAN 2.5 MG TABLET PO SCH (08:22)
[2016-12-18] MEDS: ATORVASTATIN 20 MG TAB PO SCH (08:22)
[2016-12-18] MEDS: AMPICILLIN-SULBACTAM 3 GM in SODIUM CHLORIDE 0.9% 100 ML IVPB SCH (08:22)
[2016-12-18] MEDS: FAMOTIDINE 20 MG TAB PO SCH (08:22)
[2016-12-18] MEDS: amLODIPine 10 MG TAB PO SCH (08:22)
[2016-12-18] MEDS: LABETALOL 200 MG TAB PO SCH (08:22)
[2016-12-18] MEDS: IPRATROPIUM-ALBUTEROL 3 ML NEB INHALATION SCH ×2 (08:44→11:32)
[2016-12-18] MEDS: SYMBICORT 160-4.5 MCG INHALER INHALATION SCH (08:45)
[2016-12-18] MEDS ORDERED: predniSONE 10 MG TAB PO SCH (09:00)
--- NOTE | 2016-12-18 09:56 | PN ---
Patient is seen for followup for acute kidney injury. Patient was initially admitted to the ICU. He was hypotensive. His renal function has improved to some degree with serum creatinine down to about 2.1 from yesterday. It had peaked at 2.69 mg/dL. Prior creatinine was about 0.8 mg/dL as outpatient. Patient does have urethral strictures, but he has been voiding well. He follows with Urology as outpatient. He is currently being treated for group B strep bacteremia and the source is cellulitis in the neck area. Patient has been evaluated by ENT and no further intervention from their standpoint at this time. Overall, patient has been improving. No labs are available today. On examination, blood pressure was high at 183/95, heart rate about 83 per minute, patient is afebrile. Examination of the heart, S1 and S2. Examination of the lungs, bilateral breath sounds are heard. Abdomen is soft, nontender, obese. Examination of lower extremities shows edema 1+ bilaterally. SENIOR ORACLE DATABASE ADMINISTRATOR exam is grossly intact. Labs are pending from today. ASSESSMENT: 1. Acute kidney injury, acute tubular necrosis, secondary to hypotension, hypoperfusion, currently nonoliguric. 2. Urethral strictures, which are chronic. Currently, patient has been voiding well and there is no evidence of hydronephrosis. 3. Group B strep agalactiae bacteremia secondary to cellulitis in the neck area. 4. Hypertension, was controlled. Currently blood pressure is high, Patient was in severe pain in the back area and has just received morphine. We will follow up on his blood pressure readings. Continue off of INES inhibitors for now. We can increase the labetalol if blood pressure remains uncontrolled. 5. Mild volume overload, currently improved. Patient is off of diuretics. PLAN: Check labs today as well as in a.m. Patient will need followup as outpatient to follow up on his acute kidney injury as prior creatinine was 0.8 mg/dL.
[2016-12-18 11:47] LABS: Glucose,Whole Blood 192 mg/dL (75-99)
--- NOTE | 2016-12-18 12:20 | P.PN ---
Subjective Principal diagnosis: Acute septic shock, and streptococcal bacteremia obese 61-year-old male patient who weighs approximately 150 kg, came into the emergency department yesterday with generalized weakness, lethargy, fever and feeling sick in general. Immediately the patient was found to be in septic shock. The patient was hypotensive with diminished urine output. He is known to have urethral strictures and chronic urinary retention and previous history of urinary tract infections. As such a UA was done and the findings were quite abnormal and the urine itself was quite dirty and cloudy. At that point, the patient was started on IV fluids for aggressive fluid resuscitation. He got moved to the intensive care unit where he was placed on a combination of Zosyn and Zithromax. The patient was also placed on pressors briefly when he was on norepinephrine infusion and later on 6:30 AM the norepinephrine infusion was discontinued. Most recent blood pressure is in the 108 systolic. Urine output has been uncertain nontender the patient had difficulties in urination. He claims it has been difficult for him to insert a Davalos catheter because of urinary stricture. He refused a Davalos catheter. A urology consultation has been initiated. The patient also has BPH. Meanwhile, the patient was noted to have significantly elevated blood sugar with his blood sugar was in the 700s range. He was started on insulin drip which ultimately got discontinued. Patient is known to have diabetes mellitus and hypertension. He is morbidly obese. Earlier this morning he went into atrial fibrillation with a heart rate of 118. No chest pain. No shortness of breath. Minimal cough. No open wounds or sores. No change in mental status. He is complaining of a neck pain and he has had multiple falls. Note that the CAT scan of the brain and spine was done in the emergency department at time of arrival and it showed no acute intracranial hemorrhage or midline shift. There was mild ventricular prominence. There is evidence of old lacunar infarct in the right basal ganglia. Cervical spine showed moderate degree of multilevel degenerative changes. Note that his lactic acid level has dropped from 3.4 at baseline down to 1.8. Patient was reevaluated today on 12/14/2016, he is off norepinephrine, responded well initially to fluids along with norepinephrine, and he remains hemodynamically stable at this point. However intermittently he seems to be a bit confused, but he is running a temp of 101.5 earlier today. Blood cultures came back positive for strep agalactiae group B. Urine cultures are pending. Patient is on antibiotics in the form of Zosyn and vancomycin. Infectious disease consultation is pending. Patient is in A. fib with RVR, and he is hypertensive, hence I have recommended increasing the Cardizem drip to 10 mg per hour. IV fluid is down to 50 mL/h, patient did receive significant amount of fluid boluses yesterday up on presentation. ABG on 36% FiO2 showed a pO2 of 83 pCO2 of 38 pH of 7.36. Renal profile is a bit improved and creatinine is down to 2.50 from 2.69 yesterday. Lactic acid is down to 1.8 set of 3.4 on admission. Patient seems to be comfortable, in no distress. On 12/15/2016, patient remains off norepinephrine, hemodynamically stable, and I discussed his condition with the infectious disease specialist on the case, he believes that the source of infection could be a soft tissue, and he is raising the possibility of soft tissue of the neck, patient presented with neck pain, and the patient will have a CT of the head and neck today. Follow-up blood cultures after 12/12 remain negative. However blood cultures from 12/12 were all positive for strep agalactiae group B. Urine culture is nondiagnostic, it showed mostly skin madhu. Blood pressure remains elevated. Patient is now on oral labetalol, atrial fibrillation is controlled. Heparin was switched to eliquis. Patient seems to be short of breath, however the patient denies being short of breath, and he told me today that he is normally like this. Last ABG was relatively unremarkable. Patient is receiving diuretics as per cardiology on the case. On 12/16/2016, patient is doing much better, breathing a lot easier, was on BiPAP last night, however today he is on 2 L nasal cannula, and seems to be tolerating that well with O2 saturation in the mid and high 90s. patient feels more comfortable, even the neck pain is much improved. follow-up blood cultures have been negative compared to the initial blood cultures which were positive on admission. no clear source of soft tissue infection at this point. patient is denying any shortness of breath no cough no wheezing, no chest pain no nausea no vomiting no abdominal pain. hence I plan to transfer the patient out of the ICU today. antibiotics rankin, patient is now on Unasyn. On 12/17/2016, patient is doing well, he is presently on 2 L nasal cannula, not requiring BiPAP overnight. His labs are showing slight improvement WBC count today is 12.3 hemoglobin is 12.3 electrolytes are normal BUN is 65 creatinine is 2.10. Patient remains in A. fib with a relatively controlled heart rate, placed on eliquis,, and Lasix was discontinued. Hoping that his renal functioning will improve by holding diuretics. On 12/18/2016, patient continues to do well. No cough no wheezing no shortness of breath. His cardiac issues are being addressed by the manager distribution center on the case, and his bacteremia is being addressed by the infectious disease specialist on the case. Patient remains on antibiotics, and the length of treatment and what can of antibiotics he will need an outpatient basis will be addressed by the infectious disease physician. Hence I will go ahead and sign off and see the patient on when necessary basis. Objective - Vital Signs Vital signs: Vital Signs Temp 97.1 F L 12/18/16 00:00 Pulse 85 12/18/16 11:52 Resp 18 12/18/16 08:00 BP 183/95 12/18/16 08:00 Pulse Ox 98 12/18/16 08:00 Intake & Output 12/17/16 12/18/16 12/18/16 18:59 06:59 18:59 Intake Total 480 860 480 Output Total 975 Balance -495 860 480 Weight 155.2 kg Intake: IV 160 Sodium Chloride 0.9% 1, 160 000 ml @ 20 mls/hr IV . Q24H [facility] Rx#:[id number] Intake, IV Titration 100 Amount Ampicillin-Sulbactam 3 gm 100 In Sodium Chloride 0.9% 100 ml @ 100 mls/hr IVPB Q8HR [facility] Rx#:[id number] Oral 480 600 480 Output: Urine 975 Other: Voiding Method Toilet Urinal # Voids 3 # Bowel Movements 2 - Exam Physical Exam: Revealed a 61-year-old white male in no distress. Morbidly obese. HEENT:[Neck is supple.] [No neck masses.] [No thyromegaly.] [No JVD.] Chest: [Diminished breath sounds at the bases no crackles or rhonchi or wheezes. ] Cardiac Exam: [Normal S1 and S2, no S3 gallop, no murmur.] Abdomen: [Soft, nontender, no megaly, no rebound, no guarding, normal bowel sounds.] Extremities: [No clubbing, no edema, no cyanosis.] Neurological Exam: [No focal neurologic deficit.] - Labs CBC & Chem 7: 12/17/16 06:28 12/17/16 06:28 Labs: Abnormal Lab Results - Last 24 Hours (Table) 12/17/16 12/17/16 12/18/16 Range/Units 16:20 21:01 06:23 POC Glucose (mg/dL) 257 H 264 H 162 H (75-99) mg/dL 12/18/16 Range/Units 11:45 POC Glucose (mg/dL) 192 H (75-99) mg/dL Microbiology - Last 24 Hours (Table) 12/14/16 04:04 Blood Culture - Preliminary Blood No Growth after 96 hours 12/15/16 04:06 Blood Culture - Preliminary Blood No Growth after 72 hours 12/13/16 23:08 Blood Culture - Preliminary Blood No Growth after 96 hours 12/15/16 20:45 Gram Stain - Final Sputum Sputum Culture - Final Jayda albicans Assessment and Plan Plan: 1 acute septic shock/intravascular volume depletion/dehydration. Source of the sepsis is not clear, follow-up blood cultures since admission became negative. 2 profound hypovolemia , resolved, patient required fluid boluses, followed by Lasix later on, and now on Lasix was discontinued 3 diabetes mellitus with severe hyperglycemia, no signs of DKA 4 acute kidney injury secondary to above, hydrate the patient cautiously, and hold Lasix. 5 chronic obstructive uropathy secondary to BPH and urethral strictures 6 new onset atrial fibrillation with rapid ventricular response 7 lactic acidosis, improving 8 morbid obesity 9 chronic obstructive sleep apnea. 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 Consider discharge planning once the patient is felt ready for discharge by infectious disease, and hopefully can switch her to oral antibiotics. Length of treatment to be determined by the infectious disease physician on the case. We will sign off for now and see the patient on when necessary basis. Time with Patient: Less than 30
[2016-12-18 12:33] VITALS: BP 169/98; PULSE 106; RESP 16; TEMP 97.9
--- NOTE | 2016-12-18 15:11 | P.PN ---
Subjective Principal diagnosis: Atrial fibrillation A 6 pleasant 7-year-old gentleman with a past medical history significant for morbid obesity, diabetes, hypertension and dyslipidemia. Presented to the emergency department with progressively worsening shortness of breath on exertion and weakness, status post fall. Upon presentation, patient was found to be febrile and diagnosed with septic shock. She was put on consult because of atrial fibrillation with rapid ventricular response. His admission, patient is doing quite a bit better. He is on Eliquis and labetalol 200 mg twice a day. He has been on room air, O2 saturation with activity after shower around 96%. Upon examination, patient is resting comfortably in bed, head of bed flat. Objective - Vital Signs Vital signs: Vital Signs Temp 97.9 F 12/18/16 12:00 Pulse 106 H 12/18/16 12:00 Resp 16 12/18/16 12:00 BP 169/98 12/18/16 12:00 Pulse Ox 95 12/18/16 12:00 Intake & Output 12/17/16 12/18/16 12/18/16 18:59 06:59 18:59 Intake Total 480 860 960 Output Total 975 Balance -495 860 960 Weight 155.2 kg Intake: IV 160 Sodium Chloride 0.9% 1, 160 000 ml @ 20 mls/hr IV . Q24H [facility] Rx#:[id number] Intake, IV Titration 100 Amount Ampicillin-Sulbactam 3 gm 100 In Sodium Chloride 0.9% 100 ml @ 100 mls/hr IVPB Q8HR [facility] Rx#:[id number] Oral 480 600 960 Output: Urine 975 Other: Voiding Method Toilet Urinal # Voids 3 # Bowel Movements 2 - Exam PHYSICAL EXAMINATION: HEENT: Head is atraumatic, normocephalic. Pupils equal, round. Neck is supple. There is no elevated jugular venous pressure. HEART EXAMINATION: Heart sounds regular, S1 and S2 irregular irregular No murmur or gallop heard. CHEST EXAMINATION: Lungs are clear to auscultation diminished air entry bilateral bases. No chest wall tenderness is noted on palpation or with deep breathing. ABDOMEN: Soft, nontender. Bowel sounds are heard. No organomegaly noted. EXTREMITIES: 2+ peripheral pulses with evidence of mild peripheral edema and no calf tenderness noted. NEUROLOGIC patient is awake, alert and oriented x3. . - Labs CBC & Chem 7: 12/17/16 06:28 12/17/16 06:28 Labs: Abnormal Lab Results - Last 24 Hours (Table) 12/17/16 12/17/16 12/18/16 Range/Units 16:20 21:01 06:23 POC Glucose (mg/dL) 257 H 264 H 162 H (75-99) mg/dL 12/18/16 Range/Units 11:45 POC Glucose (mg/dL) 192 H (75-99) mg/dL Microbiology - Last 24 Hours (Table) 12/14/16 04:04 Blood Culture - Preliminary Blood No Growth after 96 hours 12/15/16 04:06 Blood Culture - Preliminary Blood No Growth after 72 hours 12/13/16 23:08 Blood Culture - Preliminary Blood No Growth after 96 hours Assessment and Plan Plan: Assessment and plan #1 septic shock #2 atrial fibrillation with rapid ventricular response #3 morbid obesity #5 acute renal failure #6 hypovolemia From cardiology standpoint, medications were reviewed and we will continue the same. Anticipate the patient will be discharged home. We'll follow-up the patient on an outpatient basis. [facility] MAGISTRATE note has been reviewed, I agree with a documented findings and plan of care. Patient was seen and examined.
--- NOTE | 2016-12-18 15:47 | PN ---
DATE OF SERVICE: 12/18/2016 REASON FOR FOLLOWUP: Group B strep bacteremia and neck cellulitis. INTERVAL HISTORY: The patient is afebrile. He has been breathing comfortably. Denies significant chest pain. The neck swelling and redness have improved. No abdominal pain. Did complain of some diarrhea, though. On examination, blood pressure is 159/98 with a pulse of 106, temperature 97.9. He is 95% on room air. General description is a middle-aged male lying in bed in no distress. HEENT EXAMINATION: The neck swelling and redness have improved. LUNGS: Unlabored breathing. Clear to auscultation anteriorly. HEART: S1, S2. Regular rate and rhythm. ABDOMEN: Soft. No tenderness. LABS: No new labs have been obtained today. DIAGNOSTIC IMPRESSION AND PLAN: 1. Patient with neck cellulitis with group B strep bacteremia. Patient seems to have shown overall clinical improvement. Plan is to finish therapy with p.o. Augmentin for another 10 days with close outpatient followup. 2. Patient with diarrhea, antibiotic-associated. Will add Questran for symptomatic relief and toxin binding. Continue supportive care.
--- NOTE | 2016-12-18 17:07 | P.PN ---
Subjective Date of service 12/17/2016. Progress Note being dictated for Dr. Harrell. Interval history: This is a 61-year-old gentleman admitted with septic shock secondary to bacteremia with group B strep bacteremia,neck cellulitis, lactic acidosis, acute renal failure, and multiple other medical issues. Maintained on Unasyn as per infectious disease. Systemic steroids tapering in progress with wheezing resolved. Breathing much improved, patient lying flat in bed. Oxygen has been weaned off and patient maintaining O2 sats of 94% on room air. Telemetry atrial fibrillation with controlled ventricular rate. Patient declining physical therapy, ambulating with walker to and from bathroom. Diuretics discontinued, Creatinine improving, down to 2.1.afebrile, WBC 12.3 .Denies chest pain, palpitations or shortness of breath. Objective - Vital Signs Vital signs: Vital Signs Temp 97.6 F 12/17/16 12:00 Pulse 88 12/17/16 12:25 Resp 18 12/17/16 12:00 BP 144/76 12/17/16 12:00 Pulse Ox 96 12/17/16 12:00 Intake & Output 12/16/16 12/17/16 12/17/16 18:59 06:59 18:59 Intake Total 640 480 Output Total 1170 975 Balance -530 -495 Weight 158 kg Intake: IV 80 Sodium Chloride 0.9% 1, 80 000 ml @ 20 mls/hr IV . Q24H [facility] Rx#:[id number] Oral 560 480 Output: Urine 1170 975 Other: Voiding Method Urinal Toilet Urinal # Voids 2 1 3 # Bowel Movements 0 2 - Exam PHYSICAL EXAM: VITAL SIGNS: As above GENERAL: [Sitting up in chair, no acute distress, eating lunch] HEENT: [Pupils equal conjunctiva normal. No conjunctival pallor, no scleral icterus] NECK: [Supple, no JVD] RESPIRATORY EFFORT:[Normal] LUNGS: [Clear to auscultation, bilateral bases diminished, no wheezes rhonchi or crackles] CARDIOVASCULAR[S1 and S2, no edema] GI: [Abdomen soft, nontender, positive bowel sounds. No guarding, no rigidity] PSYCH: [Alert and oriented -3, mood and affect normal.] NEURO: No focal deficits, - Labs CBC & Chem 7: 12/17/16 06:28 12/17/16 06:28 Labs: Abnormal Lab Results - Last 24 Hours (Table) 12/16/16 12/17/16 12/17/16 Range/Units 21:44 06:27 06:28 WBC 12.3 H (3.8-10.6) k/uL RBC 4.26 L (4.30-5.90) m/uL Hgb 12.3 L (13.0-17.5) gm/dL Hct 37.9 L (39.0-53.0) % Neutrophils # 10.2 H (1.3-7.7) k/uL Chloride (98-107) mmol/L BUN (9-20) mg/dL Creatinine (0.66-1.25) mg/dL Glucose (74-99) mg/dL POC Glucose (mg/dL) 383 H 356 H (75-99) mg/dL Calcium (8.4-10.2) mg/dL Phosphorus (2.5-4.5) mg/dL 12/17/16 12/17/16 12/17/16 Range/Units 06:28 11:37 16:20 WBC (3.8-10.6) k/uL RBC (4.30-5.90) m/uL Hgb (13.0-17.5) gm/dL Hct (39.0-53.0) % Neutrophils # (1.3-7.7) k/uL Chloride 109 H (98-107) mmol/L BUN 65 H (9-20) mg/dL Creatinine 2.10 H (0.66-1.25) mg/dL Glucose 369 H (74-99) mg/dL POC Glucose (mg/dL) 250 H 257 H (75-99) mg/dL Calcium 8.2 L (8.4-10.2) mg/dL Phosphorus 5.1 H (2.5-4.5) mg/dL Microbiology - Last 24 Hours (Table) 12/15/16 20:45 Gram Stain - Final Sputum Sputum Culture - Final Jayda albicans 12/14/16 04:04 Blood Culture - Preliminary Blood No Growth after 72 hours 12/15/16 04:06 Blood Culture - Preliminary Blood No Growth after 48 hours 12/13/16 23:08 Blood Culture - Preliminary Blood No Growth after 72 hours Assessment and Plan Plan: 1. [Septic shock, improved secondary to bacteremia with strep agalactiae, possible source being posterior pharyngeal cellulitis]. On admission , Presented with severe dehydration, significant intravascular volume depletion secondary to diabetes mellitus, high elevated blood sugars and required aggressive hydration/fluid resuscitation. 2. [Pneumonia ruled out]. Possible underlying COPD with severe restrictive lung disease 3. [Acute renal failure, possible acute tubular necrosis]. 4. 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 5. [Lactic acidosis secondary to septic shock, improved]. 6. [Morbid obesity, BMI 50.5]. 7. [Sleep apnea]. 8. Diabetes mellitus, [id number] 9. New onset A. fib with RVR, anticoagulated on Eliquis 10. Chronic lacunar infarct of the brain Plan continue on current medication regime ,monitoring and symptomatic treatment. Case management to ensure patient has outpatient coupon/coverage for Eliquis. Increase Lantus dose as ordered, continue same pre-meal insulin orders. Tapering of steroids in progress as ordered. Lasix, lisinopril DC'd r/ t renal function. Discharge planning in progress for tomorrow. Further recommendations to follow. The impression and plan of care has been dictated as directed. : I performed a H&P examination of this patient and discussed the same with the dictator. I agree with the dictator's note. Any additional findings/opinions/ etc. will be noted.
[2016-12-18] MEDS ORDERED: CHOLESTYRAMINE (WITH SUGAR) 4 GM PACKET PO SCH (18:00)
--- NOTE | 2016-12-18 18:42 | P.DS ---
Providers Date of admission: 12/12/16 19:34 Expected date of discharge: 12/18/16 Attending physician: Dawit Harrell Consults: 12/13/16 08:20 Consult Physician Routine Consulting Provider: Misael Plasencia Consult Reason/Comments: retention Do you want consulting provider notified?: Yes 12/13/16 09:42 Consult Physician Routine Consulting Provider: Anthony Anguiano Consult Reason/Comments: AFIb Do you want consulting provider notified?: Yes 12/14/16 12:39 Consult Physician Routine Consulting Provider: David Watt Consult Reason/Comments: sepsis Do you want consulting provider notified?: Yes 12/15/16 10:09 Consult Physician Routine Consulting Provider: Aminta Melissa Consult Reason/Comments: renal failure acute kidney injury Do you want consulting provider notified?: Yes, Notify in am 12/15/16 14:48 Consult Physician Urgent Consulting Provider: Kyle Caro Consult Reason/Comments: questionable retropharengeal cellulitis Do you want consulting provider notified?: Yes 12/15/16 16:03 Consult Physician Routine Consulting Provider: Chavo Joseph Consult Reason/Comments: retrpharyngeal cellulitis/abcess Do you want consulting provider notified?: Yes Primary care physician: Tyrese Kaur Hospital Course: Final Diagnoses: 1. [Septic shock, improved secondary to bacteremia with strep agalactiae, possible source being posterior pharyngeal cellulitis]. 2. [Pneumonia ruled out]. Possible underlying COPD with severe restrictive lung disease 3. [Acute renal failure, possible acute tubular necrosis]. 4. 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 5. [Lactic acidosis secondary to septic shock, improved]. 6. [Morbid obesity, BMI 50.5]. 7. [Sleep apnea]. 8. Diabetes mellitus, hemoglobin A1c 11.1 uncontrolled, worsened further by steroids 9. New onset A. fib with RVR, status post Cardizem drip, now controlled ventricular rate, anticoagulated on Eliquis 10. Chronic lacunar infarct of the brain Hospital course:his is a 61-year-old gentleman admitted with septic shock secondary to bacteremia with group B strep bacteremia,neck cellulitis, lactic acidosis, acute renal failure, new onset A. fib with RVR, significantly elevated blood sugars in the 700s and multiple other medical issues. On admission ,presented with severe dehydration, significant intravascular volume depletion secondary to diabetes mellitus, high elevated blood sugars and required aggressive hydration/fluid resuscitation. Required pressors briefly and was initially admitted to the ICU. Echo suboptimal limited study with RV, left atrium, right atrium, aortic valve, mitral valve not well visualized, difficult to assess EF. Chest x-ray negative for pneumonia. CT of cervical spine and brain negative for acute fracture, no acute intracranial hemorrhage or midline shift. Initial blood cultures with group B Streptococcus agalactiae. Evaluated and treated by multiple consults as listed above. Soft tissue CT reported posterior pharyngeal cellulitis, underwent a laryngoscopy with Dr. Caro; reported adenoidectomy scar with no evidence of a nasopharyngitis or rectal pharyngeal abscess, no evidence of infection of the nasopharynx ,oropharynx or hypopharynx. Maintained on Unasyn as per infectious disease. Wheezing resolved, steroids and oxygen tapered off.Neck selling and redness much improved. Significant clinical improvement. Patient has been cleared by all consults for discharge. Patient will require Lantus and pre- meal insulin at discharge, along with outpatient diabetic education classes. Patient is being discharged home in a stable condition with guarded prognosis. The impression and plan of care has been dictated as directed. : I performed a H&P examination of this patient and discussed the same with the dictator. I agree with the dictator's note. Any additional findings/opinions/ etc. will be noted. Patient Condition at Discharge: Stable Plan - Discharge Summary New Discharge Prescriptions: Albuterol Inhaler [Ventolin Hfa Inhaler] 2 puff INHALATION Q6HR PRN #1 inhaler PRN Reason: Shortness Of Breath Amoxic-Pot Clav 875-125Mg [Augmentin 875-125] 1 tab PO Q12HR #24 tablet Apixaban [Eliquis] 2.5 mg PO BID #60 tablet Budesonide-Formot 160-4.5 Mcg [Symbicort 160-4.5 Mcg Inhaler] 2 puff INHALATION RT-BID #1 inh Cyclobenzaprine [Flexeril] 10 mg PO TID PRN #30 tab PRN Reason: Muscle Spasm Famotidine [Pepcid] 20 mg PO DAILY #30 tab INSULIN LISPRO (humaLOG) [humaLOG (formulary)] 20 unit SQ AC-TID #1 vial Insulin Glargine [Lantus] 65 unit SQ HS #1 vial amLODIPine [Norvasc] 10 mg PO DAILY #30 tab Discharge Medication List ALPRAZolam [Xanax] 0.25 mg PO BID PRN 12/12/16 [History] Aspirin [Adult Low Dose Aspirin EC] 81 mg PO DAILY 12/12/16 [History] Atorvastatin [Lipitor] 20 mg PO DAILY 12/12/16 [History] Labetalol [Trandate] 200 mg PO BID 12/12/16 [History] Zolpidem [Ambien] 5 mg PO HS PRN 12/12/16 [History] oxyCODONE-APAP 5-325MG [Percocet 5-325 mg] 0.5 - 1 tab PO Q6HR PRN 12/12/16 [ History] Albuterol Inhaler [Ventolin Hfa Inhaler] 2 puff INHALATION Q6HR PRN #1 inhaler 12/18/16 [Rx] Amoxic-Pot Clav 875-125Mg [Augmentin 875-125] 1 tab PO Q12HR #24 tablet [Rx] Apixaban [Eliquis] 2.5 mg PO BID #60 tablet 12/18/16 [Rx] Budesonide-Formot 160-4.5 Mcg [Symbicort 160-4.5 Mcg Inhaler] 2 puff INHALATION RT-BID #1 inh 12/18/16 [Rx] Cyclobenzaprine [Flexeril] 10 mg PO TID PRN #30 tab 12/18/16 [Rx] Famotidine [Pepcid] 20 mg PO DAILY #30 tab 12/18/16 [Rx] INSULIN LISPRO (humaLOG) [humaLOG (formulary)] 20 unit SQ AC-TID #1 vial [Rx] Insulin Glargine [Lantus] 65 unit SQ HS #1 vial 12/18/16 [Rx] amLODIPine [Norvasc] 10 mg PO DAILY #30 tab 12/18/16 [Rx] Follow up Appointment(s)/Referral(s): Sandee Cardoza MD [STAFF PHYSICIAN] - 01/01/17 1:45 pm Aminta Melissa MD [STAFF PHYSICIAN] - 1 Week (Office closed - please called to make appointment) Anthony Anguiano MD [STAFF PHYSICIAN] - 01/05/17 2:45 pm Tyrese Kaur MD [Primary Care Provider] - 3 Days (please call to make appointment) Misael Plasencia MD [STAFF PHYSICIAN] - 1 Week (please call to make appointment) Ambulatory/Diagnostic Orders: Complete Blood Count w/diff [LAB.AMB] Time Frame: 3 Days, Location: Determined By Patient Patient Instructions/Handouts: Diabetic Ketoacidosis (DC), Sepsis (GEN) Activity/Diet/Wound Care/Special Instructions: Diet: Cardiac, consistent carb Pt will need a sleep study. Activity: Limited until follow up Accu-Cheks before meals and at bedtime, maintain log and take to follow-up visit with PCP for further recommendations OP Diabetic ed. classes Discharge Disposition: HOME SELF-CARE
--- NOTE | 2016-12-25 08:18 | P.PN ---
Progress Note - Text This is an addendum on a progress note. The atrial fibrillation is paroxysmal atrial fibrillation.
== END 2016-12-18 15:52 | disposition home or self-care (01) | DRG 871 ==
LOC: EC 16:53 → 6ICU 19:34 → 6SEL 12-16 11:45
PROVIDERS: ADMIT Internal Medicine; ATTEND Internal Medicine
PROC: 0CJS8ZZ Inspection of Larynx, Via Natural or Artificial Opening Endoscopic (ICD-10-PCS; principal; 2016-12-15)
DX: A40.1 Sepsis due to streptococcus, group B (principal); E13.10 Other specified diabetes mellitus with ketoacidosis without coma; N17.0 Acute kidney failure with tubular necrosis; R65.21 Severe sepsis with septic shock; I24.8 Other forms of acute ischemic heart disease; I13.0 Hypertensive heart and chronic kidney disease with heart failure and stage 1 through stage 4 chronic kidney disease, or unspecified chronic kidney disease; I50.9 Heart failure, unspecified; J39.1 Other abscess of pharynx; N18.4 Chronic kidney disease, stage 4 (severe); E11.21 Type 2 diabetes mellitus with diabetic nephropathy; Z68.43 Body mass index [BMI] 50.0-59.9, adult; E87.1 Hypo-osmolality and hyponatremia; L03.221 Cellulitis of neck; N39.0 Urinary tract infection, site not specified; E66.01 Morbid (severe) obesity due to excess calories; E86.0 Dehydration; E11.22 Type 2 diabetes mellitus with diabetic chronic kidney disease; E78.5 Hyperlipidemia, unspecified; E86.1 Hypovolemia; E87.6 Hypokalemia; G47.33 Obstructive sleep apnea (adult) (pediatric); J39.2 Other diseases of pharynx; Z79.01 Long term (current) use of anticoagulants; J45.909 Unspecified asthma, uncomplicated; J98.4 Other disorders of lung; N35.9 Urethral stricture, unspecified; N40.1 Benign prostatic hyperplasia with lower urinary tract symptoms; T50.2X5A Adverse effect of carbonic-anhydrase inhibitors, benzothiadiazides and other diuretics, initial encounter; W18.30XA Fall on same level, unspecified, initial encounter; Z79.82 Long term (current) use of aspirin; Z79.84 Long term (current) use of oral hypoglycemic drugs; Z79.899 Other long term (current) drug therapy; Z86.73 Personal history of transient ischemic attack (TIA), and cerebral infarction without residual deficits; Z87.440 Personal history of urinary (tract) infections; I48.0 Paroxysmal atrial fibrillation; K11.7 Disturbances of salivary secretion; M54.2 Cervicalgia; M62.838 Other muscle spasm
CPT/HCPCS: 36415; 36600; 70450; 70490; 71010; 71020; 72125; 76770; 80048; 80051; 80053; 81001; 82009; 82550; 82553; 82565; 82805; 82947; 83036; 83605; 83735; 83880; 84100; 84484; 84520; 85025; 85610; 85730; 87040; 87070; 87077; 87086; 87186; 87205; 87502; 93005; 93306; 94640; 94644; 94660; 96361; 96365; 96375; 99291